=== PATIENT | female | born 1945 | race Caucasian/White ===

== ENCOUNTER 2016-07-31 07:48 | Day surgery (SDC) | payer MEDICARE, MEDICAID ==
[~2016-07-31 07:48] MED LIST: EPINEPHrine 1:10,000 1 MG/10 ML Syringe ONE; Midazolam 1 MG/ML 2 ML SDV ONE; Propofol 200 MG/20 ML SDV ONE
[2016-07-31] MEDS ORDERED: Sodium Chloride 0.9% 10 ML Syringe FLUSH PRN (08:00)
[2016-07-31] MEDS ORDERED: Sodium Chloride 0.9% 1,000 ML IV SCH (08:00)
[2016-07-31] MEDS ORDERED: Propofol 200 MG/20 ML SDV ONE (08:54)
[2016-07-31] MEDS ORDERED: Midazolam 1 MG/ML 2 ML SDV ONE (08:54)
--- NOTE | 2016-07-31 09:25 | PCM.OPNOTE ---
- General Post-Op/Procedure Note Date of Surgery/Procedure: 07/31/16 Operative Procedure(s): Upper GI endoscopy Pre Op Diagnosis: And deficiency anemia and upper abdominal pain. Rule out gastric ulcer, gastritis, gastric malignancy, etc. Post-Op Diagnosis: Same Anesthesia Technique: MAC Primary Surgeon: Rafael Molina Complications: None Condition: Good Free Text/Narrative:: INFORMED CONSENT: Patient is here today for elective upper GI endoscopy. All aspects of this procedure have been discussed with the patient. All possible complications also, including possibility of perforation, infection, pain, bleeding, numbness of the throat, swallowing difficulty and unknown complications. In the event of perforation the patient may need surgical exploration to repair the defect. The patient understands fully well. Patient did not have any further questions for me at the end of my interview. The patient wishes for me to proceed. INSTRUMENT USED: Video gastroscope ANESTHESIA: [MAC] ASA CLASSIFICATION: [2] PROCEDURE PERFORMED: [upper GI endoscopy] PHARYNX: Normal. ESOPHAGUS: Normal. Proximal: Normal. Middle: Normal. Lower: Normal. GE Junction: Normal. STOMACH: Normal. Cardia: Normal. Fundus: Normal. Lesser Curvature: Normal. Greater Curvature: Normal. Antrum: Normal. Pylorus: Normal. DUODENUM: Normal. First Part: Normal. Second Part: Normal. Third Part: Normal. RETROFLEXION: Normal. BIOPSY: None. TOLERANCE: Excellent. COMPLICATIONS: None.
[2016-07-31 10:26] VITALS: BP 93/57
== END 2016-07-31 10:50 | disposition home or self-care (01) ==
LOC: KA.SDS 07:48
PROVIDERS: ATTEND Family Medicine
DX: D50.9 Iron deficiency anemia, unspecified (principal); R10.10 Upper abdominal pain, unspecified; E11.22 Type 2 diabetes mellitus with diabetic chronic kidney disease; N18.3 Chronic kidney disease, stage 3 (moderate); Z88.0 Allergy status to penicillin; Z88.1 Allergy status to other antibiotic agents; Z88.8 Allergy status to other drugs, medicaments and biological substances; Z91.018 Allergy to other foods; K21.9 Gastro-esophageal reflux disease without esophagitis; Z79.84 Long term (current) use of oral hypoglycemic drugs; Z79.899 Other long term (current) drug therapy
CPT/HCPCS: 00740; 43235; 82962; 85018; J2250; J2704; J7030; 93005

== ENCOUNTER 2016-08-02 09:38 | Day surgery (SDC) | payer MEDICARE, MEDICAID ==
[2016-08-02] MEDS ORDERED: Sodium Chloride 0.9% 5 ML Syringe FLUSH PRN (10:00)
[2016-08-02] MEDS ORDERED: Sodium Chloride 0.9% 1,000 ML IV SCH (10:00)
[2016-08-02] MEDS ORDERED: Propofol 200 MG/20 ML SDV ONE ×2 (10:24→10:49)
[2016-08-02] MEDS ORDERED: Midazolam 1 MG/ML 2 ML SDV ONE (10:24)
[2016-08-02] MEDS ORDERED: Sodium Chloride 0.9% 100 ML ONE (10:42)
[2016-08-02] MEDS ORDERED: Propofol 200 MG/20 ML SDV IV ONE ×2 (11:22→11:23)
[2016-08-02] MEDS ORDERED: Midazolam 1 MG/ML 2 ML SDV IV ONE (11:22)
--- NOTE | 2016-08-02 12:04 | PCM.OPNOTE ---
- General Post-Op/Procedure Note Date of Surgery/Procedure: 08/02/16 Operative Procedure(s): Colonoscopy Findings: normal colonoscopy Anesthesia Technique: MAC Primary Surgeon: Rafael Molina Complications: None Condition: Good Free Text/Narrative:: INFORMED CONSENT: Patient is here today for elective colonoscopy. All aspects of this procedure have been discussed with the patient. All possible complications also, including possibility of perforation, infection, pain, bleeding and unknown complications. In the event of perforation patient may need to have abdominal exploration, colon resection, colostomy and even was discussed. Anesthetic complications were handled by anesthesia department. The patient understands fully well. Patient did not have any further questions for me at the end of my interview. The patient wishes for me to proceed. PREOPERATIVE DIAGNOSIS/INDICATIONS: [anemia, rule out colonic bleeding] POSTOPERATIVE DIAGNOSIS: [multiple diverticulosis of the sigmoid colon] INSTRUMENT USED: Bee There videocolonoscope. ASA CLASSIFICATION: [2] ANESTHESIA: Continuous EKG, oximetry and intermittent blood pressure and respiratory monitoring were performed throughout the procedure. IV Versed and Fentanyl were administered. PROCEDURE PERFORMED: Colonoscopy POSITIONS OF PATIENT: Left lateral. RECTUM: Normal. SIGMOID COLON: Multiple diverticulosis without actual bleeding. DESCENDING COLON: Normal. SPLENIC FLEXURE: Normal. TRANSVERSE COLON: Normal. HEPATIC FLEXURE: Normal. ASCENDING COLON: Normal. CECUM: Normal. ILEOCECAL VALVE: Normal. BIOPSY: None. TOLERANCE: Excellent. COMPLICATIONS: None. Final diagnosis: Multiple diverticulosis of the sigmoid colon
[2016-08-02 13:12] VITALS: BP 127/66
== END 2016-08-02 14:20 | disposition home or self-care (01) ==
LOC: KA.SDS 09:38
PROVIDERS: ATTEND Family Medicine
DX: K57.30 Diverticulosis of large intestine without perforation or abscess without bleeding (principal); E11.22 Type 2 diabetes mellitus with diabetic chronic kidney disease; N18.3 Chronic kidney disease, stage 3 (moderate); E03.9 Hypothyroidism, unspecified; E79.0 Hyperuricemia without signs of inflammatory arthritis and tophaceous disease; Z88.0 Allergy status to penicillin; Z88.1 Allergy status to other antibiotic agents; Z88.8 Allergy status to other drugs, medicaments and biological substances; Z91.018 Allergy to other foods
CPT/HCPCS: 45378; 82962; J2250; J2370; J2704; J7050; 00810

== ENCOUNTER 2016-12-06 07:04 | Day surgery (SDC) | payer MEDICARE, MEDICAID ==
[~2016-12-06 07:04] MED LIST changes: -EPINEPHrine 1:10,000 1 MG/10 ML Syringe ONE; +Sodium Chloride 0.9% 1,000 ML IV SCH; +Sodium Chloride 0.9% 5 ML Syringe FLUSH PRN; +fentaNYL 100 MCG/2 ML SDV ONE
[2016-12-06] MEDS ORDERED: Sodium Chloride 0.9% 100 ML ONE (07:51)
[2016-12-06] MEDS ORDERED: Gentamicin 40 MG/ML 2 ML Vial ONE (07:52)
[2016-12-06] MEDS ORDERED: Propofol 200 MG/20 ML SDV ONE (07:56)
[2016-12-06] MEDS ORDERED: Midazolam 1 MG/ML 2 ML SDV IV ONE (08:34)
[2016-12-06] MEDS ORDERED: Propofol 200 MG/20 ML SDV IV ONE (08:34)
[2016-12-06] MEDS ORDERED: fentaNYL 100 MCG/2 ML SDV IV ONE (08:34)
--- NOTE | 2016-12-06 09:25 | PCM.OPNOTE ---
- General Post-Op/Procedure Note Date of Surgery/Procedure: 12/06/16 Operative Procedure(s): Hysteroscopy and D and C. Findings: Atrophic Uterus. No adnexal masses. Anesthesia Technique: MAC Primary Surgeon: Rafael Molina Complications: None Condition: Good Free Text/Narrative:: Preoperative diagnosis: Abnormal thickening of the endometrium, postmenopausal spotting. Postoperative diagnosis: As above. Procedure proposed: Hysteroscopy and D&C. Informed consent was obtained from the patient regarding this procedure. All possible complications were thoroughly discussed with the patient. These include infection pain bleeding perforation of uterus etc. She decided to proceed. The patient was taken to the operating room and kept in the supine position. Satisfactory anesthesia was administered by the toddler guide. Following this, she was placed in the lithotomy position. Her genitals were thoroughly prepped and draped in the usual fashion. A bimanual examination was performed. This revealed an atrophic uterus in the anteverted position. No adnexal masses were palpated. There was evidence of atrophic vaginitis. A weighted speculum was placed in the posterior vaginal wall. An anterior vaginal retractor was used and the anterior lip of the cervix was held with a tenaculum. The endocervical canal was dilated gently. Hysteroscopy was accomplished using glycine. No distinct abnormalities of the endometrial cavity were seen. We used a Kevorkian curette and curetted scant curettings. These were sent for pathology in a liquid container.. Mostly mucus-like tissue was retrieved. The instruments were removed. The patient tolerated the procedure well without any complications. Blood loss was 0. She was transferred to the recovery room in an excellent condition.
[2016-12-06 11:35] VITALS: BP 143/79
== END 2016-12-06 11:05 ==
LOC: KA.SDS 07:04
PROVIDERS: ATTEND Family Medicine
DX: C54.1 Malignant neoplasm of endometrium (principal); E11.22 Type 2 diabetes mellitus with diabetic chronic kidney disease; I12.9 Hypertensive chronic kidney disease with stage 1 through stage 4 chronic kidney disease, or unspecified chronic kidney disease; N18.3 Chronic kidney disease, stage 3 (moderate); E79.0 Hyperuricemia without signs of inflammatory arthritis and tophaceous disease; E03.9 Hypothyroidism, unspecified; E78.5 Hyperlipidemia, unspecified; J44.9 Chronic obstructive pulmonary disease, unspecified; F41.9 Anxiety disorder, unspecified; F31.9 Bipolar disorder, unspecified; Z88.0 Allergy status to penicillin; Z79.4 Long term (current) use of insulin; Z88.1 Allergy status to other antibiotic agents; Z88.8 Allergy status to other drugs, medicaments and biological substances; Z91.018 Allergy to other foods; Z79.899 Other long term (current) drug therapy; Z79.82 Long term (current) use of aspirin
CPT/HCPCS: 00940; 58558; 82962; J1580; J2250; J2704; J3010; J7030; J7050; 88112; 88305

== ENCOUNTER 2017-01-23 11:11 | Inpatient (IN) | payer MEDICARE, MEDICAID ==
[2017-01-23] MEDS ORDERED: Sodium Chloride 0.9% 5 ML Syringe FLUSH PRN (12:12)
[2017-01-23] MEDS: Pantoprazole 40 MG Vial IVPUSH SCH (12:44)
[2017-01-23] MEDS ORDERED: guaiFENesin/Dextromethorphan 100-10 MG/5 ML Soln 5 ML Cup PO PRN (17:49)
[2017-01-23] MEDS ORDERED: Loperamide 2 MG Cap PO PRN ×2 (17:49→18:20)
[2017-01-23] MEDS ORDERED: Meclizine 25 MG Tab PO PRN (17:49)
[2017-01-23] MEDS ORDERED: Magnesium Hydroxide 400 MG/5 ML Susp 30 ML Cup PO PRN (17:49)
[2017-01-23] MEDS ORDERED: Saliva Substitute Oral Spray 120 ML Bottle MUCMEM PRN (17:49)
[2017-01-23] MEDS ORDERED: PHENYLEPHRINE HCL 10 MG PO PRN (17:49)
[2017-01-23] MEDS ORDERED: Trolamine Salicylate/Aloe Vera 10% Crm 85 GM Tube TOP PRN (17:49)
[2017-01-23] MEDS ORDERED: Acetaminophen 325 MG Tab PO PRN (17:49)
[2017-01-23] MEDS ORDERED: SENNOSIDES 17.2 MG PO SCH (18:00)
[2017-01-23] MEDS: Docusate Sodium 100 MG Cap PO SCH (18:43)
[2017-01-23] MEDS: Acetaminophen 500 MG Tab PO SCH (20:06)
[2017-01-23] MEDS: Fluticasone/Salmeterol 100-50 MCG Inhalation Powder 14/Diskus INH SCH (20:07)
[2017-01-23] MEDS: traZODone 50 MG Tab PO SCH (20:07)
[2017-01-23] MEDS: traMADol 50 MG Tab PO SCH (20:07)
[2017-01-23] MEDS: Allopurinol 100 MG Tab PO SCH (20:07)
[2017-01-23] MEDS ORDERED: LURASIDONE HCL 120 MG PO SCH (21:00)
[2017-01-23] MEDS ORDERED: Non-Formulary Medication 1 Each (Propylene Glycol/Peg 400 [Systane 0.3-0.4% Eye Drops] 1 D EYEBOTH SCH (22:00)
[2017-01-24] MEDS: Pantoprazole 40 MG Vial IVPUSH SCH (08:22)
[2017-01-24] MEDS: Allopurinol 100 MG Tab PO SCH ×2 (08:22→20:33)
[2017-01-24] MEDS: Docusate Sodium 100 MG Cap PO SCH (08:23)
[2017-01-24] MEDS: Furosemide 20 MG Tab PO SCH (08:23)
[2017-01-24] MEDS: Levothyroxine 88 MCG Tab PO SCH (08:23)
[2017-01-24] MEDS: traMADol 50 MG Tab PO SCH ×3 (08:24→20:35)
[2017-01-24] MEDS: Acetaminophen 500 MG Tab PO SCH ×2 (08:45→20:33)
[2017-01-24] MEDS ORDERED: Furosemide 20 MG Tab PO SCH (09:00)
[2017-01-24] MEDS: Fluticasone/Salmeterol 100-50 MCG Inhalation Powder 14/Diskus INH SCH ×2 (09:53→20:31)
[2017-01-24] MEDS: Carboxymethylcellulose Sodium 0.5% Ophth Soln 15 ML Bottle EYEBOTH SCH ×3 (10:50→21:07)
--- NOTE | 2017-01-24 13:37 | PN ---
01/24/2017 PATIENT NAME: GONZÁLEZ SALAZAR HISTORY: This patient is a resident of [facility]. She was admitted last night by a local [facility] with some concerns of some bloody bright red stool she had the previous night. The patient did state that she did have a significant amount of bright red blood through her rectum x1. She did complain of some abdominal pain prior to that. The patient is on aspirin. However, that was held on admission. 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 She is also a diabetic. The patient stated that she got somewhat lightheaded and dizzy. The provider noted significant pallor. Hemoglobin at [facility] prior to admission was 10.8. The patient was admitted in inpatient status, monitoring for hemoglobin instability, and possible need for blood transfusion. Hospital course to date uneventful. The patient has not had any further rectal bleeding. However, she has not had a bowel movement in a few days. Vital signs this morning, heart rate 100, blood pressure is improved to 123/62. Adequate mean arterial pressures 70s to 90, temperature 98.3, and O2 saturation 95%. Respiratory rate 16. She is on room air. LABORATORY DATA: This morning, hemoglobin 9.2. Other diagnostics, labs [facility], dated 01/23/2017, white count 13.0, hemoglobin 10.8, hematocrit 31.9, MCH, MCV normal; however, RDW slightly elevated 16.0, platelets 454,000. No neutrophilia. Electrolytes un-concerning, BUN and creatinine 13 and 0.97. Fecal occult blood positive. TIBC 272, iron saturation is 8, ferritin 48, serum folate 20, albumin 3.2, vitamin B12 normal at 883. PHYSICAL EXAM: See vital signs above. GENERAL: Patient alert and oriented x3. CV: Regular rate and rhythm. LUNGS: Clear to auscultation. No shortness of breath. ABDOMEN: Soft. Bowel tones are hypotonic. No ascites noted. No CVA tenderness. SKIN: Slightly pallor. IMPRESSION AND PLAN: 1. Lower GI bleeding seems to have resolved and hemoglobin currently 9.2, placed on Protonix. Continue holding aspirin. No hemodynamic instability right now, however, heart rate around 100, however, no syncope. Nontender abdomen. 2. Atrophic gastritis, now on PPI. Hold aspirin. 3. History of diverticular, could be contributory. 4. Endometrial adenocarcinoma with nonsquamous cell carcinoma neoplasm left lung. Other chronic medical conditions include history of hypertension. 5. Asthma seems stable. Chronic kidney disease. BUN 13, creatinine 0.97, GFR 55. OVERALL PLAN AND DISPOSITION: Patient likely could benefit from one more day to observe for any ongoing lower GI bleeding. We will monitor hemoglobin in the a.m. Place her back on her normal diet. Monitor for any lightheadedness, orthostatics. Monitor for any hemodynamic instability and blood pressure today. PPI therapy. Continue holding aspirin. /[id number]/MODL
[2017-01-24] MEDS: traZODone 50 MG Tab PO SCH (20:32)
[2017-01-24] MEDS ORDERED: LURASIDONE HCL 120 MG PO SCH (21:00)
[2017-01-25 06:43] VITALS: BP 124/78
[2017-01-25] MEDS ORDERED: Docusate Sodium 100 MG Cap PO SCH (08:00)
[2017-01-25] MEDS: Levothyroxine 88 MCG Tab PO SCH (08:14)
[2017-01-25] MEDS: Pantoprazole 40 MG Vial IVPUSH SCH (08:14)
[2017-01-25] MEDS: Allopurinol 100 MG Tab PO SCH (08:15)
[2017-01-25] MEDS: Acetaminophen 500 MG Tab PO SCH (08:15)
[2017-01-25] MEDS: Furosemide 20 MG Tab PO SCH (08:15)
[2017-01-25] MEDS: traMADol 50 MG Tab PO SCH (08:18)
--- NOTE | 2017-01-26 08:23 | DISCH ---
ADMITTING DIAGNOSIS: Gastrointestinal bleed. DISCHARGE DIAGNOSIS: Rectal bleeding, has resolved. BRIEF HISTORY AND ESSENTIAL PHYSICAL FINDINGS: The patient lives at [facility]. At about 11:40 p.m. at night, the patient was up to the bathroom. She had an explosive bright red stool. Nursing staff was concerned. She was brought to the clinic the next morning. The patient's blood pressure was slightly low at 100/60. She was pale in color. She was concerned because she says it was a lot of blood that came out. She was admitted to the hospital at that time. Her aspirin was held. She was started on Protonix 40 mg IV daily. She had continuing troponins which were stable. No further episodes of rectal bleeding. SIGNIFICANT LABS XRAYS AND CONSULTATION FINDINGS: The patient's hemoglobin on 01/23/2017 was 10.1; recheck every 6 hours showed 9.7, 9.2, and then today on date of discharge, which was 01/25/2017, was 9.36. COURSE IN HOSPITAL WITH COMPLICATIONS IF ANY: The patient was admitted. She had no bloody stools throughout the hospital stay. Blood pressure was stable. She was able to tolerate a regular diet. No further blood stools. CONDITION TREATMENT AND FINAL DISPOSITION ON DISCHARGE AND PROGNOSIS: Condition is stable. Final disposition will be back to [facility]. IMPRESSION AND PLAN: 1. Gastrointestinal bleed with history of atrophic gastritis. Plan: We are going to send the patient back to [facility] today. We are going to continue to hold her aspirin at this time. We are going to send her back on Protonix 40 mg daily in the morning. She can continue with a regular diet. We will have her follow up in the clinic in one week. We will continue with Colace. The patient's hemoglobin was stable today at 9.3 on day of discharge. No abdominal pain. If the patient has any further rectal bleeding, the patient will need to be set up for colonoscopy. 2. History of gout. Plan: Continue with allopurinol 100 mg daily. 3. History of chronic obstructive pulmonary disease. Plan: Continue with Advair Diskus 100/50 one inhalation twice daily. 4. History of hypertension. Plan: Continue with Lasix 20 mg daily. 5. History of hypothyroidism. Plan: Continue with levothyroxine 88 mcg daily. 6. Chronic pain. Plan: Continue with tramadol 50 mg three times a day. 7. Insomnia. Plan: Continue with trazodone 75 mg at bedtime schedule. OVERALL PLAN: The patient will be discharged home. We are going to continue to hold aspirin and continue the patient on Protonix 40 mg daily. The patient will need to follow up next week to see how she is doing. Any further bleeding, the patient will need colonoscopy. /[id number]/MODL
== END 2017-01-25 10:00 | DRG 379 ==
LOC: KA.MS 12:08
PROVIDERS: ADMIT Physician Assistant; ATTEND Family Medicine
DX: K29.41 Chronic atrophic gastritis with bleeding (principal); J44.9 Chronic obstructive pulmonary disease, unspecified; I10 Essential (primary) hypertension; M10.9 Gout, unspecified; E03.9 Hypothyroidism, unspecified; G89.29 Other chronic pain; G47.00 Insomnia, unspecified; J45.909 Unspecified asthma, uncomplicated; Z79.899 Other long term (current) drug therapy; Z88.0 Allergy status to penicillin; Z88.8 Allergy status to other drugs, medicaments and biological substances; Z85.118 Personal history of other malignant neoplasm of bronchus and lung; Z85.89 Personal history of malignant neoplasm of other organs and systems
CPT/HCPCS: 36415; 85018; 86850; 86900; 86901; A9270-GY; C9113

== ENCOUNTER 2018-03-05 12:05 | Inpatient (IN) | payer MEDICARE, MEDICAID ==
[2018-03-05] MEDS ORDERED: Ondansetron 4 MG/2 ML SDV IVPUSH ONE (12:24)
[2018-03-05] MEDS ORDERED: fentaNYL 100 MCG/2 ML SDV IVPUSH ONE ×2 (12:24→13:04)
[2018-03-05 13:07] LABS: CHLORIDE,CL 96 mmol/L (98-115); SODIUM,NA 137 mmol/L (136-145)
--- NOTE | 2018-03-05 13:10 | EDM.PDOC ---
ED HPI GENERAL MEDICAL PROBLEM - General Chief Complaint: General Stated Complaint: chest pain, decreased oxygen saturation Time Seen by Provider: 03/05/18 12:22 Source of Information: Reports: Patient, EMS, EMS Notes Reviewed History Limitations: Reports: No Limitations - History of Present Illness INITIAL COMMENTS - FREE TEXT/NARRATIVE: Patient is a 73-year-old female who presents to the emergency department this afternoon via EMS secondary to chest pain and decreased oxygen saturation. Discomfort started earlier today and was noted by the nurses at [address] [place] [address]. Patient underwent lung lobectomy resection secondary to cancer on March 01. At that time, a chest tube was placed and chest tube was discontinued yesterday March 04. Patient was discharged from the medical facility to the nursing facility. Patient now complains of right sided chest pain and shortness of breath. Patient denies fever, nausea, vomiting, diarrhea, abdominal pain, or headache. Location: Reports: Chest Quality: Reports: Ache, Stabbing Severity: Moderate Improves with: Reports: None Worsens with: Reports: None Context: Reports: Other (Status post lung lobectomy) Associated Symptoms: Reports: Chest Pain, Shortness of Breath. 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 Medication(s) Right Lower Chest Pain Score (Numeric/FACES): 8 - Related Data Allergies Allergy/AdvReac Type Severity Reaction Status Date / Time buspirone HCl [From BuSpar] Allergy Rash Verified 12/13/17 14:56 erythromycin base Allergy UNKNOWN Verified 12/13/17 14:56 lisinopril Allergy Cannot Verified 03/05/18 13:12 Remember Penicillins Allergy Throat Verified 12/13/17 14:56 swelling strawberry Allergy Hives Verified 12/13/17 14:56 Home Meds: Home Meds Acetaminophen [Tylenol] 650 mg PO Q4HR PRN 01/12/14 [History] Docusate Sodium [Colace] 100 mg PO BID@0800,1800 01/12/14 [History] Acetaminophen 1,000 mg PO BID 07/26/16 [History] Allopurinol [Zyloprim] 100 mg PO BID 07/26/16 [History] Iron Aspgly&PS/B12/C/Ca/FA/Suc [Niferex-150 Forte] 150 mg PO TID 07/26/16 [ History] Lurasidone HCl [Latuda] 120 mg PO BEDTIME 07/26/16 [History] Multivit-Min/FA/Lycopene/Lut [Senior Tabs] 1 tab PO DAILY@1800 07/26/16 [History ] Sennosides 17.2 mg PO BID 07/26/16 [History] Propylene Glycol/Peg 400 [Systane 0.3-0.4% Eye Drops] 1 drop EYEBOTH TID@1000, 1600,2200 11/09/16 [History] atorvaSTATin [Lipitor] 5 mg PO BEDTIME 11/09/16 [History] Bisacodyl 10 mg RC DAILY PRN 12/05/16 [History] Magnesium Hydroxide [Milk of Magnesia] 30 ml PO BEDTIME PRN 12/05/16 [History] guaiFENesin/Dextromethorphan [Safetussin DM] 10 ml PO Q4H PRN 12/05/16 [History] Aspirin [Halfprin] 81 mg PO WITHBREAKFAST 01/23/17 [History] Cholecalciferol (Vitamin D3) [Vitamin D3] 2,000 units PO DAILY 01/23/17 [History ] Levothyroxine [Synthroid] 88 mcg PO Q2D 01/23/17 [History] Pantoprazole Sodium [Protonix] 40 mg PO DAILY #30 suspdr.pkt 01/25/17 [Rx] Budesonide [Pulmicort] 0.5 mg IH BID 05/09/17 [History] Letrozole 2.5 mg PO DAILY 05/09/17 [History] Lurasidone [Latuda] 40 mg PO BEDTIME 05/09/17 [History] Albuterol/Ipratropium [DuoNeb 3.0-0.5 MG/3 ML] 1 ampule INH BID 12/13/17 [ History] Fexofenadine HCl [Esther Allergy] 180 mg PO DAILY 12/13/17 [History] Levothyroxine [Synthroid] 44 mcg PO Q2D 12/13/17 [History] Umeclidinium Thorp [Incruse Ellipta*] 1 inh INH DAILY 12/13/17 [History] buPROPion HCl [Wellbutrin Xl] 300 mg PO DAILY 12/13/17 [History] Hydrocodone/Acetaminophen [Hydrocodon-Acetaminophen 5-325] 1 tab PO Q4H PRN [History] Polyethylene Glycol 3350 [MiraLAX] 17 gm PO DAILY 03/05/18 [History] guaiFENesin/Dextromethorphan [Safetussin DM] 10 ml PO Q4H PRN 03/05/18 [History] Past Medical History HEENT History: Reports: Allergic Rhinitis, Cataract, Impaired Vision Cardiovascular History: Reports: High Cholesterol, Hypertension Respiratory History: Reports: Asthma, COPD Other Respiratory History: chronic cough Gastrointestinal History: Reports: Chronic Constipation, Diverticulosis, GERD Genitourinary History: Reports: Renal Disease, Urinary Incontinence Other Genitourinary History: CKD III SNUFF BOX FINISHER History: Reports: Endometriosis, Other SNUFF BOX FINISHER History: D&C, Endometriosis biopsy 11/28. Musculoskeletal History: Reports: Arthritis, Back Pain, Chronic, Fracture Other Musculoskeletal History: chronic arm, low back and foot pain. SPONDYLOSIS. HYPERURICEMIA Neurological History: Reports: Vertigo Psychiatric History: Reports: Anxiety, Bipolar, Depression Other Psychiatric History: personality disorder. generalized anxiety disorder. 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 breast cancer - Infectious Disease History Infectious Disease History: Reports: None - Past Surgical History Head Surgeries/Procedures: Reports: None HEENT Surgical History: Reports: Cataract Surgery, Oral Surgery, Tonsillectomy Cardiovascular Surgical History: Reports: None Respiratory Surgical History: Reports: Other (See Below) Other Respiratory Surgeries/Procedures: right lobectomy GI Surgical History: Reports: Cholecystectomy, Colonoscopy, EGD Female Surgical History: Reports: Breast Biopsy, Section Endocrine Surgical History: Reports: None Other Neurological Surgeries/Procedures: Hx of neck surgery Musculoskeletal Surgical History: Reports: None Oncologic Surgical History: Reports: Biopsy of Breast, Lobectomy, Lumpectomy Social & Family History - Family History Family Medical History: Noncontributory Cardiac: Reports: Heart Failure - Tobacco Use Smoking Status *Q: Former Smoker Used Tobacco, but Quit: Yes Month/Year Tobacco Last Used: 50 years ago Second Hand Smoke Exposure: No - Caffeine Use Caffeine Use: Reports: Coffee, Soda Other Caffeine Use: coke - Recreational Drug Use Recreational Drug Use: No ED ROS GENERAL - Review of Systems Review Of Systems: ROS reveals no pertinent complaints other than HPI. Constitutional: Reports: No Symptoms HEENT: Reports: No Symptoms Respiratory: Reports: Shortness of Breath, Pleuritic Chest Pain Cardiovascular: Reports: Chest Pain Endocrine: Reports: No Symptoms GI/Abdominal: Reports: No Symptoms : Reports: No Symptoms Musculoskeletal: Reports: No Symptoms Skin: Reports: No Symptoms Neurological: Reports: No Symptoms Psychiatric: Reports: No Symptoms Hematologic/Lymphatic: Reports: No Symptoms Immunologic: Reports: No Symptoms ED EXAM, GENERAL - Physical Exam Exam: See Below Exam Limited By: No Limitations General Appearance: Alert, WD/WN, Mild Distress Eye Exam: Bilateral Eye: Normal Inspection Nose: Normal Inspection, Normal Mucosa, No Blood Throat/Mouth: Normal Inspection, Normal Oropharynx, No Airway Compromise Head: Atraumatic, Normocephalic Neck: Normal Inspection, Supple Respiratory/Chest: Decreased Breath Sounds (Right upper and lower). No: Accessory Muscle Use Cardiovascular: No Murmur, Tachycardia GI/Abdominal: Normal Bowel Sounds, Soft, Non-Tender Back Exam: Normal Inspection. No: CVA Tenderness (L), CVA Tenderness (R) Extremities: Pedal Edema (Bilateral of chronic nature) Neurological: Alert, Oriented, Normal Cognition Psychiatric: Normal Affect, Normal Mood Skin Exam: Warm, Dry, Intact, Normal Color, No Rash EKG INTERPRETATION EKG Date: 03/05/18 Time: 12:50 Rhythm: Other (Sinus tachycardia with PACs) Rate (Beats/Min): 104 [place]: Normal P-Wave: Present QRS: Normal ST-T: Normal QT: Normal Course - Vital Signs Last Recorded V/S: Last Vital Signs Temp 97.4 F 03/05/18 12:21 Pulse 117 H 03/05/18 14:32 Resp 19 03/05/18 14:32 BP 121/48 L 03/05/18 14:32 Pulse Ox 93 L 03/05/18 14:32 - Orders/Labs/Meds Orders: Active Orders 24 hr Category Date Time Status Patient Status [ADT] Routine ADT 03/05/18 14:54 Ordered EKG Documentation Completion [RC] ASDIRECTED Care 03/05/18 12:23 Ordered Oxygen Therapy [RC] PRN Care 03/05/18 14:54 Ordered Peripheral IV Care [RC] . DIRECTED Care 03/05/18 13:54 Ordered VTE/DVT Education [RC] PER UNIT ROUTINE Care 03/05/18 14:54 Ordered Vital Signs [RC] Q4H Care 03/05/18 14:54 Ordered Sodium Chloride 0.9% [Saline Flush] Med 03/05/18 13:54 Ordered 10 ml FLUSH Q8HR PRN Peripheral IV Insertion Adult [OM.PC] Routine Oth 03/05/18 13:54 Ordered Resuscitation Status Routine Resus Stat 03/05/18 14:54 Ordered Medication Orders Sodium Chloride (Saline Flush) 10 ml FLUSH Q8HR PRN PRN Reason: keep vein open Labs: Laboratory Tests 03/05/18 03/05/18 03/05/18 Range/Units 12:23 12:23 12:23 WBC 13.85 H (5.00-10.00) 10^3/uL RBC 4.26 (3.80-5.50) 10^6/uL Hgb 13.5 (12.0-16.0) g/dL Hct 40.4 (37.0-47.0) % MCV 94.8 H D (82.0-92.0) fL MCH 31.7 H (27.0-31.0) pg MCHC 33.4 (32.0-36.0) g/dL RDW 13.2 (11.5-14.5) % Plt Count 361 (150-400) 10^3/uL MPV 10.0 (7.4-10.4) fL Immature Gran % (Auto) 0.2 (0.0-5.0) % Neut % (Auto) 77.6 H (50.0-70.0) % Lymph % (Auto) 11.0 L (20.0-40.0) % [place] % (Auto) 9.3 H (2.0-8.0) % Eos % (Auto) 1.6 (1.0-3.0) % Baso % (Auto) 0.3 (0.0-1.0) % Immature Gran # (Auto) 0.03 (0.00-0.50) 10^3/uL Neut # (Auto) 10.75 H (2.50-7.00) 10^3/uL Lymph # (Auto) 1.52 (1.00-4.00) 10^3/uL [place] # (Auto) 1.29 H (0.10-0.80) 10^3/uL Eos # (Auto) 0.22 (0.10-0.30) 10^3/uL Baso # (Auto) 0.04 (0.00-0.10) 10^3/uL PT 11.2 (8.9-11.4) SEC INR 1.1 (0.9-1.1) APTT 26.8 (20.8-31.2) SEC Sodium 137 (136-145) mmol/L Potassium 3.9 (3.3-5.3) mmol/L Chloride 96 L (98-115) mmol/L Carbon Dioxide 25.9 (21.0-32.0) mmol/L Anion Gap 19.0 H (5-15) mmol/L BUN 20 (6-25) mg/dL Creatinine 0.86 (0.51-1.17) mg/dL Est Cr Clr Drug Dosing 44.70 mL/min Estimated GFR (MDRD) > 60 mL/min Glucose 113 H (75 - 99) mg/dL Calcium 9.8 (8.7-10.3) mg/dL Total Bilirubin 0.4 (0.2-1.0) mg/dL AST 39 H (15-37) U/L ALT 35 (12-78) U/L Alkaline Phosphatase 136 H (46-116) IU/L Troponin I < 0.04 (0.00-0.070) ng/mL Total Protein 7.7 (6.4-8.2) g/dL Albumin 3.12 (3.00-4.80) g/dL Meds: Medications Generic Name Dose Route Start Last Admin Trade Name Freq PRN Reason Stop Dose Admin Sodium Chloride 10 ml 03/05/18 13:54 Saline Flush FLUSH Q8HR PRN keep vein open Discontinued Medications Generic Name Dose Route Start Last Admin Trade Name Freq PRN Reason Stop Dose Admin Fentanyl 50 mcg 03/05/18 12:24 03/05/18 12:30 Sublimaze IVPUSH 03/05/18 12:25 50 mcg ONETIME ONE Administration Fentanyl 50 mcg 03/05/18 13:04 03/05/18 13:09 Sublimaze IVPUSH 03/05/18 13:05 50 mcg ONETIME ONE Administration Ondansetron HCl 4 mg 03/05/18 12:24 03/05/18 12:30 Zofran IVPUSH 03/05/18 12:25 4 mg ONETIME ONE Administration - Radiology Interpretation Free Text/Narrative:: CT chest without contrast shows postsurgical changes without pneumothorax CT Results Date: 03/05/18 CT Results Time: 14:15 - Re-Assessments/Exams Free Text/Narrative Re-Assessment/Exam: 03/05/18 14:[address] Zepeda, cardiothoracic surgery at [facility]. She stated that the patient did require oxygen, as well as fentanyl drip during her hospital stay. She would anticipate continued requirement of oxygen and pain control. Would be okay to admit to [facility] Discussed case with Dr. Aurora Isidro and patient will be admitted and followed. 03/05/18 14:56 Departure - Departure Time of Disposition: 14:52 Disposition: Admitted As Inpatient 64 Condition: Fair Clinical Impression: Hypoxia, Postoperative pain Chest pain Qualifiers: Chest pain type: unspecified Qualified Code(s): R07.9 - Chest pain, unspecified - Discharge Information Referrals: Inga Molina MD [Primary Care Provider] - Forms: ED Department Discharge - My Orders Last 24 Hours: My Active Orders 03/05/18 12:23 EKG Documentation Completion [RC] ASDIRECTED 03/05/18 13:54 Peripheral IV Care [RC] . DIRECTED Sodium Chloride 0.9% [Saline Flush] 10 ml FLUSH Q8HR PRN Peripheral IV Insertion Adult [OM.PC] Routine 03/05/18 14:54 Patient Status [ADT] Routine Oxygen Therapy [RC] PRN VTE/DVT Education [RC] PER UNIT ROUTINE Vital Signs [RC] Q4H Resuscitation Status Routine - Assessment/Plan Last 24 Hours: My Active Orders 03/05/18 12:23 EKG Documentation Completion [RC] ASDIRECTED 03/05/18 13:54 Peripheral IV Care [RC] . DIRECTED Sodium Chloride 0.9% [Saline Flush] 10 ml FLUSH Q8HR PRN Peripheral IV Insertion Adult [OM.PC] Routine 03/05/18 14:54 Patient Status [ADT] Routine Oxygen Therapy [RC] PRN VTE/DVT Education [RC] PER UNIT ROUTINE Vital Signs [RC] Q4H Resuscitation Status Routine Assessment:: Postop chest pain, hypoxia Plan: Admit inpatient to Dr. Aurora isidro
[2018-03-05] MEDS ORDERED: Sodium Chloride 0.9% 10 ML Syringe FLUSH PRN (13:54)
--- NOTE | 2018-03-05 14:11 | CT ---
[id number] CT/CT Chest WO IV EXAM: CT Chest WO IV CLINICAL DATA: SHORTNESS OF BREATH, LOW O2 SATS, PULLED CHEST TUBE COMPARISON: July 2017. FINDINGS: LUNGS: Post surgical change in the right lung apex from prior partial lobectomy. Adjacent to the suture line is parenchymal opacification measuring 6 cm AP by 2.7 cm transverse by 27 mm craniocaudal. Additionally, in the pleural space overlying the surgical site, small amount of air consistent with a small amount of pneumothorax in the setting of recent postoperative change. In the remainder of the right upper lobe there are geographic areas of groundglass parenchymal opacification, some of which also contain centrilobular nodularity. Etiology is nonspecific. In the acute setting, infectious/inflammatory or sequela of fluid retention is most likely etiology. Numerous opacified segmental and subsegmental airways distal to the bronchus intermedius supplying the right lower lobe. Similar findings are seen in July 2017, however to a lesser extent. Small right pleural effusion. Left lung demonstrates changes of pleural/parenchymal scarring as well without focal abnormality. HEART AND GREAT VESSELS: Coronary artery atherosclerosis. Mitral valve annulus calcification. Thoracic aorta atherosclerosis. MEDIASTINUM AND LYMPHATICS: No mediastinal or hilar lymphadenopathy. UPPER ABDOMINAL ORGANS: Small sliding-type hiatus hernia. IMPRESSION: Numerous opacified segmental and subsegmental airway supplying the right lower lobe. Findings are most consistent with either aspiration or mucous plugging. Of note, similar findings were seen in July 2017 however to a lesser extent. Post surgical change from recent right upper lobe lung nodule resection with associated findings, described above. Parenchymal opacification in the right upper lobe is most consistent with either fluid retention versus infectious/inflammatory change in the recent postoperative setting. Consider follow-up examination in 3-6 months for further evaluation. Sushant Marcos MD 03/05/18 [id number] Thank you for allowing us to participate in the care of your patient.
[2018-03-05] MEDS: oxyCODONE 5 MG Tab PO PRN ×2 (16:45→20:45)
[2018-03-05] MEDS ORDERED: Carboxymethylcellulose Sodium 0.5% Ophth Soln 15 ML Bottle EYEBOTH PRN (17:11)
[2018-03-05] MEDS: Acetaminophen 325 MG Tab PO SCH ×2 (18:16→21:30)
[2018-03-05] MEDS: Sodium Chloride 0.9% 1,000 ML IV SCH (18:28)
[2018-03-05] MEDS: Docusate Sodium 100 MG Cap PO SCH (18:28)
[2018-03-05] MEDS: atorvaSTATin 10 MG Tab PO SCH (20:45)
[2018-03-05] MEDS: Albuterol/Ipratropium 3.0-0.5 MG/3 ML Neb Soln INH SCH (20:46)
[2018-03-05] MEDS: Allopurinol 100 MG Tab PO SCH (20:46)
[2018-03-05] MEDS: LURASIDONE HCL 120 MG PO SCH (21:26)
[2018-03-05] MEDS: LURASIDONE 40 MG PO SCH (21:26)
[2018-03-05] MEDS: Budesonide 0.5 MG/2 ML Neb Susp NEB SCH (21:35)
[2018-03-05] MEDS ORDERED: oxyCODONE 5 MG Tab PO ONE (23:04)
[2018-03-06] MEDS: oxyCODONE 5 MG Tab PO PRN ×5 (02:41→20:00)
[2018-03-06] MEDS ORDERED: oxyCODONE 5 MG Tab PO ONE (04:30)
[2018-03-06] MEDS ORDERED: fentaNYL 100 MCG/2 ML SDV IVPUSH ONE (04:48)
[2018-03-06] MEDS: Acetaminophen 325 MG Tab PO SCH ×4 (05:13→22:12)
[2018-03-06] MEDS: Levothyroxine 88 MCG Tab PO SCH (06:23)
[2018-03-06 07:58] LABS: ANION GAP 9.4 mmol/L (5-15); CHLORIDE,CL 101 mmol/L (98-115); SODIUM,NA 137 mmol/L (136-145)
[2018-03-06] MEDS: Cholecalciferol (Vitamin D3) 1,000 Unit Tab PO SCH (08:10)
[2018-03-06] MEDS: Docusate Sodium 100 MG Cap PO SCH ×2 (08:10→19:44)
[2018-03-06] MEDS: Multivitamins with Minerals/Iron/Folic Acid/Lycopene Tab PO SCH (08:10)
[2018-03-06] MEDS: Omeprazole 20 MG Cap.CR PO SCH (08:10)
[2018-03-06] MEDS: Allopurinol 100 MG Tab PO SCH ×2 (08:10→20:05)
[2018-03-06] MEDS: Aspirin 81 MG Tab.EC PO SCH (08:10)
[2018-03-06] MEDS: LETROZOLE 2.5 MG PO SCH (08:27)
[2018-03-06] MEDS: Albuterol/Ipratropium 3.0-0.5 MG/3 ML Neb Soln INH SCH ×2 (08:33→20:02)
[2018-03-06] MEDS: Budesonide 0.5 MG/2 ML Neb Susp NEB SCH ×2 (11:30→20:51)
[2018-03-06] MEDS: buPROPion 300 MG Tab.ER PO SCH (11:49)
[2018-03-06] MEDS: Sodium Chloride 0.9% 1,000 ML IV SCH (11:54)
--- NOTE | 2018-03-06 11:59 | PCM.HP ---
H&P History of Present Illness - General Date of Service: 03/06/18 Admit Problem/Dx: Admission Diagnosis/Problem Admission Diagnosis/Problem Hypoxia Source of Information: Patient, Old Records, Provider History Limitations: Reports: No Limitations. Denies: Respiratory Distress - History of Present Illness Initial Comments - Free Text/Narative: 73-year-old patient who is a resident of a [facility] and is status post right upper lobe lobectomy [facility], presented to the ED via EMS secondary to chest pain and decreased oxygen saturation. Patient underwent right upper lobectomy resection secondary to cancer on Sunday, March 01. At that time, a chest tube was placed and chest tube was discontinued March 04. Patient was discharged from [facility] back to [facility] [place] [employer] [place]. Patient had negative fever, nausea, vomiting, diarrhea, abdominal pain, or headache. She was admitted mainly for oxygen support and pain control measures. Right Lower Chest Pain Score (Numeric/FACES): 8 - Related Data Allergies/Adverse Reactions: Allergies Allergy/AdvReac Type Severity Reaction Status Date / Time buspirone HCl [From BuSpar] Allergy Rash Verified 03/06/18 04:38 erythromycin base Allergy UNKNOWN Verified 03/06/18 04:38 lisinopril Allergy Cannot Verified 03/06/18 04:38 Remember Penicillins Allergy Throat Verified 03/06/18 04:38 swelling strawberry Allergy Hives Verified 03/06/18 04:38 Home Medications: Home Meds Acetaminophen [Tylenol] 650 mg PO Q4HR PRN 01/12/14 [History] Docusate Sodium [Colace] 100 mg PO BID@0800,1800 01/12/14 [History] Acetaminophen 1,000 mg PO BID 07/26/16 [History] Allopurinol [Zyloprim] 100 mg PO BID 07/26/16 [History] Iron Aspgly&PS/B12/C/Ca/FA/Suc [Niferex-150 Forte] 150 mg PO TID@08,12,17 [History] Lurasidone HCl [Latuda] 120 mg PO BEDTIME 07/26/16 [History] Multivit-Min/FA/Lycopene/Lut [Senior Tabs] 1 tab PO DAILY@1800 07/26/16 [History ] Sennosides 17.2 mg PO BID 07/26/16 [History] Propylene Glycol/Peg 400 [Systane 0.3-0.4% Eye Drops] 1 drop EYEBOTH TID PRN [History] atorvaSTATin [Lipitor] 5 mg PO BEDTIME 11/09/16 [History] Bisacodyl 10 mg RC DAILY PRN 12/05/16 [History] Magnesium Hydroxide [Milk of Magnesia] 30 ml PO BEDTIME PRN 12/05/16 [History] Aspirin [Halfprin] 81 mg PO WITHBREAKFAST 01/23/17 [History] Cholecalciferol (Vitamin D3) [Vitamin D3] 2,000 units PO DAILY 01/23/17 [History ] Levothyroxine [Synthroid] 88 mcg PO Q2D 01/23/17 [History] Pantoprazole Sodium [Protonix] 40 mg PO DAILY #30 suspdr.pkt 01/25/17 [Rx] Budesonide [Pulmicort] 0.5 mg IH BID 05/09/17 [History] Letrozole 2.5 mg PO DAILY 05/09/17 [History] Lurasidone [Latuda] 40 mg PO BEDTIME 05/09/17 [History] Albuterol/Ipratropium [DuoNeb 3.0-0.5 MG/3 ML] 1 ampule INH BID 12/13/17 [ History] Fexofenadine HCl [Esther Allergy] 180 mg PO DAILY 12/13/17 [History] Levothyroxine [Synthroid] 44 mcg PO Q2D 12/13/17 [History] Umeclidinium Taylors [Incruse Ellipta*] 1 inh INH DAILY@1200 12/13/17 [History] buPROPion HCl [Wellbutrin Xl] 300 mg PO DAILY 12/13/17 [History] Hydrocodone/Acetaminophen [Hydrocodon-Acetaminophen 5-325] 1 tab PO Q4H PRN [History] Polyethylene Glycol 3350 [MiraLAX] 17 gm PO DAILY 03/05/18 [History] guaiFENesin/Dextromethorphan [Safetussin DM] 10 ml PO Q4H PRN 03/05/18 [History] Past Medical History HEENT History: Reports: Allergic Rhinitis, Cataract, Impaired Vision Cardiovascular History: Reports: High Cholesterol, Hypertension Respiratory History: Reports: Asthma, COPD Other Respiratory History: chronic cough Gastrointestinal History: Reports: Chronic Constipation, Diverticulosis, GERD Genitourinary History: Reports: Renal Disease, Urinary Incontinence Other Genitourinary History: CKD III [employer] BRICK History: Reports: Endometriosis, Other OB/BYN History: D&C, Endometriosis biopsy 11/28. Musculoskeletal History: Reports: Arthritis, Back Pain, Chronic, Fracture Other Musculoskeletal History: chronic arm, low back and foot pain. SPONDYLOSIS. HYPERURICEMIA Neurological History: Reports: Vertigo Psychiatric History: Reports: Anxiety, Bipolar, Depression Other Psychiatric History: personality disorder. generalized anxiety disorder. 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 breast cancer - Infectious Disease History Infectious Disease History: Reports: Chicken Pox, Measles - Past Surgical History Head Surgeries/Procedures: Reports: None HEENT Surgical History: Reports: Cataract Surgery, Oral Surgery, Tonsillectomy Cardiovascular Surgical History: Reports: None Respiratory Surgical History: Reports: Other (See Below) Other Respiratory Surgeries/Procedures: right lobectomy GI Surgical History: Reports: Cholecystectomy, Colonoscopy, EGD Female Surgical History: Reports: Breast Biopsy, Section Endocrine Surgical History: Reports: None Other Neurological Surgeries/Procedures: Hx of neck surgery Musculoskeletal Surgical History: Reports: None Oncologic Surgical History: Reports: Biopsy of Breast, Lobectomy, Lumpectomy Social & Family History - Family History HEENT: Reports: None Cardiac: Reports: Heart Failure Respiratory: Reports: None GI: Reports: None : Reports: None OBGYN: Reports: None Musculoskeletal: Reports: None Neurological: Reports: None Psychiatric: Reports: None Endocrine/Metabolic: Reports: Diabetes, type II Hematologic: Reports: Anemia Immunologic: Reports: None Dermatologic: Reports: None Oncologic: Reports: Lung - Tobacco Use Smoking Status *Q: Former Smoker Used Tobacco, but Quit: Yes Month/Year Tobacco Last Used: 50 years ago Second Hand Smoke Exposure: No - Caffeine Use Caffeine Use: Reports: Coffee, Soda Other Caffeine Use: coke - Recreational Drug Use Recreational Drug Use: No H&P Review of Systems - Review of Systems: Review Of Systems: See Below General: Reports: Malaise, Weakness, Decreased Appetite, Other (Pain). Denies: Fever HEENT: Reports: No Symptoms Pulmonary: Reports: Shortness of Breath, Cough, Sputum Cardiovascular: Reports: Other (Right-sided chest wall pain). Denies: Orthopnea , Blood Pressure Problem Gastrointestinal: Reports: No Symptoms Genitourinary: Reports: No Symptoms Musculoskeletal: Reports: Other (Right-sided chest wall pain) Skin: Reports: Dryness, Bruising, Wound Psychiatric: Reports: Other (Sedation). Denies: Anxiety Neurological: Denies: Confusion Hematologic/Lymphatic: Reports: Anemia Immunologic: Reports: No Symptoms Exam - Exam Exam: See Below - Vital Signs Vital Signs: Last Vital Signs Temp 99.3 F 03/06/18 06:58 Pulse 108 H 03/06/18 08:33 Resp 20 03/06/18 06:58 BP 117/68 03/06/18 06:58 Pulse Ox 93 L 03/06/18 09:45 Weight: 163 lb 1.6 oz - Exam Quality Assessment: Supplemental Oxygen, DVT Prophylaxis. No: Urinary Catheter General: Sedated HEENT: PERRLA, Hearing Intact, Mucosa Moist & Carlos, Nares Patent, Normal Nasal Septum, Posterior Pharynx Clear, Conjunctiva Clear, EOMI, EACs Clear, TMs Clear Neck: Supple Lungs: Rhonchi. No: Wheezing Cardiovascular: Regular Rate, Regular Rhythm. No: Tachycardia GI/Abdominal Exam: Normal Bowel Sounds, Soft. No: Distended (Female) Exam: Deferred Back Exam: No: CVA Tenderness (L), CVA Tenderness (R) Extremities: No Pedal Edema Peripheral Pulses: 2+: Radial (L), Radial (R) Skin: Wound, Incision (Wound incision right posterior thoracic, no signs of redness or infection) Neurological: Normal Tone, Sensation Intact. No: Focal Deficit Neuro Extensive - Mental Status: Alert (Sedated, however easily arousable) Neuro Extensive - Motor, Sensory, Reflexes: No: Dysarthria, Total Aphasia, Motor /Sensory Deficits Psychiatric: Other (Sedated on exam however easily arousable alert and oriented once arousable) - Patient Data Lab Results Last 24 hrs: Laboratory Results - last 24 hr 03/05/18 03/05/18 03/05/18 Range/Units 12:23 12:23 12:23 WBC 13.85 H (5.00-10.00) 10^3/uL RBC 4.26 (3.80-5.50) 10^6/uL Hgb 13.5 (12.0-16.0) g/dL Hct 40.4 (37.0-47.0) % MCV 94.8 H D (82.0-92.0) fL MCH 31.7 H (27.0-31.0) pg MCHC 33.4 (32.0-36.0) g/dL RDW 13.2 (11.5-14.5) % Plt Count 361 (150-400) 10^3/uL MPV 10.0 (7.4-10.4) fL Immature Gran % (Auto) 0.2 (0.0-5.0) % Neut % (Auto) 77.6 H (50.0-70.0) % Lymph % (Auto) 11.0 L (20.0-40.0) % [place] % (Auto) 9.3 H (2.0-8.0) % Eos % (Auto) 1.6 (1.0-3.0) % Baso % (Auto) 0.3 (0.0-1.0) % Immature Gran # (Auto) 0.03 (0.00-0.50) 10^3/uL Neut # (Auto) 10.75 H (2.50-7.00) 10^3/uL Lymph # (Auto) 1.52 (1.00-4.00) 10^3/uL [place] # (Auto) 1.29 H (0.10-0.80) 10^3/uL Eos # (Auto) 0.22 (0.10-0.30) 10^3/uL Baso # (Auto) 0.04 (0.00-0.10) 10^3/uL Clumped Platelets PT 11.2 (8.9-11.4) SEC INR 1.1 (0.9-1.1) APTT 26.8 (20.8-31.2) SEC Sodium 137 (136-145) mmol/L Potassium 3.9 (3.3-5.3) mmol/L Chloride 96 L (98-115) mmol/L Carbon Dioxide 25.9 (21.0-32.0) mmol/L Anion Gap 19.0 H (5-15) mmol/L BUN 20 (6-25) mg/dL Creatinine 0.86 (0.51-1.17) mg/dL Est Cr Clr Drug Dosing 44.70 mL/min Estimated GFR (MDRD) > 60 mL/min Glucose 113 H (75 - 99) mg/dL Calcium 9.8 (8.7-10.3) mg/dL Total Bilirubin 0.4 (0.2-1.0) mg/dL AST 39 H (15-37) U/L ALT 35 (12-78) U/L Alkaline Phosphatase 136 H (46-116) IU/L Troponin I < 0.04 (0.00-0.070) ng/mL Total Protein 7.7 (6.4-8.2) g/dL Albumin 3.12 (3.00-4.80) g/dL 03/06/18 03/06/18 Range/Units 07:20 07:20 WBC 11.54 H (5.00-10.00) 10^3/uL RBC 3.98 (3.80-5.50) 10^6/uL Hgb 12.6 (12.0-16.0) g/dL Hct 38.3 (37.0-47.0) % MCV 96.2 H (82.0-92.0) fL MCH 31.7 H (27.0-31.0) pg MCHC 32.9 (32.0-36.0) g/dL RDW 13.2 (11.5-14.5) % Plt Count 274 D (150-400) 10^3/uL MPV 10.7 H (7.4-10.4) fL Immature Gran % (Auto) 0.2 (0.0-5.0) % Neut % (Auto) 70.9 H (50.0-70.0) % Lymph % (Auto) 10.7 L (20.0-40.0) % [place] % (Auto) 14.0 H (2.0-8.0) % Eos % (Auto) 3.9 H (1.0-3.0) % Baso % (Auto) 0.3 (0.0-1.0) % Immature Gran # (Auto) 0.02 (0.00-0.50) 10^3/uL Neut # (Auto) 8.19 H (2.50-7.00) 10^3/uL Lymph # (Auto) 1.23 (1.00-4.00) 10^3/uL [place] # (Auto) 1.61 H (0.10-0.80) 10^3/uL Eos # (Auto) 0.45 H (0.10-0.30) 10^3/uL Baso # (Auto) 0.04 (0.00-0.10) 10^3/uL Clumped Platelets Not seen PT (8.9-11.4) SEC INR (0.9-1.1) APTT (20.8-31.2) SEC Sodium 137 (136-145) mmol/L Potassium 3.9 (3.3-5.3) mmol/L Chloride 101 (98-115) mmol/L Carbon Dioxide 30.5 (21.0-32.0) mmol/L Anion Gap 9.4 (5-15) mmol/L BUN 15 (6-25) mg/dL Creatinine 0.91 (0.51-1.17) mg/dL Est Cr Clr Drug Dosing 42.25 mL/min Estimated GFR (MDRD) > 60 mL/min Glucose 102 H (75 - 99) mg/dL Calcium 9.1 (8.7-10.3) mg/dL Total Bilirubin (0.2-1.0) mg/dL AST (15-37) U/L ALT (12-78) U/L Alkaline Phosphatase (46-116) IU/L Troponin I (0.00-0.070) ng/mL Total Protein (6.4-8.2) g/dL Albumin (3.00-4.80) g/dL Result Diagrams: 03/07/18 09:37 03/07/18 10:10 Problem List Initiated/Reviewed/Updated: Yes Orders Last 24hrs: Active Orders 24 hr Category Date Time Status Patient Status [ADT] Routine ADT 03/05/18 14:54 Ordered Patient Status [ADT] Routine ADT 03/05/18 16:28 Ordered Oxygen Therapy [] DAILY Care 03/05/18 16:28 Active Up ad Kemi [] DAILY Care 03/05/18 16:27 Active VTE/DVT Education [RC] PER UNIT ROUTINE Care 03/05/18 14:54 Inactive VTE/DVT Education [RC] PER UNIT ROUTINE Care 03/05/18 16:28 Active Vital Signs [RC] 0300,0700,1100,1500,1900,2300 Care 03/05/18 16:28 Active Vital Signs [RC] Q4H Care 03/05/18 14:54 Inactive Regular Diet [DIET] Diet 03/05/18 Dinner Active Acetaminophen [Tylenol] Med 03/05/18 16:30 Active 650 mg PO Q6H Albuterol/Ipratropium [DuoNeb 3.0-0.5 MG/3 ML] Med 03/05/18 21:00 Active 3 ml INH BID Allopurinol [Zyloprim] Med 03/05/18 21:00 Active 100 mg PO BID Aspirin [Halfprin] Med 03/06/18 08:00 Active 81 mg PO WITHBREAKFAST Budesonide [Pulmicort] Med 03/05/18 21:00 Active 0.5 mg NEB BID Carboxymethylcellulose Sodium [Refresh Tears 0.5%] Med 03/05/18 17:11 Active 1 ml EYEBOTH TID@1000,1600,2200 PRN Cholecalciferol (Vitamin D3) [Vitamin D3] Med 03/06/18 09:00 Active 2,000 units PO DAILY Docusate Sodium [Colace] Med 03/05/18 18:00 Active 100 mg PO BID@0800,1800 Docusate Sodium/Sennosides [Senna Plus] Med 03/05/18 21:00 Active 2 tab PO BID FA/Lycopene/Lut/MV,Ca,Iron,Min [Centrum] Med 03/06/18 09:00 Active 1 tab PO DAILY Iron Polysaccharides Complex [Ferrex 150] Med 03/05/18 21:00 Active 150 mg PO TID Letrozole [Femara] Med 03/06/18 09:00 Active 2.5 mg PO DAILY Levothyroxine [Synthroid] Med 03/06/18 07:00 Active 44 mcg PO Q2D@0700 Levothyroxine [Synthroid] Med 03/07/18 07:00 Active 88 mcg PO Q2D@0700 Loratadine [Claritin] Med 03/07/18 09:00 Active 10 mg PO DAILY Lurasidone HCl [Latuda] Med 03/05/18 21:00 Active 120 mg PO BEDTIME Lurasidone [Latuda] Med 03/05/18 21:00 Active 40 mg PO BEDTIME Omeprazole Med 03/06/18 09:00 Active 20 mg PO DAILY Polyethylene Glycol 3350 [MiraLAX] Med 03/06/18 09:00 Active 17 gm PO DAILY Sodium Chloride 0.9% [Normal Saline] 1,000 ml Med 03/05/18 16:30 Active IV ASDIRECTED Sodium Chloride 0.9% [Saline Flush] Med 03/05/18 13:54 Active 10 ml FLUSH Q8HR PRN Umeclidinium Taylors [Incruse Ellipta] Med 03/06/18 12:00 Active 0 mcg IH DAILY@1200 atorvaSTATin [Lipitor] Med 03/05/18 21:00 Active 5 mg PO BEDTIME buPROPion [Wellbutrin XL] Med 03/06/18 09:00 Active 300 mg PO DAILY oxyCODONE Med 03/05/18 16:22 Active 5 mg PO Q4H PRN Peripheral IV Insertion Adult [OM.PC] Routine Oth 03/05/18 13:54 Ordered Resuscitation Status Routine Resus Stat 03/05/18 14:54 Ordered Medication Orders Acetaminophen (Tylenol) 650 mg PO Q6H [facility] Last Admin: 03/06/18 05:13 Dose: Not Given Admin: 03/05/18 21:30 Dose: 650 mg Admin: 03/05/18 18:16 Dose: 650 mg Albuterol/Ipratropium (Duoneb 3.0-0.5 Mg/3 Ml) 3 ml INH BID [facility] Last Admin: 03/06/18 08:33 Dose: 3 ml Admin: 03/05/18 20:46 Dose: 3 ml Allopurinol (Zyloprim) 100 mg PO BID [facility] Last Admin: 03/06/18 08:10 Dose: 100 mg Admin: 03/05/18 20:46 Dose: 100 mg Artificial Tears (Refresh Tears 0.5%) 1 ml EYEBOTH TID@1000,1600,2200 PRN PRN Reason: Dry Eyes Aspirin (Halfprin) 81 mg PO WITHBREAKFAST [facility] Last Admin: 03/06/18 08:10 Dose: 81 mg Atorvastatin Calcium (Lipitor) 5 mg PO BEDTIME [facility] Last Admin: 03/05/18 20:45 Dose: 5 mg Budesonide (Pulmicort) 0.5 mg NEB BID [facility] Last Admin: 03/05/18 21:35 Dose: Not Given Bupropion HCl (Wellbutrin Xl) 300 mg PO DAILY [facility] Cholecalciferol (Vitamin D3) 2,000 units PO DAILY [facility] Last Admin: 03/06/18 08:10 Dose: 2,000 units Docusate Sodium (Colace) 100 mg PO BID@0800,1800 [facility] Last Admin: 03/06/18 08:10 Dose: 100 mg Admin: 03/05/18 18:28 Dose: 100 mg Sodium Chloride (Normal Saline) 1,000 mls @ 50 mls/hr IV ASDIRECTED [facility] Last Admin: 03/05/18 18:28 Dose: 50 mls/hr Letrozole (Femara) 2.5 mg PO DAILY [facility] Last Admin: 03/06/18 08:27 Dose: 2.5 mg Levothyroxine Sodium (Synthroid) 44 mcg PO Q2D@0700 [facility] Last Admin: 03/06/18 06:23 Dose: 44 mcg Levothyroxine Sodium (Synthroid) 88 mcg PO Q2D@0700 [facility] Loratadine (Claritin) 10 mg PO DAILY [facility] Multivitamins/Minerals (Centrum) 1 tab PO DAILY [facility] Last Admin: 03/06/18 08:10 Dose: 1 tab Lurasidone Hcl [ Latuda] 120 Mg * Patient Own* 120 mg PO BEDTIME [facility] Last Admin: 03/05/18 21:26 Dose: 120 mg Lurasidone [Latuda] (40 Mg *Patient Own*) 40 mg PO BEDTIME [facility] Last Admin: 03/05/18 21:26 Dose: 40 mg Omeprazole (Omeprazole) 20 mg PO DAILY [facility] Last Admin: 03/06/18 08:10 Dose: 20 mg Oxycodone HCl (Oxycodone) 5 mg PO Q4H PRN PRN Reason: Pain (severe 7-10) Last Admin: 03/06/18 08:08 Dose: 5 mg Admin: 03/06/18 02:41 Dose: 5 mg Admin: 03/05/18 20:45 Dose: 5 mg Admin: 03/05/18 16:45 Dose: 5 mg Polyethylene Glycol (Miralax) 17 gm PO DAILY [facility] Polysaccharide Iron Complex (Ferrex 150) 150 mg PO TID [facility] Senna/Docusate Sodium (Senna Plus) 2 tab PO BID [facility] Sodium Chloride (Saline Flush) 10 ml FLUSH Q8HR PRN PRN Reason: keep vein open Umeclidinium Taylors (Incruse Ellipta) 0 mcg IH DAILY@1200 [facility] Assessment/Plan Comment:: History of present illness 73-year-old patient who is a resident of a long-term care center and is status post right upper lobe lobectomy [facility], presented to the ED via EMS secondary to chest pain and decreased oxygen saturation. Patient underwent right upper lobectomy resection secondary to cancer on Sunday, March 01. At that time, a chest tube was placed and chest tube was discontinued March 04. Patient was discharged from [facility] back to [facility] [place] [employer]. Patient had negative fever, nausea, vomiting, diarrhea, abdominal pain, or headache. She was admitted mainly for oxygen support and pain control measures. Postoperative hospital course Patient did well, met all goals, postoperatively she had a chest tube that was placed to suction, and transitioned to water seal and removed without difficulty on POD#2. Patient was voiding spontaneously however did have a catheter that was removed and she also had normal bowel function. She did require oxygen supplementation of 1-3 LPM NC however she was ambulating without assistance prior to discharge. He was dynamically stable, Last CXR revealed no pneumothorax and right lung well expanded on 03/04/18. She was released with discharge instructions and will start rehabilitation in 1-2 weeks. Primary hospital problems Status post lobectomy, reduced pulmonary excursion with hypoxia, hypoventilatory Pain management, see plan below Opioid therapy Secondary stable problems T2 DM--diet controlled. Accu-Checks COPD, stable on Incruse Ellipta, Duo nebs MARYCRUZ, on iron supplementation Hypothyroidism thyroid replacement Bipolar disorder stable on Wellbutrin as well as Latuda. Hard of hearing Previous smoker Multiple allergies DVT prophylaxis, Lovenox GI stress, PPI Delirium prophylaxis, will consider depending on opioid needs Overall plan, pulmonary toileting, to chair today, reduce narcotics as to prevent hypoventilatory sequela, ICS, Lidoderm patch, continue scheduled Tylenol , Naloxegol Oxalate to prevent OIC constipation, reduce iron, monitor oxygen needs and titrate accordingly. Discussion with patient and staff regarding pain management. Tenuous hydrocodone however titrate pain medication according to level of function. Carefully monitor respiratory rate and vital signs. Delirium prophylaxis
[2018-03-06] MEDS: UMECLIDINIUM BROMIDE 62.5 MCG IH SCH (12:14)
[2018-03-06] MEDS: Naloxegol Oxalate 25 MG Tab PO SCH (16:09)
[2018-03-06] MEDS: Lidocaine 5% 700 MG Patch TOP SCH (16:09)
[2018-03-06] MEDS: Iron Polysaccharides Complex 150 MG Cap PO SCH (16:11)
[2018-03-06] MEDS: Enoxaparin 40 MG/0.4 ML Syringe SUBCUT SCH (16:12)
[2018-03-06] MEDS: Polyethylene Glycol 3350 Powder 238 GM Bot PO SCH (19:43)
[2018-03-06] MEDS: LURASIDONE 40 MG PO SCH (20:05)
[2018-03-06] MEDS: atorvaSTATin 10 MG Tab PO SCH (20:05)
[2018-03-06] MEDS: LURASIDONE HCL 120 MG PO SCH (20:06)
[2018-03-07] MEDS: oxyCODONE 5 MG Tab PO PRN ×3 (01:36→20:23)
[2018-03-07] MEDS: Acetaminophen 325 MG Tab PO SCH ×4 (05:05→22:15)
[2018-03-07] MEDS: Iron Polysaccharides Complex 150 MG Cap PO SCH ×2 (06:06→09:41)
[2018-03-07] MEDS: Levothyroxine 88 MCG Tab PO SCH (06:40)
[2018-03-07] MEDS: Omeprazole 20 MG Cap.CR PO SCH (08:00)
[2018-03-07] MEDS: Allopurinol 100 MG Tab PO SCH ×2 (08:00→21:47)
[2018-03-07] MEDS: Docusate Sodium 100 MG Cap PO SCH ×2 (08:00→17:10)
[2018-03-07] MEDS: Cholecalciferol (Vitamin D3) 1,000 Unit Tab PO SCH (08:00)
[2018-03-07] MEDS: Loratadine 10 MG Tab PO SCH (08:00)
[2018-03-07] MEDS: Multivitamins with Minerals/Iron/Folic Acid/Lycopene Tab PO SCH (08:00)
[2018-03-07] MEDS: buPROPion 300 MG Tab.ER PO SCH (08:00)
[2018-03-07] MEDS: Naloxegol Oxalate 25 MG Tab PO SCH (08:01)
[2018-03-07] MEDS: LETROZOLE 2.5 MG PO SCH (08:01)
[2018-03-07] MEDS: Aspirin 81 MG Tab.EC PO SCH (08:01)
[2018-03-07] MEDS: Polyethylene Glycol 3350 Powder 238 GM Bot PO SCH (08:02)
[2018-03-07] MEDS: Albuterol/Ipratropium 3.0-0.5 MG/3 ML Neb Soln INH SCH ×2 (08:36→21:48)
[2018-03-07] MEDS: Budesonide 0.5 MG/2 ML Neb Susp NEB SCH ×2 (09:41→21:48)
--- NOTE | 2018-03-07 09:49 | PCM.PN ---
- General Info Date of Service: 03/07/18 Functional Status: Reports: Pain Controlled, Tolerating Diet, Incentive Spirometry. Denies: Ambulating - Review of Systems General: Reports: Weakness. Denies: Fever HEENT: Reports: No Symptoms Pulmonary: Reports: Pleuritic Chest Pain (Much improved and pain control), Cough , Sputum (Slightly bloody sputum scant upon deep coughing). Denies: Wheezing Cardiovascular: Reports: No Symptoms Gastrointestinal: Reports: No Symptoms Genitourinary: Reports: No Symptoms Musculoskeletal: Reports: No Symptoms Skin: Reports: Bruising Neurological: Denies: Confusion Psychiatric: Denies: Confusion, Anxiety, Agitation - Patient Data Vitals - Most Recent: Last Vital Signs Temp 97.6 F 03/07/18 06:51 Pulse 92 03/07/18 08:36 Resp 20 03/07/18 06:51 BP 94/57 L 03/07/18 06:51 Pulse Ox 93 L 03/07/18 08:36 Weight - Most Recent: 163 lb 1.6 oz I&O - Last 24 Hours: Intake & Output 03/06/18 03/07/18 03/07/18 22:59 06:59 14:59 Intake Total 1747 609 Output Total 600 1200 Balance 1147 -591 Med Orders - Current: Current Medications Acetaminophen (Tylenol) 650 mg PO Q6H [facility] Last Admin: 03/07/18 05:05 Dose: 650 mg Albuterol/Ipratropium (Duoneb 3.0-0.5 Mg/3 Ml) 3 ml INH BID [facility] Last Admin: 03/07/18 08:36 Dose: 3 ml Allopurinol (Zyloprim) 100 mg PO BID [facility] Last Admin: 03/07/18 08:00 Dose: 100 mg Artificial Tears (Refresh Tears 0.5%) 1 ml EYEBOTH TID@1000,1600,2200 PRN PRN Reason: Dry Eyes Aspirin (Halfprin) 81 mg PO WITHBREAKFAST [facility] Last Admin: 03/07/18 08:01 Dose: 81 mg Atorvastatin Calcium (Lipitor) 5 mg PO BEDTIME [facility] Last Admin: 03/06/18 20:05 Dose: 5 mg Budesonide (Pulmicort) 0.5 mg NEB BID [facility] Last Admin: 03/06/18 20:51 Dose: Not Given Bupropion HCl (Wellbutrin Xl) 300 mg PO DAILY [facility] Last Admin: 03/07/18 08:00 Dose: 300 mg Cholecalciferol (Vitamin D3) 2,000 units PO DAILY [facility] Last Admin: 03/07/18 08:00 Dose: 2,000 units Docusate Sodium (Colace) 100 mg PO BID@0800,1800 [facility] Last Admin: 03/07/18 08:00 Dose: 100 mg Enoxaparin Sodium (Lovenox) 40 mg SUBCUT Q24H [facility] Last Admin: 03/06/18 16:12 Dose: 40 mg Sodium Chloride (Normal Saline) 1,000 mls @ 50 mls/hr IV ASDIRECTED [facility] Last Admin: 03/06/18 11:54 Dose: 50 mls/hr Letrozole (Femara) 2.5 mg PO DAILY [facility] Last Admin: 03/07/18 08:01 Dose: 2.5 mg Levothyroxine Sodium (Synthroid) 44 mcg PO Q2D@0700 [facility] Last Admin: 03/06/18 06:23 Dose: 44 mcg Levothyroxine Sodium (Synthroid) 88 mcg PO Q2D@0700 [facility] Last Admin: 03/07/18 06:40 Dose: 88 mcg Lidocaine (Lidoderm 5%) 700 mg TOP Q24H [facility] Last Admin: 03/06/18 16:09 Dose: 700 mg Loratadine (Claritin) 10 mg PO DAILY [facility] Last Admin: 03/07/18 08:00 Dose: 10 mg Multivitamins/Minerals (Centrum) 1 tab PO DAILY [facility] Last Admin: 03/07/18 08:00 Dose: 1 tab Naloxegol (Movantik) 25 mg PO DAILY [facility] Last Admin: 03/07/18 08:01 Dose: 25 mg Lurasidone Hcl [ Latuda] 120 Mg * Patient Own* 120 mg PO BEDTIME [facility] Last Admin: 03/06/18 20:06 Dose: 120 mg Lurasidone [Latuda] (40 Mg *Patient Own*) 40 mg PO BEDTIME [facility] Last Admin: 03/06/18 20:05 Dose: 40 mg Omeprazole (Omeprazole) 20 mg PO DAILY [facility] Last Admin: 03/07/18 08:00 Dose: 20 mg Oxycodone HCl (Oxycodone) 5 mg PO Q4H PRN PRN Reason: Pain (severe 7-10) Last Admin: 03/07/18 01:36 Dose: 5 mg Polyethylene Glycol (Miralax) 17 gm PO DAILY [facility] Last Admin: 03/07/18 08:02 Dose: Not Given Polysaccharide Iron Complex (Ferrex 150) 150 mg PO Q48H [facility] Last Admin: 03/06/18 16:11 Dose: 150 mg Senna/Docusate Sodium (Senna Plus) 2 tab PO BID [facility] Last Admin: 03/07/18 08:01 Dose: 2 tab Sodium Chloride (Saline Flush) 10 ml FLUSH Q8HR PRN PRN Reason: keep vein open Umeclidinium [place] (Incruse Ellipta) 0 mcg IH DAILY@1200 [facility] Last Admin: 03/06/18 12:14 Dose: 1 puff Discontinued Medications Fentanyl (Sublimaze) 50 mcg IVPUSH ONETIME ONE Stop: 03/05/18 12:25 Last Admin: 03/05/18 12:30 Dose: 50 mcg Fentanyl (Sublimaze) 50 mcg IVPUSH ONETIME ONE Stop: 03/05/18 13:05 Last Admin: 03/05/18 13:09 Dose: 50 mcg Fentanyl (Sublimaze) 25 mcg IVPUSH STAT ONE Stop: 03/06/18 04:49 Last Admin: 03/06/18 05:07 Dose: 25 mcg Fexofenadine HCl (Esther) 180 mg PO DAILY [facility] Last Admin: 03/07/18 06:06 Dose: Not Given Ondansetron HCl (Zofran) 4 mg IVPUSH ONETIME ONE Stop: 03/05/18 12:25 Last Admin: 03/05/18 12:30 Dose: 4 mg Oxycodone HCl (Oxycodone) 5 mg PO ONETIME ONE Stop: 03/05/18 23:05 Last Admin: 03/06/18 00:41 Dose: 5 mg Oxycodone HCl (Oxycodone) 5 mg PO STAT ONE Stop: 03/06/18 04:31 Last Admin: 03/06/18 04:51 Dose: Not Given Polysaccharide Iron Complex (Ferrex 150) 150 mg PO TID [facility] Last Admin: 03/07/18 06:06 Dose: Not Given - Exam Quality Assessment: Supplemental Oxygen General: Alert, Oriented, Cooperative, No Acute Distress Neck: No JVD Lungs: Normal Respiratory Effort, Rhonchi. No: Crackles, Rales, Wheezing Cardiovascular: Tachycardia GI/Abdominal Exam: Soft, No Distention, No Mass. No: Distended (Female) Exam: Deferred Back Exam: No: CVA Tenderness (L), CVA Tenderness (R) Extremities: No Pedal Edema Peripheral Pulses: 2+: Radial (L), Radial (R) Wound/Incisions: Healing Well, Other (Healing scars surgical scars right thoracic posterior) Neurological: Normal Tone Psy/Mental Status: Alert, Normal Affect, Normal Mood - Problem List Review Problem List Initiated/Reviewed/Updated: Yes - My Orders Last 24 Hours: My Active Orders 03/06/18 11:45 Lidocaine 5% [Lidoderm 5%] 700 mg TOP Q24H Naloxegol Oxalate [Movantik] 25 mg PO DAILY 03/06/18 11:58 RT Incentive Spirometry [RC] Q1HWA 03/06/18 12:00 Enoxaparin [Lovenox] 40 mg SUBCUT Q24H Iron Polysaccharides Complex [Ferrex 150] 150 mg PO Q48H - Plan Plan:: History of present illness 73-year-old patient who is a resident of a long-term care center and is status post right upper lobe lobectomy [facility], presented to the ED via EMS secondary to chest pain and decreased oxygen saturation. Patient underwent right upper lobectomy resection secondary to cancer on Sunday, March 01. At that time, a chest tube was placed and chest tube was discontinued March 04. Patient was discharged from [facility] back to long-term care [place]. Patient had negative fever, nausea, vomiting, diarrhea, abdominal pain, or headache. She was admitted mainly for oxygen support and pain control measures. Postoperative hospital course Patient did well, met all goals, postoperatively she had a chest tube that was placed to suction, and transitioned to water seal and removed without difficulty on POD#2. Patient was voiding spontaneously however did have a catheter that was removed and she also had normal bowel function. She did require oxygen supplementation of 1-3 LPM NC however she was ambulating without assistance prior to discharge. He was dynamically stable, Last CXR revealed no pneumothorax and right lung well expanded on 03/04/18. She was released with discharge instructions and will start rehabilitation in 1-2 weeks. Update today, oxygen has titrated down to 1 L, much better pain control (~21 MME past 24 hours) patient much more alert, non-sedated, nurses report is slept all night, requiring much less narcotics, sitting up in bed answering all questions, feels better less pain, less cough, gentle fluids yesterday patient now euvolemic but no tachycardia BP improved, output improved, taking adequate orals now, Primary hospital problems --Dehydration, resolved, yesterday she had insensible loss with tachycardic, Intake>output, low BP, it appeared dry however today blood pressure improved, euvolemic, normal heart rhythm, adequate output, taking adequate orals. Saline lock IV. --Status post lobectomy, improved pulmonary excursion, --Pain management, using minimal narcotics, Lidoderm patch helpful, scheduled Tylenol, Secondary stable problems T2 DM--diet controlled. Accu-Cheks COPD, stable on Incruse Ellipta, Duo nebs, O2 support to keep sats 92% MARYCRUZ, on iron supplementation, reduced and changed to every 48 Hypothyroidism, thyroid replacement Bipolar disorder stable on Wellbutrin as well as Latuda. Hard of hearing Previous smoker Multiple allergies DVT prophylaxis, Lovenox GI stress, PPI Delirium prophylaxis, will consider rozerem however not to combine with narcotics. Overall plan, saline lock IV, ongoing pulmonary toileting, down to 1 L per nasal cannula oxygen now, good oxygenation, up to chair, ICS, Lidoderm patch, continue scheduled Tylenol, Naloxegol Oxalate to prevent OIC constipation, requiring much less narcotics, (~21 MME past 24 hours)--titrated down to level of function. Carefully monitor respiratory rate and vital signs. Patient is progressing well anticipate discharge back to long-term care March 09. Long-term care facility has been made aware.
[2018-03-07] MEDS ORDERED: Sodium Chloride 0.9% 200 ML IV ONE (09:50)
[2018-03-07 10:37] LABS: ANION GAP 11.9 mmol/L (5-15)
[2018-03-07] MEDS ORDERED: Bisacodyl 10 MG Supp RECTAL PRN (11:14)
[2018-03-07] MEDS: Lidocaine 5% 700 MG Patch TOP SCH (11:26)
[2018-03-07] MEDS: Sodium Chloride 0.9% 1,000 ML IV SCH (11:26)
[2018-03-07] MEDS: Enoxaparin 40 MG/0.4 ML Syringe SUBCUT SCH (11:26)
[2018-03-07] MEDS: UMECLIDINIUM BROMIDE 62.5 MCG IH SCH (11:45)
[2018-03-07] MEDS: atorvaSTATin 10 MG Tab PO SCH (21:47)
[2018-03-07] MEDS: LURASIDONE HCL 120 MG PO SCH (21:49)
[2018-03-07] MEDS: LURASIDONE 40 MG PO SCH (21:50)
[2018-03-08] MEDS: Sodium Chloride 0.9% 1,000 ML IV SCH (01:44)
[2018-03-08] MEDS: Acetaminophen 325 MG Tab PO SCH ×3 (05:16→16:58)
[2018-03-08] MEDS: Levothyroxine 88 MCG Tab PO SCH (06:29)
[2018-03-08] MEDS: Omeprazole 20 MG Cap.CR PO SCH (08:06)
[2018-03-08] MEDS: Polyethylene Glycol 3350 Powder 17 GM Packet PO SCH (08:06)
[2018-03-08] MEDS: Multivitamins with Minerals/Iron/Folic Acid/Lycopene Tab PO SCH (08:07)
[2018-03-08] MEDS: Docusate Sodium 100 MG Cap PO SCH ×2 (08:07→16:59)
[2018-03-08] MEDS: Aspirin 81 MG Tab.EC PO SCH (08:07)
[2018-03-08] MEDS: Naloxegol Oxalate 25 MG Tab PO SCH (08:07)
[2018-03-08] MEDS: Allopurinol 100 MG Tab PO SCH ×2 (08:07→21:05)
[2018-03-08] MEDS: Cholecalciferol (Vitamin D3) 1,000 Unit Tab PO SCH (08:07)
[2018-03-08] MEDS: buPROPion 300 MG Tab.ER PO SCH (08:07)
[2018-03-08] MEDS: Loratadine 10 MG Tab PO SCH (08:07)
[2018-03-08] MEDS: LETROZOLE 2.5 MG PO SCH (08:07)
[2018-03-08] MEDS: Albuterol/Ipratropium 3.0-0.5 MG/3 ML Neb Soln INH SCH ×2 (08:54→21:10)
[2018-03-08] MEDS: oxyCODONE 5 MG Tab PO PRN ×3 (09:17→19:37)
[2018-03-08] MEDS: Budesonide 0.5 MG/2 ML Neb Susp NEB SCH ×2 (09:51→20:59)
[2018-03-08] MEDS ORDERED: Sodium Chloride 0.9% 10 ML Syringe FLUSH PRN (10:07)
[2018-03-08] MEDS: Lidocaine 5% 700 MG Patch TOP SCH (11:00)
[2018-03-08] MEDS: Enoxaparin 40 MG/0.4 ML Syringe SUBCUT SCH (11:00)
[2018-03-08] MEDS: Iron Polysaccharides Complex 150 MG Cap PO SCH (11:00)
[2018-03-08] MEDS: UMECLIDINIUM BROMIDE 62.5 MCG IH SCH (11:03)
[2018-03-08] MEDS: atorvaSTATin 10 MG Tab PO SCH (21:04)
[2018-03-08] MEDS: LURASIDONE HCL 120 MG PO SCH (21:06)
[2018-03-08] MEDS: LURASIDONE 40 MG PO SCH (21:06)
[2018-03-09] MEDS: Acetaminophen 325 MG Tab PO SCH ×2 (00:09→05:13)
[2018-03-09] MEDS: oxyCODONE 5 MG Tab PO PRN ×2 (00:10→11:23)
[2018-03-09] MEDS: Levothyroxine 88 MCG Tab PO SCH (06:33)
[2018-03-09] MEDS: Omeprazole 20 MG Cap.CR PO SCH (08:15)
[2018-03-09] MEDS: LETROZOLE 2.5 MG PO SCH (08:15)
[2018-03-09] MEDS: Cholecalciferol (Vitamin D3) 1,000 Unit Tab PO SCH (08:16)
[2018-03-09] MEDS: Allopurinol 100 MG Tab PO SCH (08:16)
[2018-03-09] MEDS: Multivitamins with Minerals/Iron/Folic Acid/Lycopene Tab PO SCH (08:16)
[2018-03-09] MEDS: Naloxegol Oxalate 25 MG Tab PO SCH (08:16)
[2018-03-09] MEDS: Loratadine 10 MG Tab PO SCH (08:16)
[2018-03-09] MEDS: Aspirin 81 MG Tab.EC PO SCH (08:17)
[2018-03-09] MEDS: Docusate Sodium 100 MG Cap PO SCH (08:17)
[2018-03-09] MEDS: Albuterol/Ipratropium 3.0-0.5 MG/3 ML Neb Soln INH SCH (08:18)
[2018-03-09] MEDS: Polyethylene Glycol 3350 Powder 17 GM Packet PO SCH (08:18)
[2018-03-09] MEDS: Budesonide 0.5 MG/2 ML Neb Susp NEB SCH (08:38)
[2018-03-09] MEDS ORDERED: buPROPion 150 MG Tab.ER PO SCH (09:00)
[2018-03-09] MEDS ORDERED: Acetaminophen/HYDROcodone 325-5 MG Tab PO PRN (10:06)
[2018-03-09] MEDS ORDERED: Acetaminophen 325 MG Tab PO PRN (10:06)
[2018-03-09] MEDS ORDERED: Bisacodyl 10 MG Supp RECTAL PRN (10:06)
[2018-03-09] MEDS ORDERED: guaiFENesin/Dextromethorphan 100-10 MG/5 ML Soln 5 ML Cup PO PRN (10:06)
[2018-03-09] MEDS ORDERED: Magnesium Hydroxide 400 MG/5 ML Susp 30 ML Cup PO PRN (10:06)
[2018-03-09] MEDS: Lidocaine 5% 700 MG Patch TOP SCH (11:23)
[2018-03-09] MEDS: Enoxaparin 40 MG/0.4 ML Syringe SUBCUT SCH (11:24)
[2018-03-09 11:26] VITALS: BP 131/81
--- NOTE | 2018-03-09 12:48 | DISCH ---
DISCHARGE DIAGNOSIS: Hypoxia related to status post lobectomy. SECONDARY DIAGNOSES: 1. Type 2 diabetes. 2. Chronic obstructive pulmonary disease. 3. MARYCRUZ. 4. Hypothyroidism. 5. Bipolar disorder. 6. Hard of hearing. 7. History of smoking. 8. Multiple allergies. BRIEF HISTORY AND HOSPITAL COURSE: This is a 73-year-old patient, who was a resident of a long-term care facility. She was discharged to the facility status post right upper lobe lobectomy. This was completed in [place]. Post discharge, she developed hypoxia and chest discomfort. She was seen in the ED and admitted for inpatient services. During her hospital course in [place], she did have a chest tube placed. This was discontinued on 03/04/2018, prior to her admission to the long-term care facility. During her hospital course, her chest discomfort resolved. She had been placed on oxygen. This improved and her oxygen were discontinued. She has been O2 free since yesterday with stable O2 saturations. Her pain has been managed with scheduled Tylenol, p.r.n. Tylenol, and Lidoderm patch. She is requiring very few narcotics for pain control. She developed no further complications during her hospital course and with improvement in her status, deemed ready for discharge to long-term care. CURRENT MEDICATIONS: 1. Latuda 40 mg at bedtime. 2. Omeprazole 20 mg daily. 3. Oxycodone 5 mg q.4 hours p.r.n. 4. MiraLAX 17 g daily. 5. Ferrous sulfate 150 daily. 6. Senna Plus 2 tablets b.i.d. 7. Incruse Ellipta 1 puff daily. 8. DuoNeb b.i.d. 9. Zyloprim 100 b.i.d. 10.Artificial Tears p.r.n. 11.Lipitor 5 mg daily. 12.Pulmicort b.i.d. 13.Wellbutrin XL 300 daily. 14.Vitamin D 2000 daily. 15.Colace 100 mg daily. 16.Synthroid 44 mcg daily. 17.Claritin 10 mg daily. 18.Lidoderm patch 5% q.24 hours. 19.Centrum daily. PHYSICAL EXAMINATION: VITAL SIGNS: Today are 108/68, 97.3, 86, and 20. Her O2 saturation is 94%. GENERAL: She is alert. She responds to questions appropriately. She appears to be in no acute distress. HEENT: Head is normocephalic. Conjunctivae are clear. There is no nasal drainage. RESPIRATORY: Lung sounds are clear to auscultation without wheezes, rhonchi, or rales. CARDIOVASCULAR: Heart rate and rhythm are regular. S1, S2 at 86 beats per minute. GI/ABDOMEN: Soft, nontender. Bowel sounds are present. EXTREMITIES: Noted no lower extremity edema. SKIN: Warm and dry. Postsurgical site on the right thoracic area is healing well without signs or symptoms of infection. DISPOSITION: The patient will be discharged back to the long-term care facility. Discharge instructions were provided per discharge packet. She has been instructed to follow up with her primary care provider in 1 week. Long- term care facility will notify if any questions or concerns. /[id number]/MODL MTDD
[2018-03-09] MEDS ORDERED: Acetaminophen 500 MG Tab PO SCH (21:00)
== END 2018-03-09 11:45 | DRG 948 ==
LOC: KA.ED 12:05 → KA.MS 14:54
PROVIDERS: ADMIT Physician Assistant Surgical; ATTEND Family Medicine
DX: R07.9 Chest pain, unspecified (principal); G89.18 Other acute postprocedural pain; R09.02 Hypoxemia; D50.9 Iron deficiency anemia, unspecified; R06.02 Shortness of breath; E86.0 Dehydration; E78.00 Pure hypercholesterolemia, unspecified; J44.9 Chronic obstructive pulmonary disease, unspecified; K59.09 Other constipation; K57.90 Diverticulosis of intestine, part unspecified, without perforation or abscess without bleeding; K21.9 Gastro-esophageal reflux disease without esophagitis; R32 Unspecified urinary incontinence; M19.90 Unspecified osteoarthritis, unspecified site; G89.29 Other chronic pain; M54.5 Low back pain; M47.9 Spondylosis, unspecified; E79.0 Hyperuricemia without signs of inflammatory arthritis and tophaceous disease; R42 Dizziness and giddiness; F31.9 Bipolar disorder, unspecified; F41.1 Generalized anxiety disorder; I12.9 Hypertensive chronic kidney disease with stage 1 through stage 4 chronic kidney disease, or unspecified chronic kidney disease; N18.3 Chronic kidney disease, stage 3 (moderate); F60.9 Personality disorder, unspecified; E11.22 Type 2 diabetes mellitus with diabetic chronic kidney disease; D64.9 Anemia, unspecified; E61.1 Iron deficiency; H54.7 Unspecified visual loss; E03.9 Hypothyroidism, unspecified; Z85.3 Personal history of malignant neoplasm of breast; Z90.2 Acquired absence of lung [part of]; Z88.1 Allergy status to other antibiotic agents; Z88.0 Allergy status to penicillin; Z85.118 Personal history of other malignant neoplasm of bronchus and lung; Z88.8 Allergy status to other drugs, medicaments and biological substances; Z91.018 Allergy to other foods; Z79.899 Other long term (current) drug therapy; Z79.82 Long term (current) use of aspirin; Z85.42 Personal history of malignant neoplasm of other parts of uterus; Z87.891 Personal history of nicotine dependence; Z98.891 History of uterine scar from previous surgery
CPT/HCPCS: 36415; 71250; 80048; 80053; 84484; 85025; 85610; 85730; 93005; 94640; 96374; 96375; 99284; 99285; A9270-GY; J1650; J2405; J3010; J7030; J7620-GY

== ENCOUNTER 2018-11-09 16:31 | Observation (INO) | payer MEDICARE, MEDICAID ==
[2018-11-09] MEDS ORDERED: Sodium Chloride 0.9% 10 ML Syringe FLUSH PRN (16:48)
[2018-11-09] MEDS ORDERED: Nitroglycerin 2% Oint 1 GM UD Packet TOP ONE (16:54)
[2018-11-09] MEDS ORDERED: Aspirin 81 MG Tab.Chew PO ONE (16:54)
--- NOTE | 2018-11-09 17:05 | EDM.PDOC ---
ED HPI GENERAL MEDICAL PROBLEM - General Chief Complaint: General Stated Complaint: CHEST PAIN Time Seen by Provider: 11/09/18 16:35 Source of Information: Reports: Patient History Limitations: Reports: No Limitations - History of Present Illness INITIAL COMMENTS - FREE TEXT/NARRATIVE: 73 YO WF presents to ER complaining of left sided chest pain with radiation to left shoulder and arm. Pt reports pain is intermittent and recurring since yesterday. Pt reports mild SOB and associated nausea. Pt reports pain became more frequent today prompting ER evaluation. Pt denies any recent illness, no fever/chills, no diaphoresis. Onset Date: 11/08/18 Location: Reports: Chest Quality: Reports: Ache Severity: Mild Improves with: Reports: None Worsens with: Reports: None Associated Symptoms: Reports: Chest Pain, Malaise, Nausea/Vomiting, Shortness of Breath. Denies: Cough, cough w sputum, Diaphoresis, Fever/Chills, Syncope, Weakness Left Upper Epigastric Pain Score (Numeric/FACES): 6 - Related Data Allergies Allergy/AdvReac Type Severity Reaction Status Date / Time buspirone HCl [From BuSpar] Allergy Rash Verified 11/09/18 16:55 erythromycin base Allergy UNKNOWN Verified 11/09/18 16:55 lisinopril Allergy Cannot Verified 11/09/18 16:55 Remember Penicillins Allergy Throat Verified 11/09/18 16:55 swelling strawberry Allergy Hives Verified 11/09/18 16:55 Home Meds: Home Meds Acetaminophen [Tylenol] 650 mg PO Q4HR PRN 01/12/14 [History] Docusate Sodium [Colace] 100 mg PO BID@0800,1800 01/12/14 [History] Acetaminophen 1,000 mg PO BID 07/26/16 [History] Allopurinol [Zyloprim] 100 mg PO BID 07/26/16 [History] Iron Aspgly&PS/B12/C/Ca/FA/Suc [Niferex-150 Forte] 150 mg PO TID@08,, [History] Lurasidone HCl [Latuda] 120 mg PO BEDTIME 07/26/16 [History] Multivit-Min/FA/Lycopene/Lut [Senior Tabs] 1 tab PO DAILY@1800 07/26/16 [History ] Sennosides 17.2 mg PO BID 07/26/16 [History] Propylene Glycol/Peg 400 [Systane 0.3-0.4% Eye Drops] 1 drop EYEBOTH TID PRN [History] atorvaSTATin [Lipitor] 5 mg PO BEDTIME 11/09/16 [History] Bisacodyl 10 mg RC DAILY PRN 12/05/16 [History] Magnesium Hydroxide [Milk of Magnesia] 30 ml PO BEDTIME PRN 12/05/16 [History] Aspirin [Halfprin] 81 mg PO WITHBREAKFAST 01/23/17 [History] Cholecalciferol (Vitamin D3) [Vitamin D3] 2,000 units PO DAILY 01/23/17 [History ] Levothyroxine [Synthroid] 88 mcg PO Q2D 01/23/17 [History] Pantoprazole Sodium [Protonix] 40 mg PO DAILY #30 suspdr.pkt 01/25/17 [Rx] Budesonide [Pulmicort] 0.5 mg IH BID 05/09/17 [History] Letrozole 2.5 mg PO DAILY 05/09/17 [History] Lurasidone [Latuda] 40 mg PO BEDTIME 05/09/17 [History] Albuterol/Ipratropium [DuoNeb 3.0-0.5 MG/3 ML] 1 ampule INH BID 12/13/17 [ History] Fexofenadine HCl [Esther Allergy] 180 mg PO DAILY 12/13/17 [History] Levothyroxine [Synthroid] 44 mcg PO Q2D 12/13/17 [History] Umeclidinium [place] [Incruse Ellipta*] 1 inh INH DAILY@1200 12/13/17 [History] buPROPion HCl [Wellbutrin Xl] 300 mg PO DAILY 12/13/17 [History] Hydrocodone/Acetaminophen [Hydrocodon-Acetaminophen 5-325] 1 tab PO Q4H PRN [History] Polyethylene Glycol 3350 [MiraLAX] 17 gm PO DAILY 03/05/18 [History] guaiFENesin/Dextromethorphan [Safetussin DM] 10 ml PO Q4H PRN 03/05/18 [History] Past Medical History HEENT History: Reports: Allergic Rhinitis, Cataract, Impaired Vision Cardiovascular History: Reports: High Cholesterol, Hypertension Respiratory History: Reports: Asthma, COPD Other Respiratory History: chronic cough Gastrointestinal History: Reports: Chronic Constipation, Diverticulosis, GERD Genitourinary History: Reports: Renal Disease, Urinary Incontinence Other Genitourinary History: CKD III LAV CREWMAN History: Reports: Endometriosis, Other LAV CREWMAN History: D&C, Endometriosis biopsy 11/28. Musculoskeletal History: Reports: Arthritis, Back Pain, Chronic, Fracture Other Musculoskeletal History: chronic arm, low back and foot pain. SPONDYLOSIS. HYPERURICEMIA Neurological History: Reports: Vertigo Psychiatric History: Reports: Anxiety, Bipolar, Depression Other Psychiatric History: personality disorder. generalized anxiety disorder. 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 breast cancer - Infectious Disease History Infectious Disease History: Reports: Chicken Pox, Measles - Past Surgical History Head Surgeries/Procedures: Reports: None HEENT Surgical History: Reports: Cataract Surgery, Oral Surgery, Tonsillectomy Cardiovascular Surgical History: Reports: None Respiratory Surgical History: Reports: Other (See Below) Other Respiratory Surgeries/Procedures: right lobectomy GI Surgical History: Reports: Cholecystectomy, Colonoscopy, EGD Female Surgical History: Reports: Breast Biopsy, Section Endocrine Surgical History: Reports: None Other Neurological Surgeries/Procedures: Hx of neck surgery Musculoskeletal Surgical History: Reports: None Oncologic Surgical History: Reports: Biopsy of Breast, Lobectomy, Lumpectomy Social & Family History - Family History Family Medical History: Noncontributory HEENT: Reports: None Cardiac: Reports: Heart Failure Respiratory: Reports: None GI: Reports: None : Reports: None OBGYN: Reports: None Musculoskeletal: Reports: None Neurological: Reports: None Psychiatric: Reports: None Endocrine/Metabolic: Reports: Diabetes, type II Hematologic: Reports: Anemia Immunologic: Reports: None Dermatologic: Reports: None Oncologic: Reports: Lung - Caffeine Use Caffeine Use: Reports: Coffee, Soda Other Caffeine Use: coke ED ROS GENERAL - Review of Systems Review Of Systems: See Below Constitutional: Reports: No Symptoms HEENT: Reports: No Symptoms Respiratory: Reports: Shortness of Breath Cardiovascular: Reports: Chest Pain Endocrine: Reports: No Symptoms GI/Abdominal: Reports: No Symptoms : Reports: No Symptoms Musculoskeletal: Reports: No Symptoms Skin: Reports: No Symptoms Neurological: Reports: No Symptoms Psychiatric: Reports: No Symptoms Hematologic/Lymphatic: Reports: No Symptoms Immunologic: Reports: No Symptoms ED EXAM, GENERAL - Physical Exam Exam: See Below Exam Limited By: No Limitations General Appearance: Alert, WD/WN, No Apparent Distress Head: Atraumatic, Normocephalic Neck: Normal Inspection, Supple, Non-Tender, Full Range of Motion Respiratory/Chest: No Respiratory Distress, Lungs Clear, Normal Breath Sounds, No Accessory Muscle Use, Chest Non-Tender GI/Abdominal: Normal Bowel Sounds, Soft, Non-Tender, No Organomegaly, No Distention, No Abnormal Bruit, No Mass Back Exam: Normal Inspection, Full Range of Motion, NT Extremities: Normal Inspection, Normal Range of Motion, Non-Tender, Normal Capillary Refill, No Pedal Edema Neurological: Alert, Oriented, CN II-XII Intact, Normal Cognition, Normal Gait, Normal Reflexes, No Motor/Sensory Deficits Psychiatric: Normal Affect, Normal Mood Skin Exam: Warm, Dry, Intact, Normal Color, No Rash Lymphatic: No Adenopathy Course - Vital Signs Last Recorded V/S: Last Vital Signs Temp 36.3 C 11/09/18 16:45 Pulse 100 11/09/18 16:45 Resp 18 11/09/18 16:45 BP 139/85 11/09/18 16:45 Pulse Ox 96 11/09/18 16:45 - Orders/Labs/Meds Orders: Active Orders 24 hr Category Date Time Status EKG Documentation Completion [RC] ASDIRECTED Care 11/09/18 16:49 Active Peripheral IV Care [RC] . DIRECTED Care 11/09/18 16:49 Active Sodium Chloride 0.9% [Normal Saline] 1,000 ml Med 11/09/18 17:00 Active IV ASDIRECTED Sodium Chloride 0.9% [Saline Flush] Med 11/09/18 16:48 Active 10 ml FLUSH Q8HR PRN Peripheral IV Insertion Adult [OM.PC] Routine Oth 11/09/18 16:48 Ordered EKG 12 Lead [EK] Routine Ther 11/09/18 16:48 Ordered Medication Orders Sodium Chloride (Normal Saline) 1,000 mls @ 150 mls/hr IV ASDIRECTED TOMMY Last Admin: 11/09/18 17:40 Dose: 150 mls/hr Sodium Chloride (Saline Flush) 10 ml FLUSH Q8HR PRN PRN Reason: keep vein open Labs: Laboratory Tests 11/09/18 11/09/18 Range/Units 17:00 17:00 WBC 12.50 H (5.00-10.00) 10^3/uL RBC 4.08 (3.80-5.50) 10^6/uL Hgb 13.3 (12.0-16.0) g/dL Hct 38.8 (37.0-47.0) % MCV 95.1 H (82.0-92.0) fL MCH 32.6 H (27.0-31.0) pg MCHC 34.3 (32.0-36.0) g/dL RDW 14.3 (11.5-14.5) % Plt Count 334 (150-400) 10^3/uL MPV 9.9 (7.4-10.4) fL Immature Gran % (Auto) 0.2 (0.0-5.0) % Neut % (Auto) 66.6 (50.0-70.0) % Lymph % (Auto) 21.0 (20.0-40.0) % [place] % (Auto) 9.2 H (2.0-8.0) % Eos % (Auto) 2.4 (1.0-3.0) % Baso % (Auto) 0.6 (0.0-1.0) % Immature Gran # (Auto) 0.02 (0.00-0.50) 10^3/uL Neut # (Auto) 8.34 H (2.50-7.00) 10^3/uL Lymph # (Auto) 2.62 (1.00-4.00) 10^3/uL [place] # (Auto) 1.15 H (0.10-0.80) 10^3/uL Eos # (Auto) 0.30 (0.10-0.30) 10^3/uL Baso # (Auto) 0.07 (0.00-0.10) 10^3/uL Sodium 135 L (136-145) mmol/L Potassium 5.0 D (3.3-5.3) mmol/L Chloride 98 (98-115) mmol/L Carbon Dioxide 22.3 (21.0-32.0) mmol/L Anion Gap 19.7 H (5-15) mmol/L BUN 19 (6-25) mg/dL Creatinine 1.08 (0.51-1.17) mg/dL Est Cr Clr Drug Dosing 35.60 mL/min Estimated GFR (MDRD) 49 mL/min Glucose 104 H (75 - 99) mg/dL Calcium 9.2 (8.7-10.3) mg/dL Total Bilirubin 0.3 (0.2-1.0) mg/dL AST 22 (15-37) U/L ALT 27 (12-78) U/L Alkaline Phosphatase 94 (46-116) IU/L Creatine Kinase 69 (26-276) U/L CK-MB (CK-2) 1.30 (0.00-4.30) ng/mL Troponin I 0.10 H* (0.00-0.070) ng/mL Total Protein 7.2 (6.4-8.2) g/dL Albumin 3.53 (3.00-4.80) g/dL Meds: Medications Generic Name Dose Route Start Last Admin Trade Name Freq PRN Reason Stop Dose Admin Sodium Chloride 1,000 mls @ 150 mls/hr 11/09/18 17:00 11/09/18 17:40 Normal Saline IV 150 mls/hr ASDIRECTED TOMMY Administration Sodium Chloride 10 ml 11/09/18 16:48 Saline Flush FLUSH Q8HR PRN keep vein open Discontinued Medications Generic Name Dose Route Start Last Admin Trade Name Freq PRN Reason Stop Dose Admin Aspirin 243 mg 11/09/18 16:54 11/09/18 17:00 Aspirin PO 11/09/18 16:55 243 mg ONETIME ONE Administration Nitroglycerin 1 gm 11/09/18 16:54 11/09/18 17:01 Nitro-Bid 2% TOP 11/09/18 16:55 1 gm ONETIME ONE Administration - Radiology Interpretation Free Text/Narrative:: CXR- NAD Departure - Departure Time of Disposition: 17:48 Disposition: Refer to Observation Condition: Fair Clinical Impression: Elevated troponin I level Chest pain Qualifiers: Chest pain type: unspecified Qualified Code(s): R07.9 - Chest pain, unspecified - Discharge Information Referrals: Inga Molina MD [Primary Care Provider] - Forms: ED Department Discharge - My Orders Last 24 Hours: My Active Orders 11/09/18 16:48 Sodium Chloride 0.9% [Saline Flush] 10 ml FLUSH Q8HR PRN Peripheral IV Insertion Adult [OM.PC] Routine EKG 12 Lead [EK] Routine 11/09/18 16:49 EKG Documentation Completion [RC] ASDIRECTED Peripheral IV Care [RC] . DIRECTED 11/09/18 17:00 Sodium Chloride 0.9% [Normal Saline] 1,000 ml IV ASDIRECTED - Assessment/Plan Last 24 Hours: My Active Orders 11/09/18 16:48 Sodium Chloride 0.9% [Saline Flush] 10 ml FLUSH Q8HR PRN Peripheral IV Insertion Adult [OM.PC] Routine EKG 12 Lead [EK] Routine 11/09/18 16:49 EKG Documentation Completion [RC] ASDIRECTED Peripheral IV Care [RC] . DIRECTED 11/09/18 17:00 Sodium Chloride 0.9% [Normal Saline] 1,000 ml IV ASDIRECTED Assessment:: 1. chest pain Plan: 1. admit to medicine 23 hour obs- [place] 2. ASA/Nitro 3. repeat trop I Q6 x 3 4. supportive care
--- NOTE | 2018-11-09 17:38 | CR ---
[id number] RAD/RAD Chest PA And Lateral EXAM: RAD Chest PA And Lateral INDICATION: CHEST PAIN COMPARISON: CT from March 05, 2018. DISCUSSION: Cardiomediastinal silhouette is normal in size and contour. No infiltrate, effusion, pneumothorax, or edema. IMPRESSION: No acute findings in the chest. Sushant Marcos MD 11/09/18 [id number] Thank you for allowing us to participate in the care of your patient.
[2018-11-09] MEDS: Sodium Chloride 0.9% 1,000 ML IV SCH (17:40)
[2018-11-09 17:41] LABS: ANION GAP 19.7 mmol/L (5-15)
[2018-11-09] MEDS: Nitroglycerin 2% Oint 1 GM UD Packet TOP SCH ×2 (18:44→23:52)
[2018-11-09] MEDS ORDERED: guaiFENesin/Dextromethorphan 100-10 MG/5 ML Soln 5 ML Cup PO PRN (19:17)
[2018-11-09] MEDS ORDERED: Bisacodyl 10 MG Supp RECTAL PRN (19:17)
[2018-11-09] MEDS ORDERED: Albuterol/Ipratropium 3.0-0.5 MG/3 ML Neb Soln INH PRN (19:17)
[2018-11-09] MEDS ORDERED: Polyvinyl Alcohol 1.4% Ophth Soln 15 ML Bottle EYEBOTH PRN (19:17)
[2018-11-09] MEDS ORDERED: Polyethylene Glycol 3350 Powder 17 GM Packet PO PRN (19:17)
[2018-11-09] MEDS ORDERED: Nystatin Topical Powder 15 GM Bottle TOP PRN (19:25)
[2018-11-09] MEDS ORDERED: Levothyroxine 88 MCG Tab PO SCH (19:30)
[2018-11-09] MEDS: traMADol 50 MG Tab PO SCH (20:33)
[2018-11-09] MEDS: Clopidogrel 75 MG Tab PO SCH (20:34)
[2018-11-09] MEDS: ALPRAZolam 0.25 MG Tab PO SCH (20:35)
[2018-11-09] MEDS: Acetaminophen 500 MG Tab PO SCH (20:36)
[2018-11-09] MEDS: Allopurinol 100 MG Tab PO SCH (20:36)
[2018-11-09] MEDS ORDERED: atorvaSTATin 10 MG Tab PO SCH (21:00)
[2018-11-09] MEDS ORDERED: Non-Formulary Medication 1 Each (Lurasidone Hcl [Latuda] 120 MG) PO SCH (21:00)
[2018-11-09] MEDS ORDERED: Lidocaine 2% 100 MG/5 ML Syringe IVPUSH PRN (22:13)
[2018-11-09] MEDS ORDERED: EPINEPHrine 1:10,000 1 MG/10 ML Syringe IVPUSH PRN (22:13)
[2018-11-09] MEDS ORDERED: Nitroglycerin 0.4 MG Tab.SL SL PRN (22:13)
[2018-11-09] MEDS ORDERED: Atropine 0.1 MG/ML 10 ML Syringe IVPUSH PRN (22:13)
[2018-11-10] MEDS: Sodium Chloride 0.9% 1,000 ML IV SCH ×2 (00:25→07:26)
[2018-11-10] MEDS: Nitroglycerin 2% Oint 1 GM UD Packet TOP SCH ×2 (05:26→12:08)
[2018-11-10] MEDS: traMADol 50 MG Tab PO SCH (06:16)
[2018-11-10 06:53] VITALS: BP 126/71; PULSE 94
[2018-11-10] MEDS ORDERED: Levothyroxine 88 MCG Tab PO SCH (07:00)
[2018-11-10] MEDS ORDERED: [UNRECOGNIZED DRUG - MIXTURE] PO SCH (08:00)
[2018-11-10] MEDS ORDERED: Docusate Sodium 100 MG Cap PO SCH (08:00)
[2018-11-10 08:23] LABS: ANION GAP 15.4 mmol/L (5-15)
[2018-11-10] MEDS ORDERED: UMECLIDIN INH SCH (09:00)
[2018-11-10] MEDS ORDERED: Pantoprazole 40 MG Tab.CR PO SCH (09:00)
[2018-11-10] MEDS ORDERED: Aspirin 325 MG Tab.EC PO SCH (09:00)
[2018-11-10] MEDS ORDERED: Cholecalciferol (Vitamin D3) 25 MCG Tab PO SCH (09:00)
[2018-11-10] MEDS ORDERED: FLUTICASONE INH SCH (09:00)
[2018-11-10] MEDS ORDERED: buPROPion 150 MG Tab.ER PO SCH (09:00)
[2018-11-10] MEDS ORDERED: buPROPion 300 MG Tab.ER PO SCH (09:00)
[2018-11-10] MEDS ORDERED: [UNRECOGNIZED DRUG - REMARK] PO SCH (09:00)
[2018-11-10] MEDS ORDERED: VILANTER INH SCH (09:00)
[2018-11-10] MEDS: ALPRAZolam 0.25 MG Tab PO SCH (09:12)
[2018-11-10] MEDS: Acetaminophen 500 MG Tab PO SCH (09:12)
[2018-11-10] MEDS: Allopurinol 100 MG Tab PO SCH (09:13)
[2018-11-10] MEDS: Clopidogrel 75 MG Tab PO SCH (09:13)
[2018-11-10] MEDS ORDERED: buPROPion 150 MG Tab.ER PO ONE (10:00)
--- NOTE | 2018-11-10 12:08 | HP ---
HISTORY OF PRESENT ILLNESS: This is a 73-year-old female who lives at the [facility] in [place]. She was having some chest pressure underneath her left breast and she felt a little dizzy and just did not feel right. She notified the nursing staff. At that time, the nursing staff had called me and I advised them to take her to the emergency room for further evaluation and treatment at that time. Once the patient was in the ER, she was given some nitroglycerin paste and some oxygen. Her chest pain did go away. She no longer had any chest pain after that. The patient's troponin was slightly elevated at 0.10. She was admitted at that time. PAST MEDICAL HISTORY: The patient does have a past medical history of coronary artery disease, lung cancer, breast cancer, gout, hyperlipidemia, depression, mood disorder, allergies, hypothyroidism, GERD, chronic pain, and chronic constipation. 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 She also had a laparoscopic hysterectomy and bilateral salpingo-oophorectomy in June of 2017. She also had left breast lumpectomy in June of 2017. At that time, she also had a right upper lobe wedge resection of the right upper lobe of her lung in February of 2018. MEDICATIONS: That she takes at the custodial: She takes Tylenol as needed; DuoNebs every 6 hours as needed. She takes allopurinol 100 mg twice daily. She takes Xanax 0.25 as needed. She has Artificial Tears as needed for dry eyes. She takes enteric-coated aspirin 81 mg daily. Atorvastatin 5 mg daily. Dulcolax as needed for constipation. Wellbutrin 450 mg daily. She takes a vitamin D3 daily. She takes Colace 100 mg twice a day. She takes Trelegy Ellipta inhaler once daily. She takes some Robitussin-DM as needed for cough. She takes Femara 2.5 mg daily. Synthroid 44 mcg every other day. She also takes a Centrum multivitamin daily. She takes Esther daily. She also take an iron supplement called Niferex 150 mg daily. She takes Latuda 120 mg at bedtime. Protonix 40 mg daily in the morning. Some MiraLAX as needed. She takes Senna Plus two tabs twice a day. She also takes tramadol twice a day scheduled 50 mg. ALLERGIES: She is allergic to BuSpar, erythromycin, lisinopril, penicillin, and strawberries. SOCIAL/PERSONAL HISTORY: The patient is retired. Lives at [facility]. No alcohol or tobacco use. REVIEW OF SYSTEMS: CONSTITUTIONAL: No weight loss. No fever. No chills. No night sweats. Appetite is good. No fatigue. The patient says she is doing well. EYES: No recent visual changes. ENT: No sinus congestion or hoarseness. CARDIOVASCULAR: No chest pain or palpitations. RESPIRATORY: No cough. She says that she feels a little short of breath. GI: No vomiting, diarrhea or melena. : No dysuria or hematuria. MUSCULOSKELETAL: No new bone pain or joint swelling. INTEGUMENTARY: No rash or pruritus. NEUROLOGIC/PSYCHIATRIC: No recent headache or focal weakness. No depressive symptoms. ENDOCRINE: No heat or cold intolerances or polydipsia. HEMATOLOGIC/LYMPHATIC: No excessive bruising or lymph node swelling. ALLERGIC/IMMUNOLOGIC: No hives or recurrent infections. PHYSICAL EXAMINATION: GENERAL: This is an elderly white female in no acute distress. VITAL SIGNS: Blood pressure is 133/77, pulse rate is 95, temperature is 97.4, respiratory rate is 20 breaths per minute, and oxygen saturation on room air is 94%. The patient's weight is 177 pounds. HEENT: Head is normocephalic. EOMs are intact. Pupils are equal, round, and reactive to light and accommodation. Bilateral tympanic membranes are intact. Nose is clear. No pharyngeal erythema noted. NECK: Supple. No JVD. Trachea midline. LUNGS: Sounds are diminished throughout lung streeter, but no wheezes or crackles heard on auscultation. CARDIAC: Borderline sinus tachycardia at about 100 beats per minute, but regular rate and rhythm. No murmurs identified. ABDOMEN: Soft, nontender, nondistended. Bowel sounds present x4. EXTREMITIES: No joint effusion noted. Full range of motion. NEUROLOGIC: Grossly intact. DIAGNOSTIC: The patient's chest x-ray that was obtained in the ER shows no acute findings per Radiology. The patient's EKG shows normal sinus rhythm. The patient's lab work that was obtained in the emergency room, CBC showed a white count slightly elevated at 12.5, hemoglobin was 13.3, and platelet count was 334. The patient's chemistry panel shows sodium slightly low at 135, potassium 5.0. The patient's CK-MB within normal range at 1.3. Troponin was slightly elevated at 0.10. Otherwise, all other lab work was unremarkable. IMPRESSION/PLAN: 1. Mild myocardial infarction with slight elevation in troponin up to 0.10. Plan: We are going to admit the patient. We are going to give her aspirin 325 mg daily. She was given additional 243 mg in the emergency room. We are going to start her on Plavix 75 mg b.i.d. twice a day. We will do a troponin series 6 hours following the one done in the ER and then another one tomorrow morning. Place the patient on telemetry. She also will get nitroglycerin paste topically 1 g every 6 hours. 2. History of lung cancer with lung resections. Plan: We will continue with her Trelegy inhaler daily and she can have DuoNebs as needed. I did place her on 2 L nasal cannula. For now, she has felt a little short of breath. 3. History of gout. Plan: We will continue with her allopurinol 100 mg daily. 4. History of hyperlipidemia. Plan: Continue with atorvastatin 5 mg daily. 5. History of depression. Plan: Continue with Wellbutrin 450 mg daily along with her Latuda 120 mg at bedtime. 6. History of allergies. Plan: Continue with Esther 1 tab daily. 7. History of breast cancer. Plan: Continue with Femara 2.5 mg daily. 8. History of hypothyroidism. Plan: Continue with levothyroxine 44 mcg every other day. 9. History of gastroesophageal reflux disease. Plan: Continue with Protonix 40 mg daily. 10.History of chronic pain. Continue with tramadol 50 mg twice a day as scheduled. OVERALL PLAN: We will keep the patient here on the nitroglycerin paste with telemetry. Monitor for any chest pain. We did start her on Plavix and aspirin. If the troponins do trend down and she seems to be chest pain-free, we will send her back to the [facility] tomorrow. /[id number]/MODL
[2018-11-10] MEDS ORDERED: Multivitamins with Minerals/Iron/Folic Acid/Lycopene Tab PO SCH (18:00)
[2018-11-11] MEDS ORDERED: buPROPion 150 MG Tab.ER PO SCH (09:00)
--- NOTE | 2018-11-11 09:37 | DISCH ---
ADMITTING DIAGNOSIS: Chest pain with slight elevation in troponin. FINAL DIAGNOSIS: Mild myocardial infarction with very slight rise in troponin. Chest pain resolved. BRIEF HISTORY AND ESSENTIAL PHYSICAL FINDINGS: This is a 73-year-old female patient who was living at the [facility] in [place]. She started having some dizziness, chest pain, shortness of breath. She just did not feel well. The pain was like a pressure underneath her left breast. She alerted the nursing staff there. The nursing staff had informed me and I had advised her to go to the emergency room at that time. The patient was brought by a [place] van to the emergency room, once the patient arrived in the ER her chest pain was resolved. They did give her nitroglycerin paste in the emergency room. Her troponin was slightly elevated at 0.10. She was admitted at that time. The patient was placed on oxygen. The patient has been chest pain-free since admission. SIGNIFICANT LABS XRAYS AND CONSULTATION FINDINGS: The patient's chest x-ray that was obtained in the emergency room shows no acute findings per the radiologist. EKG that was obtained just showed normal sinus rhythm. The patient's lab work that was obtained obtained in the emergency room showed a white count elevated at 12.5. Sodium was slightly low at 135, CK-MB within normal range at 1.3. Her troponin was 0.10. Rest of her lab work was unremarkable. Repeat lab work that was obtained this morning prior to discharge; CBC shows white count at 10.7, hemoglobin had just dropped a little bit with IV fluids down to 11.7. Chemistry panel was unremarkable except for magnesium is slightly low at 1.5. The patient's troponins had trended down nicely. Her midnight draw of troponin came down at 0.09 and her troponin this morning had come down to 0.08. COURSE IN HOSPITAL WITH COMPLICATIONS IF ANY: 1. Mild VT: The patient had some chest pain when she came to the ER. She was given oxygen along with nitroglycerin paste and her chest pain had gone away. She no longer had any chest pain throughout the hospital stay. She longer had any shortness of breath. We did place her on 2 L nasal cannula. The patient does have a medical history of lobectomy along with a lobe wedge resection to her lungs. The patient was very anxious. We gave her some Xanax p.o. and she did respond well. She had no chest pain or shortness of breath after that point. 2. History of lung cancer. 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 The patient had a left upper lobectomy in 02/2017. The patient also had a lesion on her right upper lobe and also had a wedge resection of the right upper lobe of the lung in 02/2018. We will continue the patient on DuoNeb every 6 hours as needed. We will continue the patient on Trelegy inhaler. 3. History of gout. Plan; continue with allopurinol 100 mg daily. 4. History of hyperlipidemia. Plan; continue with atorvastatin 5 mg daily. 5. History of depression. Plan; continue with Wellbutrin 450 mg daily and Latuda 120 mg at bedtime. 6. History of allergies. Plan; continue with Esther daily. 7. History of breast cancer. Plan; continue with Femara 2.5 mg daily. 8. History of hypothyroidism. Plan; continue with levothyroxine 44 mcg every other day. 9. History of gastroesophageal reflux disease. Plan; continue with Protonix 40 mg daily in the morning. 10.History of chronic pain. Plan; continue with tramadol as scheduled as previously. OVERALL PLAN: The patient will be discharged home today back to [facility]. She will follow up with myself in the clinic next week or Rula Ramirez. At that time, we will check a troponin along with magnesium level to see how her magnesium level is doing along to see if her CK-MB and troponin returns to normal. /[id number]/MODL MTDD
== END 2018-11-10 14:25 ==
LOC: KA.ED 16:31 → KA.MS 17:58
PROVIDERS: ADMIT Physician Assistant; ATTEND Physician Assistant
DX: I21.9 Acute myocardial infarction, unspecified (principal); I25.10 Atherosclerotic heart disease of native coronary artery without angina pectoris; M10.9 Gout, unspecified; E78.5 Hyperlipidemia, unspecified; E03.9 Hypothyroidism, unspecified; K21.9 Gastro-esophageal reflux disease without esophagitis; F32.9 Major depressive disorder, single episode, unspecified; R74.8 Abnormal levels of other serum enzymes; G89.29 Other chronic pain; Z79.82 Long term (current) use of aspirin; Z88.8 Allergy status to other drugs, medicaments and biological substances; Z88.1 Allergy status to other antibiotic agents; Z88.0 Allergy status to penicillin; Z91.018 Allergy to other foods; Z85.3 Personal history of malignant neoplasm of breast; Z79.899 Other long term (current) drug therapy; Z85.118 Personal history of other malignant neoplasm of bronchus and lung
CPT/HCPCS: 36415; 71046; 80048; 80053; 82550; 82553; 83735; 84484; 85025; 93005; 96360; 96361; 99285; A9270; G0378; J7030; 99284

== ENCOUNTER 2020-07-16 13:18 | Observation (INO) | payer MEDICARE, MEDICAID ==
[2020-07-16] MEDS ORDERED: Sodium Chloride 0.9% 1,000 ML IV ONE (13:50)
--- NOTE | 2020-07-16 13:56 | EDM.PDOC ---
ED HPI GENERAL MEDICAL PROBLEM - General Chief Complaint: Abdominal Pain Stated Complaint: ABDOMINAL PAIN Time Seen by Provider: 07/16/20 13:42 Source of Information: Reports: Patient History Limitations: Reports: No Limitations - History of Present Illness INITIAL COMMENTS - FREE TEXT/NARRATIVE: Patient presents for evaluation after fall two days ago. She is also having pain in low abdomen. She lives in assisted living. Abdominal Pain Score (Numeric/FACES): 8 - Related Data Allergies Allergy/AdvReac Type Severity Reaction Status Date / Time buspirone HCl [From BuSpar] Allergy Rash Verified 07/16/20 13:41 erythromycin base Allergy UNKNOWN Verified 07/16/20 13:41 lisinopril Allergy Cannot Verified 07/16/20 13:41 Remember Penicillins Allergy Throat Verified 07/16/20 13:41 swelling strawberry Allergy Hives Verified 07/16/20 13:41 Home Meds: Home Meds Docusate Sodium [Colace] 100 mg PO BID@0800,1800 01/12/14 [History] Acetaminophen 1,000 mg PO BID 07/26/16 [History] Allopurinol [Zyloprim] 100 mg PO BID 07/26/16 [History] Iron Aspgly&PS/B12/C/Ca/FA/Suc [Niferex-150 Forte] 150 mg PO DAILY 07/26/16 [History] Lurasidone HCl [Latuda] 120 mg PO BEDTIME 07/26/16 [History] Multivit-Min/FA/Lycopene/Lut [Senior Tabs] 1 tab PO DAILY@1800 07/26/16 [History] Sennosides 17.2 mg PO BID 07/26/16 [History] atorvaSTATin [Lipitor] 10 mg PO BEDTIME 11/09/16 [History] Aspirin [Halfprin] 81 mg PO WITHBREAKFAST 01/23/17 [History] Levothyroxine [Synthroid] 88 mcg PO Q2D 01/23/17 [History] Letrozole 2.5 mg PO DAILY 05/09/17 [History] Fexofenadine HCl [Esther Allergy] 180 mg PO DAILY 12/13/17 [History] Levothyroxine [Synthroid] 44 mcg PO Q2D 12/13/17 [History] guaiFENesin/Dextromethorphan [Safetussin DM] 10 ml PO Q4H PRN 03/05/18 [History] Acetaminophen [Tylenol] 650 mg PO Q4H PRN 11/09/18 [History] Nystatin 15 gm TOP TID PRN 11/09/18 [History] buPROPion HCL [Wellbutrin Xl] 300 mg PO DAILY 11/09/18 [History] traMADol HCl [Tramadol HCl] 50 mg PO 0700,199911/09/18 [History] Cholecalciferol (Vitamin D3) [D3-2000] 50 mcg PO DAILY 07/16/20 [History] Divalproex Sodium [Depakote ER] 500 mg PO BEDTIME 07/16/20 [History] Fluticasone/Umeclidin/Vilanter [Trelegy Ellipta 100-62.5-25] 1 each INH DAILY 07/16/20 [History] Ipratropium/Albuterol Sulfate [Iprat-Albut 0.5-3(2.5) MG/3 ML] 3 ml IH ASDIRECTED PRN 07/16/20 [History] Ipratropium/Albuterol Sulfate [Iprat-Albut 0.5-3(2.5) MG/3 ML] 3 ml IH BID 07/16/20 [History] Loperamide HCl [Loperamide] 2 mg PO ASDIRECTED PRN 07/16/20 [History] Menthol [Cough Drops] 5 mg MM ASDIRECTED PRN 07/16/20 [History] Metoprolol Tartrate 12.5 mg PO BID 07/16/20 [History] Pantoprazole Sodium [Protonix] 40 mg PO BEDTIME 07/16/20 [History] levoFLOXacin [Levofloxacin] 250 mg PO DAILY 07/16/20 [History] predniSONE [Prednisone] 20 mg PO DAILY 07/16/20 [History] Past Medical History HEENT History: Reports: Allergic Rhinitis, Cataract, Impaired Vision Cardiovascular History: Reports: High Cholesterol, Hypertension Respiratory History: Reports: Asthma, COPD Other Respiratory History: chronic cough Gastrointestinal History: Reports: Chronic Constipation, Diverticulosis, GERD Genitourinary History: Reports: Renal Disease, Urinary Incontinence Other Genitourinary History: CKD III SECTION LABORER History: Reports: Endometriosis, Other SECTION LABORER History: D&C, Endometriosis biopsy 11/28. Musculoskeletal History: Reports: Arthritis, Back Pain, Chronic, Fracture Other Musculoskeletal History: chronic arm, low back and foot pain. SPONDYLOSIS. HYPERURICEMIA Neurological History: Reports: Vertigo Psychiatric History: Reports: Anxiety, Bipolar, Depression Other Psychiatric History: personality disorder. generalized anxiety disorder. 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 breast cancer Dermatologic History: Reports: Other (See Below) Other Dermatologic History: Rashes on left groin - Infectious Disease History Infectious Disease History: Reports: Chicken Pox, Measles - Past Surgical History Head Surgeries/Procedures: Reports: None HEENT Surgical History: Reports: Cataract Surgery, Oral Surgery, Tonsillectomy Cardiovascular Surgical History: Reports: None Respiratory Surgical History: Reports: Other (See Below) Other Respiratory Surgeries/Procedures: right lobectomy GI Surgical History: Reports: Cholecystectomy, Colonoscopy, EGD Female Surgical History: Reports: Breast Biopsy, Section Endocrine Surgical History: Reports: None Other Neurological Surgeries/Procedures: Hx of neck surgery Musculoskeletal Surgical History: Reports: None Other Musculoskeletal Surgeries/Procedures:: Bilateral Leg surgery done Oncologic Surgical History: Reports: Biopsy of Breast, Lobectomy, Lumpectomy Social & Family History - Family History Family Medical History: No Pertinent Family History HEENT: Reports: None Cardiac: Reports: Heart Failure Respiratory: Reports: None GI: Reports: None : Reports: None OBGYN: Reports: None Musculoskeletal: Reports: None Neurological: Reports: None Psychiatric: Reports: None Endocrine/Metabolic: Reports: Diabetes, type II Hematologic: Reports: Anemia Immunologic: Reports: None Dermatologic: Reports: None Oncologic: Reports: Lung - Tobacco Use Tobacco Use Status *Q: Never Tobacco User - Caffeine Use Caffeine Use: Reports: Coffee Other Caffeine Use: coke - Recreational Drug Use Recreational Drug Use: No ED ROS GENERAL - Review of Systems Review Of Systems: See Below Constitutional: Denies: Fever, Chills, Malaise, Weakness HEENT: Denies: Ear Pain, Vision Change Respiratory: Denies: Shortness of Breath, Cough Cardiovascular: Denies: Chest Pain GI/Abdominal: Reports: Abdominal Pain, Nausea. Denies: Diarrhea, Vomiting : Denies: Dysuria Musculoskeletal: Reports: Shoulder Pain. Denies: Neck Pain, Arm Pain, Back Pain, Hand Pain Skin: Denies: Cyanosis, Jaundice, Mottled, Pallor, Diaphoresis Neurological: Denies: Confusion, Dizziness, Seizure, Trouble Speaking Psychiatric: Reports: Anxiety. Denies: Agitation, Confusion - Physical Exam Exam: See Below Exam Limited By: No Limitations General Appearance: Alert, WD/WN, No Apparent Distress Eye Exam: Bilateral Eye: EOMI, Normal Inspection, PERRL Ears: Normal External Exam, Hearing Loss (chronic) Nose: Normal Inspection, No Blood Throat/Mouth: Normal Inspection, Normal Lips, Normal Voice, No Airway Compromise Head Exam: Atraumatic, Normocephalic Neck: Normal Inspection, Full Range of Motion Respiratory/Chest: No Respiratory Distress, Lungs Clear, Normal Breath Sounds, No Accessory Muscle Use Cardiovascular: Regular Rate, Rhythm, No Murmur GI/Abdominal: Soft, No Organomegaly, No Distention, Tender (across lower abdomen and suprapubic) Neuro Exam (Abbreviated): Alert, Oriented, No Motor/Sensory Deficits Back Exam: Normal Inspection, Full Range of Motion. No: CVA Tenderness (L), CVA Tenderness (R) Extremities: Normal Inspection, Normal Range of Motion Psychiatric: Normal Affect, Normal Mood Skin Exam: Warm, Dry, Intact, Normal Color, No Rash Course - Vital Signs Last Recorded V/S: Last Vital Signs Temp 95.9 F L 07/16/20 13:28 Pulse 89 07/16/20 13:28 Resp 24 H 07/16/20 13:28 BP 124/79 07/16/20 13:28 Pulse Ox 94 L 07/16/20 13:28 - Orders/Labs/Meds Orders: Active Orders 24 hr Category Date Time Status Patient Status [ADT] Routine ADT 07/16/20 18:02 Ordered NPO Now [Nothing per Oral Now Diet] [DIET] Diet 07/17/20 Breakfast Ordered CORONAVIRUS COVID-19 RAPID [MOLEC] Urgent Lab 07/16/20 18:03 Ordered CULTURE URINE [RM] Stat Lab 07/16/20 15:01 Ordered Sodium Chloride 0.9% @ 100 MLS/HR(500ml) Med 07/16/20 18:15 Ordered Sodium Chloride 0.9% [Normal Saline] 500 ml IV ASDIRECTED Sodium Chloride 0.9% [Normal Saline] 50 ml Med 07/16/20 17:00 Active IV ASDIRECTED Medication Orders Sodium Chloride (Normal Saline) 50 mls @ 200 mls/min IV ASDIRECTED TOMMY Last Admin: 07/16/20 16:58 Dose: 200 mls/min Documented by: ELIO Sodium Chloride (Normal Saline) 500 mls @ 100 mls/hr IV ASDIRECTED TOMMY Labs: Laboratory Tests 07/16/20 07/16/20 07/16/20 Range/Units 14:10 14:22 14:22 WBC 18.30 H (5.00-10.00) 10^3/uL RBC 4.05 (3.80-5.50) 10^6/uL Hgb 12.1 (12.0-16.0) g/dL Hct 37.7 (37.0-47.0) % MCV 93.1 H (82.0-92.0) fL MCH 29.9 (27.0-31.0) pg MCHC 32.1 (32.0-36.0) g/dL RDW 15.7 H (11.5-14.5) % Plt Count 349 (150-400) 10^3/uL MPV 10.8 H (7.4-10.4) fL Immature Gran % (Auto) 0.3 (0.0-5.0) % Neut % (Auto) 87.6 H (50.0-70.0) % Lymph % (Auto) 9.1 L (20.0-40.0) % Dickens % (Auto) 2.6 (2.0-8.0) % Eos % (Auto) 0.2 L (1.0-3.0) % Baso % (Auto) 0.2 (0.0-1.0) % Neut # (Auto) 16.04 H (2.50-7.00) 10^3/uL Lymph # (Auto) 1.66 (1.00-4.00) 10^3/uL Dickens # (Auto) 0.48 (0.10-0.80) 10^3/uL Eos # (Auto) 0.04 L (0.10-0.30) 10^3/uL Baso # (Auto) 0.03 (0.00-0.10) 10^3/uL Immature Gran # (Auto) 0.05 (0.00-0.50) 10^3/uL Sodium 133 L (136-145) mmol/L Potassium 4.9 (3.5-5.1) mmol/L Chloride 96 L (98-107) mmol/L Carbon Dioxide 22.4 (21.0-32.0) mmol/L Anion Gap 19.5 H (5-15) mmol/L BUN 23 H (7-18) mg/dL Creatinine 1.45 H (0.51-1.17) mg/dL Est Cr Clr Drug Dosing 25.70 mL/min Estimated GFR (MDRD) 35 mL/min Glucose 165 H (70-140) mg/dL Calcium 9.4 (8.7-10.3) mg/dL Total Bilirubin 0.4 (0.2-1.0) mg/dL AST 17 (15-37) U/L ALT 19 (14-63) U/L Alkaline Phosphatase 98 (46-116) U/L Total Protein 7.4 (6.4-8.2) g/dL Albumin 2.92 L (3.40-5.00) g/dL Specimen Type Urinblad Urine Color Yellow (YELLOW) Urine Appearance Cloudy H (CLEAR) Urine pH 6.0 (5.0-9.0) Ur Specific Toyah >= 1.030 (1.005-1.030) Urine Protein Negative (NEGATIVE) mg/dL Urine Glucose (UA) Negative (NEGATIVE) mg/dL Urine Ketones Negative (NEGATIVE) mg/dL Urine Occult Blood Negative (NEGATIVE) Urine Nitrite Negative (NEGATIVE) Urine Bilirubin Negative (NEGATIVE) Urine Urobilinogen 0.2 (0.2-1.0) E.U./dL Ur Leukocyte Esterase Trace H (NEGATIVE) Urine RBC 0-5 (0-5) /HPF Urine WBC >100 H (0-5) /HPF Ur Epithelial Cells Moderate H /LPF Amorphous Sediment Moderate H (0/HPF) /HPF Urine Bacteria Moderate H (NONE TO FEW) /HPF Meds: Medications Generic Name Dose Route Start Last Admin Trade Name Freq PRN Reason Stop Dose Admin Sodium Chloride 50 mls @ 200 mls/min 07/16/20 17:00 07/16/20 16:58 Normal Saline IV 200 mls/min ASDIRECTED TOMMY Administration Sodium Chloride 500 mls @ 100 mls/hr 07/16/20 18:15 Normal Saline IV ASDIRECTED TOMMY Discontinued Medications Generic Name Dose Route Start Last Admin Trade Name Tad PRN Reason Stop Dose Admin Sodium Chloride 1,000 mls @ 999 mls/hr 07/16/20 13:50 07/16/20 15:00 Normal Saline IV 07/16/20 14:50 999 mls/hr .BOLUS ONE Administration Iopamidol 75 ml 07/16/20 16:56 07/16/20 16:57 Iopamidol 755 Mg/Ml 75 Ml Bottle IVPUSH 07/16/20 16:57 75 ml ONETIME ONE Administration - Re-Assessments/Exams Free Text/Narrative Re-Assessment/Exam: 07/16/20 16:05 WBC is 18.3 and urine shows equivocal evidence of UTI. CXR shows no evidence of pneumonia. Urine culture pending. Will treat empirically. 07/16/20 16:29 Discussed case with Lynne Sanchez NP who informed me that patient has apparently been started on Levaquin recently and was evaluated by a provider earlier today and felt she needed imaging so sent her this way. Patient is a very poor historian and nobody is here with her so information was limited. She has a history of diverticulosis so will scan for possible diverticulitis. Saline 1 liter is in. 07/16/20 18:04 CT shows uncomplicated acute pancreatitis. No evidence of diverticulitis. Discussed with Lynne Sanchez who accepted for admission to observation and start fluids. She will determine antibiotic regimen and order. Discussed plan with patient who agrees. Stable. Departure - Departure Time of Disposition: 18:03 Disposition: Refer to Observation Condition: Good Clinical Impression: Acute pancreatitis Qualifiers: Pancreatitis type: unspecified pancreatitis type Acute pancreatitis complication: unspecified Qualified Code(s): K85.90 - Acute pancreatitis without necrosis or infection, unspecified - Discharge Information Referrals: Inga Molina MD [Primary Care Provider] - Forms: ED Department Discharge Sepsis Event Note (ED) - Evaluation Sepsis Screening Result: No Definite Risk - Focused Exam Vital Signs: Vital Signs Temp Pulse Resp BP Pulse Ox 07/16/20 13:28 95.9 F L 89 24 H 124/79 94 L - My Orders Last 24 Hours: My Active Orders 07/16/20 15:01 CULTURE URINE [RM] Stat 07/16/20 17:00 Sodium Chloride 0.9% [Normal Saline] 50 ml IV ASDIRECTED 07/16/20 18:02 Patient Status [ADT] Routine 07/16/20 18:03 CORONAVIRUS COVID-19 RAPID [MOLEC] Urgent 07/16/20 18:15 Sodium Chloride 0.9% @ 100 MLS/HR(500ml) Sodium Chloride 0.9% [Normal Saline] 500 ml IV ASDIRECTED 07/17/20 Breakfast NPO Now [Nothing per Oral Now Diet] [DIET] - Assessment/Plan Last 24 Hours: My Active Orders 07/16/20 15:01 CULTURE URINE [RM] Stat 07/16/20 17:00 Sodium Chloride 0.9% [Normal Saline] 50 ml IV ASDIRECTED 07/16/20 18:02 Patient Status [ADT] Routine 07/16/20 18:03 CORONAVIRUS COVID-19 RAPID [MOLEC] Urgent 07/16/20 18:15 Sodium Chloride 0.9% @ 100 MLS/HR(500ml) Sodium Chloride 0.9% [Normal Saline] 500 ml IV ASDIRECTED 07/17/20 Breakfast NPO Now [Nothing per Oral Now Diet] [DIET]
[2020-07-16 14:47] LABS: ANION GAP 19.5 mmol/L (5-15)
--- NOTE | 2020-07-16 15:25 | CR ---
[id number] RAD/RAD Chest PA And Lateral EXAM: RAD Chest PA And Lateral CLINICAL DATA: TACHYPNEA ELEVATED WHITE BLOOD CELL COUNT COMPARISON: CORRELATION IS MADE WITH 2018 FINDINGS: There is no definite infiltrate. There is a hyperlucent left lung There is scarring on the right side IMPRESSION: NO ACUTE PROCESS INTERSTITIAL FIBROSIS PRE-EXISTING LEFT SIDE HYPERLUCENT LUNG [facility] DEVELOPMENT[facility] Isaiah Donato MD 07/16/20 [id number] Thank you for allowing us to participate in the care of your patient.
[2020-07-16] MEDS ORDERED: Iopamidol 755 Mg/ML 75 ML Bottle IVPUSH ONE (16:56)
[2020-07-16] MEDS ORDERED: Sodium Chloride 0.9% 50 ML IV SCH (17:00)
--- NOTE | 2020-07-16 17:44 | CT ---
[id number] CT/CT Abdomen Pelvis W IV EXAM: CT Abdomen Pelvis W IV CLINICAL DATA: LEUKOCYTOSIS, LOW ABDOMEN PAIN. COMPARISON STUDY: None. FINDINGS: Liver demonstrates atrophy and nodular contour suggesting underlying cirrhosis. Portal vein is normal in caliber and patent. Cholecystectomy. Common bile duct is normal in caliber. Edema adjacent to the tail the pancreas, consistent with acute pancreatitis. Kidneys demonstrate parenchymal cysts but are otherwise unremarkable. No urinary tract calculi or hydronephrosis. Sigmoid diverticulosis. No evidence of acute diverticulitis. No colitis. No small bowel obstruction or inflammation. Appendix is normal. Spondylosis. No acute fracture or compression deformity. IMPRESSION: Uncomplicated acute pancreatitis involving the tail of the pancreas. Multiple chronic findings are described above. Sushant Marcos MD 07/16/20 [id number] Thank you for allowing us to participate in the care of your patient.
[2020-07-16] MEDS ORDERED: Sodium Chloride 0.9% 500 ML IV SCH (18:15)
[2020-07-16] MEDS ORDERED: Glucagon,Human Recombinant 1 MG Vial IM PRN (21:14)
[2020-07-16] MEDS ORDERED: 50% Dextrose in Water 50 ML Syringe IVPUSH PRN (21:14)
[2020-07-16] MEDS ORDERED: Albuterol/Ipratropium 3.0-0.5 MG/3 ML Neb Soln INH PRN (21:20)
[2020-07-16] MEDS ORDERED: Acetaminophen 325 MG Tab PO PRN (21:20)
[2020-07-16] MEDS: Sodium Chloride 0.9% 1,000 ML IV SCH (21:24)
[2020-07-16] MEDS: Insulin Aspart 100 Units/ML 3 ML Pen SUBCUT SCH (21:25)
[2020-07-16] MEDS ORDERED: HYDROmorphone 1 MG/ML Syringe IVPUSH PRN (21:30)
[2020-07-16] MEDS ORDERED: Ondansetron 4 MG/2 ML SDV IVPUSH PRN (21:31)
[2020-07-16] MEDS: Metoprolol Tartrate 25 MG Tab PO SCH (22:13)
[2020-07-16] MEDS: Albuterol/Ipratropium 3.0-0.5 MG/3 ML Neb Soln INH SCH (22:14)
[2020-07-16] MEDS ORDERED: Magnesium Hydroxide 400 MG/5 ML Susp 30 ML Cup PO PRN (23:32)
[2020-07-17] MEDS: guaiFENesin/Dextromethorphan 100-10 MG/5 ML Soln 5 ML Cup PO PRN ×3 (00:20→13:34)
[2020-07-17] MEDS: traMADol 50 MG Tab PO SCH ×2 (06:16→19:45)
[2020-07-17] MEDS: Sodium Chloride 0.9% 1,000 ML IV SCH (07:27)
[2020-07-17] MEDS: Docusate Sodium 100 MG Cap PO SCH ×2 (08:16→18:19)
[2020-07-17] MEDS: buPROPion 150 MG Tab.ER PO SCH (08:16)
[2020-07-17] MEDS: Aspirin 81 MG Tab.EC PO SCH (08:16)
[2020-07-17] MEDS: Metoprolol Tartrate 25 MG Tab PO SCH ×2 (08:17→20:58)
[2020-07-17 08:23] LABS: ANION GAP 14.6 mmol/L (5-15)
[2020-07-17] MEDS: Insulin Aspart 100 Units/ML 3 ML Pen SUBCUT SCH (08:23)
[2020-07-17] MEDS ORDERED: Non-Formulary Medication 1 Each (Fluticasone/Umeclidin/Vilanter 1 EACH Blst.W.Dev) INH SCH (09:00)
[2020-07-17] MEDS ORDERED: Levothyroxine 88 MCG Tab PO SCH (09:00)
[2020-07-17] MEDS: Albuterol/Ipratropium 3.0-0.5 MG/3 ML Neb Soln INH SCH ×2 (09:10→20:58)
[2020-07-17] MEDS: Tiotropium Bromide 4 GM Inhalation Spray (2.5mcg/1 dose; 10 doses) INH SCH (09:23)
[2020-07-17] MEDS: Formoterol/Mometasone 100-5 MCG 8.8 GM Inhaler IH SCH ×2 (09:25→20:58)
[2020-07-17] MEDS ORDERED: Sodium Chloride 0.9% 500 ML IV SCH (10:45)
--- NOTE | 2020-07-17 11:21 | PCM.HP.2 ---
H&P History of Present Illness - General Date of Service: 07/17/20 Admit Problem/Dx: Admission Diagnosis/Problem Admission Diagnosis/Problem Acute pancreatitis Source of Information: Patient, Jail Records, Old Records, RN Abdominal Pain Score (Numeric/FACES): 8 - Related Data Allergies/Adverse Reactions: Allergies Allergy/AdvReac Type Severity Reaction Status Date / Time buspirone HCl [From BuSpar] Allergy Rash Verified 07/16/20 13:41 erythromycin base Allergy UNKNOWN Verified 07/16/20 13:41 lisinopril Allergy Cannot Verified 07/16/20 13:41 Remember Penicillins Allergy Throat Verified 07/16/20 13:41 swelling strawberry Allergy Hives Verified 07/16/20 13:41 Home Medications: Home Meds Docusate Sodium [Colace] 100 mg PO BID@0800,1800 01/12/14 [History] Acetaminophen 1,000 mg PO BID 07/26/16 [History] Allopurinol [Zyloprim] 100 mg PO BID 07/26/16 [History] Iron Aspgly&PS/B12/C/Ca/FA/Suc [Niferex-150 Forte] 150 mg PO DAILY 07/26/16 [History] Lurasidone HCl [Latuda] 120 mg PO BEDTIME 07/26/16 [History] Multivit-Min/FA/Lycopene/Lut [Senior Tabs] 1 tab PO DAILY@1800 07/26/16 [History] Sennosides 17.2 mg PO BID 07/26/16 [History] atorvaSTATin [Lipitor] 10 mg PO BEDTIME 11/09/16 [History] Aspirin [Halfprin] 81 mg PO WITHBREAKFAST 01/23/17 [History] Levothyroxine [Synthroid] 88 mcg PO Q2D 01/23/17 [History] Letrozole 2.5 mg PO DAILY 05/09/17 [History] Fexofenadine HCl [Esther Allergy] 180 mg PO DAILY 12/13/17 [History] Levothyroxine [Synthroid] 44 mcg PO Q2D 12/13/17 [History] guaiFENesin/Dextromethorphan [Safetussin DM] 10 ml PO Q4H PRN 03/05/18 [History] Acetaminophen [Tylenol] 650 mg PO Q4H PRN 11/09/18 [History] Nystatin 15 gm TOP TID PRN 11/09/18 [History] buPROPion HCL [Wellbutrin Xl] 300 mg PO DAILY 11/09/18 [History] traMADol HCl [Tramadol HCl] 50 mg PO 11/09/18 [History] Cholecalciferol (Vitamin D3) [D3-1999] 50 mcg PO DAILY 07/16/20 [History] Divalproex Sodium [Depakote ER] 500 mg PO BEDTIME 07/16/20 [History] Fluticasone/Umeclidin/Vilanter [Trelegy Ellipta 100-62.5-25] 1 each INH DAILY 07/16/20 [History] Ipratropium/Albuterol Sulfate [Iprat-Albut 0.5-3(2.5) MG/3 ML] 3 ml IH ASDIRECTED PRN 07/16/20 [History] Ipratropium/Albuterol Sulfate [Iprat-Albut 0.5-3(2.5) MG/3 ML] 3 ml IH BID 07/16/20 [History] Loperamide HCl [Loperamide] 2 mg PO ASDIRECTED PRN 07/16/20 [History] Menthol [Cough Drops] 5 mg MM ASDIRECTED PRN 07/16/20 [History] Metoprolol Tartrate 12.5 mg PO BID 07/16/20 [History] Pantoprazole Sodium [Protonix] 40 mg PO BEDTIME 07/16/20 [History] levoFLOXacin [Levofloxacin] 250 mg PO DAILY 07/16/20 [History] predniSONE [Prednisone] 20 mg PO DAILY 07/16/20 [History] Past Medical History HEENT History: Reports: Allergic Rhinitis, Cataract, Impaired Vision Cardiovascular History: Reports: High Cholesterol, Hypertension Respiratory History: Reports: Asthma, COPD Other Respiratory History: chronic cough Gastrointestinal History: Reports: Chronic Constipation, Diverticulosis, GERD Genitourinary History: Reports: Renal Disease, Urinary Incontinence Other Genitourinary History: CKD III PHOTO PRINTER History: Reports: Endometriosis, Other OB/BYN History: D&C, Endometriosis biopsy 11/28. Musculoskeletal History: Reports: Arthritis, Back Pain, Chronic, Fracture Other Musculoskeletal History: chronic arm, low back and foot pain. SPONDYLOSIS. HYPERURICEMIA Neurological History: Reports: Vertigo Psychiatric History: Reports: Anxiety, Bipolar, Depression Other Psychiatric History: personality disorder. generalized anxiety disorder. 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 breast cancer Dermatologic History: Reports: Other (See Below) Other Dermatologic History: Rashes on left groin - Infectious Disease History Infectious Disease History: Reports: Chicken Pox, Measles - Past Surgical History Head Surgeries/Procedures: Reports: None HEENT Surgical History: Reports: Cataract Surgery, Oral Surgery, Tonsillectomy Cardiovascular Surgical History: Reports: None Respiratory Surgical History: Reports: Other (See Below) Other Respiratory Surgeries/Procedures: right lobectomy GI Surgical History: Reports: Cholecystectomy, Colonoscopy, EGD Female Surgical History: Reports: Breast Biopsy, Section Endocrine Surgical History: Reports: None Other Neurological Surgeries/Procedures: Hx of neck surgery Musculoskeletal Surgical History: Reports: None Other Musculoskeletal Surgeries/Procedures:: Bilateral Leg surgery done Oncologic Surgical History: Reports: Biopsy of Breast, Lobectomy, Lumpectomy Social & Family History - Family History HEENT: Reports: None Cardiac: Reports: Heart Failure Respiratory: Reports: None GI: Reports: None : Reports: None OBGYN: Reports: None Musculoskeletal: Reports: None Neurological: Reports: None Psychiatric: Reports: None Endocrine/Metabolic: Reports: Diabetes, type II Hematologic: Reports: Anemia Immunologic: Reports: None Dermatologic: Reports: None Oncologic: Reports: Lung - Tobacco Use Tobacco Use Status *Q: Never Tobacco User - Caffeine Use Caffeine Use: Reports: Coffee Other Caffeine Use: coke - Recreational Drug Use Recreational Drug Use: No H&P Review of Systems - Review of Systems: Review Of Systems: See Below Free Text/Narrative: Patient sitting in chair and had just finished breakfast during rounds. States she feels terrible. General: Reports: Malaise. Denies: Fever, Chills HEENT: Denies: Headaches Pulmonary: Denies: Shortness of Breath Cardiovascular: Reports: Edema. Denies: Chest Pain Gastrointestinal: Reports: Abdominal Pain (suprapubic), Nausea. Denies: Decreased Appetite, Vomiting Genitourinary: Reports: Dysuria, Frequency Neurological: Denies: Dizziness, Headache Exam - Exam Exam: See Below - Vital Signs Vital Signs: Last Vital Signs Temp 98 F 07/17/20 06:59 Pulse 68 07/17/20 08:17 Resp 16 07/17/20 06:59 BP 111/87 07/17/20 08:17 Pulse Ox 90 L 07/17/20 06:59 Weight: 212 lb 4.8 oz - Exam Quality Assessment: DVT Prophylaxis (lovenox). No: Supplemental Oxygen General: Alert, Oriented (x3), Cooperative HEENT: Conjunctiva Clear. No: Hearing Intact ([place]) Lungs: Clear to Auscultation, Normal Respiratory Effort Cardiovascular: Regular Rhythm, Normal S1, Normal S2, Tachycardia GI/Abdominal Exam: Normal Bowel Sounds, Soft, No Distention, Tender (generalized, worse at lower abdomen) Extremities: No Pedal Edema, Other (No edema to BLE) Skin: Warm, Dry Neurological: Normal Speech Neuro Extensive - Mental Status: Alert, Oriented x3 Psychiatric: Alert, Agitated - Patient Data Lab Results Last 24 hrs: Laboratory Results - last 24 hr 07/16/20 07/16/20 07/16/20 Range/Units 14:10 14:22 14:22 WBC 18.30 H (5.00-10.00) 10^3/uL RBC 4.05 (3.80-5.50) 10^6/uL Hgb 12.1 (12.0-16.0) g/dL Hct 37.7 (37.0-47.0) % MCV 93.1 H (82.0-92.0) fL MCH 29.9 (27.0-31.0) pg MCHC 32.1 (32.0-36.0) g/dL RDW 15.7 H (11.5-14.5) % Plt Count 349 (150-400) 10^3/uL MPV 10.8 H (7.4-10.4) fL Immature Gran % (Auto) 0.3 (0.0-5.0) % Neut % (Auto) 87.6 H (50.0-70.0) % Lymph % (Auto) 9.1 L (20.0-40.0) % [place] % (Auto) 2.6 (2.0-8.0) % Eos % (Auto) 0.2 L (1.0-3.0) % Baso % (Auto) 0.2 (0.0-1.0) % Neut # (Auto) 16.04 H (2.50-7.00) 10^3/uL Lymph # (Auto) 1.66 (1.00-4.00) 10^3/uL [place] # (Auto) 0.48 (0.10-0.80) 10^3/uL Eos # (Auto) 0.04 L (0.10-0.30) 10^3/uL Baso # (Auto) 0.03 (0.00-0.10) 10^3/uL Immature Gran # (Auto) 0.05 (0.00-0.50) 10^3/uL Sodium 133 L (136-145) mmol/L Potassium 4.9 (3.5-5.1) mmol/L Chloride 96 L (98-107) mmol/L Carbon Dioxide 22.4 (21.0-32.0) mmol/L Anion Gap 19.5 H (5-15) mmol/L BUN 23 H (7-18) mg/dL Creatinine 1.45 H (0.51-1.17) mg/dL Est Cr Clr Drug Dosing 25.70 mL/min Estimated GFR (MDRD) 35 mL/min Glucose 165 H (70-140) mg/dL POC Glucose (70-140) mg/dL Calcium 9.4 (8.7-10.3) mg/dL Total Bilirubin 0.4 (0.2-1.0) mg/dL AST 17 (15-37) U/L ALT 19 (14-63) U/L Alkaline Phosphatase 98 (46-116) U/L C-Reactive Protein (0.0-0.9) mg/dL Total Protein 7.4 (6.4-8.2) g/dL Albumin 2.92 L (3.40-5.00) g/dL Triglycerides (30-150) mg/dL Cholesterol (100-200) mg/dL LDL Cholesterol, Calc (0-100) mg/dL HDL Cholesterol (40-60) mg/dL Amylase (25-125) U/L Lipase (73-393) U/L Specimen Type Urinblad Urine Color Yellow (YELLOW) Urine Appearance Cloudy H (CLEAR) Urine pH 6.0 (5.0-9.0) Ur Specific [place] >= 1.030 (1.005-1.030) Urine Protein Negative (NEGATIVE) mg/dL Urine Glucose (UA) Negative (NEGATIVE) mg/dL Urine Ketones Negative (NEGATIVE) mg/dL Urine Occult Blood Negative (NEGATIVE) Urine Nitrite Negative (NEGATIVE) Urine Bilirubin Negative (NEGATIVE) Urine Urobilinogen 0.2 (0.2-1.0) E.U./dL Ur Leukocyte Esterase Trace H (NEGATIVE) Urine RBC 0-5 (0-5) /HPF Urine WBC >100 H (0-5) /HPF Ur Epithelial Cells Moderate H /LPF Amorphous Sediment Moderate H (0/HPF) /HPF Urine Bacteria Moderate H (NONE TO FEW) /HPF SARS CoV-2 RNA Rapid VIV (NEGATIVE) 07/16/20 07/16/20 07/16/20 Range/Units 18:13 21:19 21:48 WBC (5.00-10.00) 10^3/uL RBC (3.80-5.50) 10^6/uL Hgb (12.0-16.0) g/dL Hct (37.0-47.0) % MCV (82.0-92.0) fL MCH (27.0-31.0) pg MCHC (32.0-36.0) g/dL RDW (11.5-14.5) % Plt Count (150-400) 10^3/uL MPV (7.4-10.4) fL Immature Gran % (Auto) (0.0-5.0) % Neut % (Auto) (50.0-70.0) % Lymph % (Auto) (20.0-40.0) % [place] % (Auto) (2.0-8.0) % Eos % (Auto) (1.0-3.0) % Baso % (Auto) (0.0-1.0) % Neut # (Auto) (2.50-7.00) 10^3/uL Lymph # (Auto) (1.00-4.00) 10^3/uL [place] # (Auto) (0.10-0.80) 10^3/uL Eos # (Auto) (0.10-0.30) 10^3/uL Baso # (Auto) (0.00-0.10) 10^3/uL Immature Gran # (Auto) (0.00-0.50) 10^3/uL Sodium (136-145) mmol/L Potassium (3.5-5.1) mmol/L Chloride (98-107) mmol/L Carbon Dioxide (21.0-32.0) mmol/L Anion Gap (5-15) mmol/L BUN (7-18) mg/dL Creatinine (0.51-1.17) mg/dL Est Cr Clr Drug Dosing mL/min Estimated GFR (MDRD) mL/min Glucose (70-140) mg/dL POC Glucose 122 (70-140) mg/dL Calcium (8.7-10.3) mg/dL Total Bilirubin (0.2-1.0) mg/dL AST (15-37) U/L ALT (14-63) U/L Alkaline Phosphatase (46-116) U/L C-Reactive Protein (0.0-0.9) mg/dL Total Protein (6.4-8.2) g/dL Albumin (3.40-5.00) g/dL Triglycerides (30-150) mg/dL Cholesterol (100-200) mg/dL LDL Cholesterol, Calc (0-100) mg/dL HDL Cholesterol (40-60) mg/dL Amylase 26 (25-125) U/L Lipase 68 L (73-393) U/L Specimen Type Urine Color (YELLOW) Urine Appearance (CLEAR) Urine pH (5.0-9.0) Ur Specific [place] (1.005-1.030) Urine Protein (NEGATIVE) mg/dL Urine Glucose (UA) (NEGATIVE) mg/dL Urine Ketones (NEGATIVE) mg/dL Urine Occult Blood (NEGATIVE) Urine Nitrite (NEGATIVE) Urine Bilirubin (NEGATIVE) Urine Urobilinogen (0.2-1.0) E.U./dL Ur Leukocyte Esterase (NEGATIVE) Urine RBC (0-5) /HPF Urine WBC (0-5) /HPF Ur Epithelial Cells /LPF Amorphous Sediment (0/HPF) /HPF Urine Bacteria (NONE TO FEW) /HPF SARS CoV-2 RNA Rapid VIV Negative (NEGATIVE) 07/16/20 07/17/20 07/17/20 Range/Units 21:48 07:30 07:50 WBC 14.71 H (5.00-10.00) 10^3/uL RBC 3.58 L (3.80-5.50) 10^6/uL Hgb 10.8 L (12.0-16.0) g/dL Hct 33.2 L (37.0-47.0) % MCV 92.7 H (82.0-92.0) fL MCH 30.2 (27.0-31.0) pg MCHC 32.5 (32.0-36.0) g/dL RDW 15.4 H (11.5-14.5) % Plt Count 298 (150-400) 10^3/uL MPV 10.5 H (7.4-10.4) fL Immature Gran % (Auto) 0.3 (0.0-5.0) % Neut % (Auto) 67.4 (50.0-70.0) % Lymph % (Auto) 17.7 L (20.0-40.0) % [place] % (Auto) 12.9 H (2.0-8.0) % Eos % (Auto) 1.5 (1.0-3.0) % Baso % (Auto) 0.2 (0.0-1.0) % Neut # (Auto) 9.91 H (2.50-7.00) 10^3/uL Lymph # (Auto) 2.61 (1.00-4.00) 10^3/uL [place] # (Auto) 1.90 H (0.10-0.80) 10^3/uL Eos # (Auto) 0.22 (0.10-0.30) 10^3/uL Baso # (Auto) 0.03 (0.00-0.10) 10^3/uL Immature Gran # (Auto) 0.04 (0.00-0.50) 10^3/uL Sodium (136-145) mmol/L Potassium (3.5-5.1) mmol/L Chloride (98-107) mmol/L Carbon Dioxide (21.0-32.0) mmol/L Anion Gap (5-15) mmol/L BUN (7-18) mg/dL Creatinine (0.51-1.17) mg/dL Est Cr Clr Drug Dosing mL/min Estimated GFR (MDRD) mL/min Glucose (70-140) mg/dL POC Glucose 67 L (70-140) mg/dL Calcium (8.7-10.3) mg/dL Total Bilirubin (0.2-1.0) mg/dL AST (15-37) U/L ALT (14-63) U/L Alkaline Phosphatase (46-116) U/L C-Reactive Protein 12.7 H (0.0-0.9) mg/dL Total Protein (6.4-8.2) g/dL Albumin (3.40-5.00) g/dL Triglycerides (30-150) mg/dL Cholesterol (100-200) mg/dL LDL Cholesterol, Calc (0-100) mg/dL HDL Cholesterol (40-60) mg/dL Amylase (25-125) U/L Lipase (73-393) U/L Specimen Type Urine Color (YELLOW) Urine Appearance (CLEAR) Urine pH (5.0-9.0) Ur Specific [place] (1.005-1.030) Urine Protein (NEGATIVE) mg/dL Urine Glucose (UA) (NEGATIVE) mg/dL Urine Ketones (NEGATIVE) mg/dL Urine Occult Blood (NEGATIVE) Urine Nitrite (NEGATIVE) Urine Bilirubin (NEGATIVE) Urine Urobilinogen (0.2-1.0) E.U./dL Ur Leukocyte Esterase (NEGATIVE) Urine RBC (0-5) /HPF Urine WBC (0-5) /HPF Ur Epithelial Cells /LPF Amorphous Sediment (0/HPF) /HPF Urine Bacteria (NONE TO FEW) /HPF SARS CoV-2 RNA Rapid VVI (NEGATIVE) 07/17/20 Range/Units 07:50 WBC (5.00-10.00) 10^3/uL RBC (3.80-5.50) 10^6/uL Hgb (12.0-16.0) g/dL Hct (37.0-47.0) % MCV (82.0-92.0) fL MCH (27.0-31.0) pg MCHC (32.0-36.0) g/dL RDW (11.5-14.5) % Plt Count (150-400) 10^3/uL MPV (7.4-10.4) fL Immature Gran % (Auto) (0.0-5.0) % Neut % (Auto) (50.0-70.0) % Lymph % (Auto) (20.0-40.0) % [place] % (Auto) (2.0-8.0) % Eos % (Auto) (1.0-3.0) % Baso % (Auto) (0.0-1.0) % Neut # (Auto) (2.50-7.00) 10^3/uL Lymph # (Auto) (1.00-4.00) 10^3/uL [place] # (Auto) (0.10-0.80) 10^3/uL Eos # (Auto) (0.10-0.30) 10^3/uL Baso # (Auto) (0.00-0.10) 10^3/uL Immature Gran # (Auto) (0.00-0.50) 10^3/uL Sodium 138 (136-145) mmol/L Potassium 4.0 (3.5-5.1) mmol/L Chloride 102 (98-107) mmol/L Carbon Dioxide 25.4 (21.0-32.0) mmol/L Anion Gap 14.6 (5-15) mmol/L BUN 23 H (7-18) mg/dL Creatinine 1.20 H (0.51-1.17) mg/dL Est Cr Clr Drug Dosing 31.05 mL/min Estimated GFR (MDRD) 44 mL/min Glucose 84 (70-140) mg/dL POC Glucose (70-140) mg/dL Calcium 8.7 (8.7-10.3) mg/dL Total Bilirubin 0.2 (0.2-1.0) mg/dL AST 20 (15-37) U/L ALT 16 (14-63) U/L Alkaline Phosphatase 73 (46-116) U/L C-Reactive Protein (0.0-0.9) mg/dL Total Protein 6.3 L (6.4-8.2) g/dL Albumin 2.57 L (3.40-5.00) g/dL Triglycerides 73 (30-150) mg/dL Cholesterol 113 (100-200) mg/dL LDL Cholesterol, Calc 41 (0-100) mg/dL HDL Cholesterol 57 (40-60) mg/dL Amylase (25-125) U/L Lipase (73-393) U/L Specimen Type Urine Color (YELLOW) Urine Appearance (CLEAR) Urine pH (5.0-9.0) Ur Specific [place] (1.005-1.030) Urine Protein (NEGATIVE) mg/dL Urine Glucose (UA) (NEGATIVE) mg/dL Urine Ketones (NEGATIVE) mg/dL Urine Occult Blood (NEGATIVE) Urine Nitrite (NEGATIVE) Urine Bilirubin (NEGATIVE) Urine Urobilinogen (0.2-1.0) E.U./dL Ur Leukocyte Esterase (NEGATIVE) Urine RBC (0-5) /HPF Urine WBC (0-5) /HPF Ur Epithelial Cells /LPF Amorphous Sediment (0/HPF) /HPF Urine Bacteria (NONE TO FEW) /HPF SARS CoV-2 RNA Rapid VIV (NEGATIVE) Result Diagrams: 07/17/20 07:50 07/17/20 07:50 Sepsis Event Note - Evaluation Sepsis Screening Result: No Definite Risk - Focused Exam Vital Signs: Vital Signs Temp Pulse Pulse Resp BP BP Pulse Ox 07/17/20 08:17 68 111/87 07/17/20 06:59 98 F 105 H 16 127/72 90 L 07/17/20 03:00 97.2 F 104 H 16 118/95 H 96 07/16/20 22:57 98.7 F 104 H 20 122/75 94 L Problem List Initiated/Reviewed/Updated: Yes Orders Last 24hrs: Active Orders 24 hr Category Date Time Status Patient Status [ADT] Routine ADT 07/16/20 18:02 Active Accu Check [Blood Glucose Check, Bedside] [RC] Care 07/16/20 21:14 Active QIDACANDBED Communication Order [RC] 09,21 Care 07/16/20 20:57 Active Height and Weight [RC] 07 Care 07/16/20 21:08 Active Intake and Output [RC] 1400,2200,0600 Care 07/16/20 21:08 Active Oxygen Therapy [RC] PRN Care 07/16/20 21:08 Active RT Aerosol Therapy [RC] ASDIRECTED Care 07/16/20 21:25 Active Up With Assistance [RC] ASDIRECTED Care 07/16/20 21:08 Active VTE/DVT Education [RC] DAILY Care 07/16/20 21:08 Active Vital Signs [RC] 07,15,23 Care 07/17/20 09:53 Active Heart Healthy Diet [DIET] Diet 07/17/20 Lunch Ordered BASIC METABOLIC PANEL,BMP [CHEM] AM Lab 07/18/20 05:11 Ordered CBC WITH AUTO DIFF [HEME] AM Lab 07/18/20 05:11 Ordered Acetaminophen [Tylenol Extra Strength] Med 07/16/20 21:30 Active 1,000 mg PO BID Albuterol/Ipratropium [DuoNeb 3.0-0.5 MG/3 ML] Med 07/16/20 21:20 Active 3 ml INH ASDIRECTED PRN Albuterol/Ipratropium [DuoNeb 3.0-0.5 MG/3 ML] Med 07/16/20 21:30 Active 3 ml INH BID Aspirin [Halfprin] Med 07/17/20 08:00 Active 81 mg PO WITHBREAKFAST Dextromethorphan/guaiFENesin [Robitussin DM] Med 07/17/20 00:09 Active 10 ml PO Q4H PRN Dextrose 50% in Water Med 07/16/20 21:14 Active 50 ml IVPUSH ASDIRECTED PRN Divalproex Sodium Med 07/17/20 21:00 Active 500 mg PO BEDTIME Docusate Sodium [Colace] Med 07/17/20 08:00 Active 100 mg PO BID@0800,1800 Glucagon,Human Recombinant [GlucaGen] Med 07/16/20 21:14 Active 1 mg IM ASDIRECTED PRN HYDROmorphone [Dilaudid] Med 07/16/20 21:30 Active 1 mg IVPUSH Q4H PRN Levothyroxine [Synthroid] Med 07/17/20 09:00 Active 44 mcg PO Q48H Levothyroxine [Synthroid] Med 07/18/20 09:00 Active 88 mcg PO Q48H Magnesium Hydroxide [Milk of Magnesia] Med 07/16/20 23:32 Active 30 ml PO DAILY PRN Metoprolol Tartrate [Lopressor] Med 07/16/20 21:30 Active 12.5 mg PO BID Mometasone/Formoterol [Dulera 100-5 MCG] Med 07/17/20 09:00 Active 2 puff IH BID Omeprazole Med 07/17/20 21:00 Active 20 mg PO BEDTIME Ondansetron [Zofran] Med 07/16/20 21:31 Active 4 mg IVPUSH Q4H PRN Sodium Chloride 0.9% [Normal Saline] 500 ml Med 07/16/20 18:15 Active IV ASDIRECTED Sodium Chloride 0.9% [Normal Saline] 500 ml Med 07/17/20 10:45 Ordered IV ASDIRECTED Tiotropium Mobile [Spiriva Respimat] Med 07/17/20 09:00 Active 0 gm INH DAILY atorvaSTATin [Lipitor] Med 07/17/20 21:00 Active 10 mg PO BEDTIME buPROPion [Wellbutrin XL] Med 07/17/20 09:00 Active 300 mg PO DAILY cefTRIAXone [Rocephin] Med 07/17/20 10:30 Active 1 gm IVPUSH Q24H traMADol [Ultram] Med 07/17/20 07:00 Active 50 mg PO 07,1999 Isolation [COMM] 09, Oth 07/17/20 09:00 Ordered Isolation [COMM] , Oth 07/17/20 21:00 Ordered Isolation [COMM] , Oth 07/18/20 09:00 Ordered Isolation [COMM] , Oth 07/18/20 21:00 Ordered Isolation [COMM] 09, Oth 07/19/20 09:00 Ordered Isolation [COMM] 09,21 Oth 07/19/20 21:00 Ordered Isolation [COMM] 09, Oth 07/20/20 09:00 Ordered Isolation [COMM] , Oth 07/20/20 21:00 Ordered Isolation [COMM] ,21 Oth 07/21/20 09:00 Ordered Isolation [COMM] , Oth 07/21/20 21:00 Ordered Isolation [COMM] , Oth 07/22/20 09:00 Ordered Code Status [Resuscitation Status] Routine Resus Stat 07/16/20 21:11 Ordered Medication Orders Acetaminophen (Acetaminophen 500 Mg Tab) 1,000 mg PO BID TOMMY Albuterol/Ipratropium (Albuterol/Ipratropium 3.0-0.5 Mg/3 Ml Neb Soln) 3 ml INH ASDIRECTED PRN PRN Reason: Shortness of Breath Albuterol/Ipratropium (Albuterol/Ipratropium 3.0-0.5 Mg/3 Ml Neb Soln) 3 ml INH BID TOMMY Last Admin: 07/17/20 09:10 Dose: 3 ml Documented by: Admin: 07/16/20 22:14 Dose: 3 ml Documented by: BARBIE Aspirin (Aspirin 81 Mg Tab.Ec) 81 mg PO WITHBREAKFAST [facility] Last Admin: 07/17/20 08:16 Dose: 81 mg Documented by: MISAEL Atorvastatin Calcium (Atorvastatin 10 Mg Tab) 10 mg PO BEDTIME [facility] Bupropion HCl (Bupropion 150 Mg Tab.Er) 300 mg PO DAILY [facility] Last Admin: 07/17/20 08:16 Dose: 300 mg Documented by: MISAEL Ceftriaxone Sodium (Ceftriaxone 1 Gm Vial) 1 gm IVPUSH Q24H [facility] Dextrose/Water (50% Dextrose In Water 50 Ml Syringe) 50 ml IVPUSH ASDIRECTED PRN PRN Reason: Hypoglycemia Divalproex Sodium (Divalproex Sodium Delayed-Release 250 Mg Tab.Cr) 500 mg PO BEDTIME [facility] Docusate Sodium (Docusate Sodium 100 Mg Cap) 100 mg PO BID@0800,1800 [facility] Last Admin: 07/17/20 08:16 Dose: 100 mg Documented by: MISAEL Glucagon (Glucagon,Human Recombinant 1 Mg Vial) 1 mg IM ASDIRECTED PRN PRN Reason: Hypoglycemia Guaifenesin/Phenylephrine HCl (Guaifenesin/Dextromethorphan 100-10 Mg/5 Ml Soln 5 Ml Cup) 10 ml PO Q4H PRN PRN Reason: Cough Last Admin: 07/17/20 04:29 Dose: 10 ml Documented by: Admin: 07/17/20 00:20 Dose: 10 ml Documented by: BARBIE Hydromorphone HCl (Hydromorphone 1 Mg/Ml Syringe) 1 mg IVPUSH Q4H PRN PRN Reason: Abdominal Pain Sodium Chloride (Normal Saline) 500 mls @ 100 mls/hr IV ASDIRECTED TOMMY Sodium Chloride (Normal Saline) 500 mls @ 50 mls/hr IV ASDIRECTED [facility] Levothyroxine Sodium (Levothyroxine 88 Mcg Tab) 44 mcg PO Q48H [facility] Last Admin: 07/17/20 08:16 Dose: 44 mcg Documented by: MISAEL Levothyroxine Sodium (Levothyroxine 88 Mcg Tab) 88 mcg PO Q48H [facility] Magnesium Hydroxide (Magnesium Hydroxide 400 Mg/5 Ml Susp 30 Ml Cup) 30 ml PO DAILY PRN PRN Reason: Constipation Last Admin: 07/17/20 00:01 Dose: 30 ml Documented by: BARBIE Metoprolol Tartrate (Metoprolol Tartrate 25 Mg Tab) 12.5 mg PO BID [facility] Last Admin: 07/17/20 08:17 Dose: 12.5 mg Documented by: Admin: 07/16/20 22:13 Dose: 12.5 mg Documented by: BARBIE Mometasone Furoate/Formoterol Fumar (Formoterol/Mometasone 100-5 Mcg 8.8 Gm Inhaler) 2 puff IH BID [facility] Last Admin: 07/17/20 09:25 Dose: 2 puff Documented by: MISAEL Omeprazole (Omeprazole 20 Mg Cap.Cr) 20 mg PO BEDTIME [facility] Ondansetron HCl (Ondansetron 4 Mg/2 Ml Sdv) 4 mg IVPUSH Q4H PRN PRN Reason: Nausea/Vomiting Tiotropium Mobile (Tiotropium Mobile 4 Gm Inhalation Gilman (2.5mcg/1 Dose; 10 Doses)) 0 gm INH DAILY [facility] Last Admin: 07/17/20 09:23 Dose: 2 puff Documented by: MISAEL Tramadol HCl (Tramadol 50 Mg Tab) 50 mg PO 699,[id number] [facility] Last Admin: 07/17/20 06:16 Dose: 50 mg Documented by: KASSIE Assessment/Plan Comment:: HPI summary: This is a 75 yo WF who presented to the ED with a history of a fall two days prior and lower abdominal pain. Patient resides at [facility] and was seen by the rounding provider that same day d/t nursing concerns of falls, coughing, and lung crackling. On 07/15/20, she had outpatient labs that were notable for a WBC of 20.1 with neutrophilia, CRP 156.8, and a chest x-ray pending. She was given levaquin 250 mg po and prednisone 20 mg po x 1 while awaiting the CXR results. CXR negative for acute processes. On 07/16/20, rounding provider ordered a UA as well, which was notable for negative nitrites, moderate bacteria; culture pending. Rounding provider was concerned about underlying abdominal pathology and so recommended ED evaluation, which patient eventually agreed to. ED course: Patient had similar work-up completed in the ED as noted above with the f ollowing pertinent findings. -WBC 18.3 w/neutrophilia -Na 133 -Ct 1.45, GFR 35 -LFTs unremarkable -UA positive for moderate bacteria, negative nitrites; culture pending -Glucose 165 -CXR negative for acute processes, interstitial fibrosis -CT abd/pelvis noted uncomplicated acute pancreatitis involving the tail of the pancreas, common bile duct normal in caliber, cholecystectomy, sigmoid diverticulosis (no evidence of diverticulitis) -IV fluid 1 liter bolus given Hospital course: 07/16/20: Upon arrival to the med-surg floor, work-up proceeded with the addition of a lipase (68), amylase (26), and CRP (12.7) level as well as NS at 100 mL/hr, zofran prn for nausea, hydromorphone prn for pain, soft/low fat/low residue diet. No antibiotics were given. Low dose SS insulin. CBC, CMP, lipids ordered for AM. 07/17/20: No calls overnight. Nursing notes no complaints of nausea/vomiting, eating well, intermittent suprapubic pain. No prn medications given. Patient up to chair upon entering room. Seems fidgety and complains of generalized abdominal pain and nausea with breakfast tray almost cleared. VS: T 98, P 105, BP 127/72, RR 16, O2 sat 90% on RA. BS active x 4, no distention, tenderness elicited over suprapubic area and epigastric area. WBC 14.7 w/o neutrophilia, Hgb 10.8, glucose 122/67, Ct 1.20, Trigs 73, LDL 41. Hospitalization problems and plan: # Possible acute pancreatitis based on imaging findings only. # Possible UTI. - Resume heart healthy, LUCIA, cut up meat diet - Monitor for increased epigastric pain and nausea/vomiting - Continue hydromorphone and zofran IV prn - Decrease IVFs to NS at 50 mL/hr - Accurate I & O - DC SS low dose insulin - CBC, BMP in AM - Cancel urine culture collected in ER as outpatient culture will likely give a prelim tomorrow - Rocephin 1 gm IV daily Chronic, stable conditions: # HTN. Continue lopressor 12.5 mg BID. # Simple chronic bronchitis/interstitial fibrosis. Continue DuoNebs BID and prn, Dulera 2 puffs BID, Spiriva 1 puff daily. # Chronic allergic rhinitis. Continue Eshter 60 mg daily. # HFpEF. ECHO (2017) noted EF 75%, hyperdynamic left ventricular systolic function, grade 1 diastolic dysfunction. # Obesity. # Hyperuricemia. Continue allopurinol 100 mg BID. # HLD. Continue lipitor 10 mg at HS. # Hypothyroidism. Continue levothyroxine 44 mcg and 88 mcg every other day. TSH 3.53 (12/2019). # Prediabetes. A1c 5.4 (07/15/20). # VitD deficiency. Continue VitD 50 mcg daily. # Bipolar 2 disorder. Continue buproprion XL 300 mg daily, Divalproex 500 mg at HS. Holding Latuda d/t unavailability. # Anemia d/t CKD stage 3b. Continue iron 150 mg daily. # Atrophic gastritis. Continue omeprazole 20 mg daily. # Diverticular disease of large intestine. # Constipation d/t opioid therapy. Continue colace 100 mg BID, MOM 30 mL daily prn, Senna 1 tab BID. # CKD stage 3b. Followed by nephrology. # Chronic pain syndrome. Continue tylenol 1000 mg BID, Tramadol 50 mg BID. # Endometrial adenocarcinoma. # Non-small cell cancer of left and right lung. # Estrogen receptor positive left breast cancer. Holding letrozole d/t unavailability. Followed by oncology. Hospitalization details: # FEN: NS at 50 mL/hr, electrolytes wnl, heart healthy/LUCIA/cut up meat. # PPX: On lovenox 30 mg SQ daily. # Code status: Full Code. Verified with patient and NH. # Emergency contact: Zeynep Sesay, sister. # Disposition: Patient will remain in observation status for one more day with anticipated discharge back to [facility] tomorrow pending no pain/nausea. - Mortality Measure Prognosis:: Good
[2020-07-17] MEDS ORDERED: Non-Formulary Medication 1 Each (Fexofenadine Hcl 60 MG Tablet) PO SCH (11:30)
[2020-07-17] MEDS: Acetaminophen 500 MG Tab PO SCH ×2 (13:32→20:56)
[2020-07-17] MEDS: Allopurinol 100 MG Tab PO SCH ×2 (13:34→20:57)
[2020-07-17] MEDS: Iron Polysaccharides Complex 150 MG Cap PO SCH (13:34)
[2020-07-17] MEDS: Cholecalciferol (Vitamin D3) 25 MCG Tab PO SCH (13:34)
[2020-07-17] MEDS: Enoxaparin 30 MG/0.3 ML Syringe SUBCUT SCH (13:35)
[2020-07-17] MEDS: cefTRIAXone 1 GM Vial IVPUSH SCH (13:35)
[2020-07-17] MEDS ORDERED: Omeprazole 20 MG Cap.CR PO SCH (21:00)
[2020-07-17] MEDS ORDERED: Lurasidone Hcl [Latuda] 120 MG Tablet PO SCH (21:00)
[2020-07-17] MEDS ORDERED: atorvaSTATin 10 MG Tab PO SCH (21:00)
[2020-07-17] MEDS ORDERED: Divalproex Sodium Delayed-Release 250 MG Tab.CR PO SCH (21:00)
[2020-07-18] MEDS: guaiFENesin/Dextromethorphan 100-10 MG/5 ML Soln 5 ML Cup PO PRN (02:32)
[2020-07-18] MEDS: traMADol 50 MG Tab PO SCH (06:02)
[2020-07-18 08:10] LABS: ANION GAP 13.2 mmol/L (5-15)
[2020-07-18] MEDS: buPROPion 150 MG Tab.ER PO SCH (08:10)
[2020-07-18] MEDS: Acetaminophen 500 MG Tab PO SCH (08:11)
[2020-07-18] MEDS: Aspirin 81 MG Tab.EC PO SCH (08:11)
[2020-07-18] MEDS: Cholecalciferol (Vitamin D3) 25 MCG Tab PO SCH (08:11)
[2020-07-18] MEDS: Iron Polysaccharides Complex 150 MG Cap PO SCH (08:12)
[2020-07-18] MEDS: Allopurinol 100 MG Tab PO SCH (08:12)
[2020-07-18] MEDS: Metoprolol Tartrate 25 MG Tab PO SCH (08:12)
[2020-07-18] MEDS: Docusate Sodium 100 MG Cap PO SCH (08:12)
[2020-07-18 08:13] VITALS: BP 133/69; PULSE 105
[2020-07-18] MEDS: Formoterol/Mometasone 100-5 MCG 8.8 GM Inhaler IH SCH (08:15)
[2020-07-18] MEDS: Tiotropium Bromide 4 GM Inhalation Spray (2.5mcg/1 dose; 10 doses) INH SCH (08:53)
[2020-07-18] MEDS ORDERED: Levothyroxine 88 MCG Tab PO SCH (09:00)
[2020-07-18] MEDS: Albuterol/Ipratropium 3.0-0.5 MG/3 ML Neb Soln INH SCH (09:41)
[2020-07-18] MEDS: cefTRIAXone 1 GM Vial IVPUSH SCH (09:50)
[2020-07-18] MEDS: Enoxaparin 30 MG/0.3 ML Syringe SUBCUT SCH ×2 (09:50→11:15)
--- NOTE | 2020-07-18 09:51 | PCM.DCSUM1 ---
Discharge Summary - Hospital Course Free Text/Narrative:: Date of admission: 07/16/20 Date of discharge: 07/18/20 Admission diagnoses: # Possible acute pancreatitis based on imaging findings only # Possible UTI # Leukocytosis Discharge diagnoses: # Acute pancreatitis based solely on CT imaging study only, no labs or clinical symptoms to support, resolved # UTI, resolving # Leukocytosis, resolving Chronic, stable conditions: # HTN. # Simple chronic bronchitis/interstitial fibrosis. # Chronic allergic rhinitis. # HFpEF. # Obesity. # Hyperuricemia. # HLD. # Hypothyroidism. # Prediabetes. # VitD deficiency. # Bipolar 2 disorder. # Anemia d/t CKD stage 3b. # Atrophic gastritis. # Diverticular disease of large intestine. # Constipation d/t opioid therapy. # CKD stage 3b. # Chronic pain syndrome. # Endometrial adenocarcinoma. # Non-small cell cancer of left and right lung. # Estrogen receptor positive left breast cancer. Consultations: None Procedures: None HPI summary: This is a 75 yo WF who presented to the ED with a history of a fall two days prior and lower abdominal pain. Patient resides at [facility] and was seen by the rounding provider that same day d/t nursing concerns of falls, coughing, and lung crackling. On 07/15/20, she had outpatient labs that were notable for a WBC of 20.1 with neutrophilia, CRP 156.8, and a chest x-ray pending. She was given levaquin 250 mg po and prednisone 20 mg po x 1 while awaiting the CXR results. CXR negative for acute processes. On 07/16/20, rounding provider ordered a UA as well, which was notable for negative nitrites, moderate bacteria; culture pending. Rounding provider was concerned about underlying abdominal pathology and so recommended ED evaluation, which patient eventually agreed to. ED course: Patient had similar work-up completed in the ED as noted above with the following pertinent findings. -WBC 18.3 w/neutrophilia -Na 133 -Ct 1.45, GFR 35 -LFTs unremarkable -UA positive for moderate bacteria, negative nitrites; culture pending -Glucose 165 -CXR negative for acute processes, interstitial fibrosis -CT abd/pelvis noted uncomplicated acute pancreatitis involving the tail of the pancreas, common bile duct normal in caliber, cholecystectomy, sigmoid diverticulosis (no evidence of diverticulitis) -IV fluid 1 liter bolus given Hospital course: 07/16/20: Upon arrival to the med-surg floor, work-up proceeded with the addition of a lipase (68), amylase (26), and CRP (12.7) level as well as NS at 100 mL/hr, zofran prn for nausea, hydromorphone prn for pain, soft/low fat/low residue diet. No antibiotics were given. Low dose SS insulin. CBC, CMP, lipids ordered for AM. 07/17/20: No calls overnight. Nursing notes no complaints of nausea/vomiting, eating well, intermittent suprapubic pain. No prn medications given. Patient up to chair upon entering room. Seems fidgety and complains of generalized abdominal pain and nausea with breakfast tray almost cleared. VS: T 98, P 105, BP 127/72, RR 16, O2 sat 90% on RA. BS active x 4, no distention, tenderness elicited over suprapubic area and epigastric area. WBC 14.7 w/o neutrophilia, Hgb 10.8, glucose 122/67, Ct 1.20, Trigs 73, LDL 41. She was initiated on Rocephin 1 gm IV daily for the possible UTI. She continued with IV fluids of NS at 50 mL/hr. She resumed her home diet. 07/18/20: No calls overnight. Saline locked the evening prior. Patient able to tolerate her normal diet w/o nausea, vomiting, or abdominal pain. Patient continues to note suprapubic pain and dysuria. VS: T 97.6 F, HR 96, BP 114/66, RR 20, O2 sat 93% on RA. WBC 11.5 w/o neutrophilia, Hgb 9.9, Ct 1.09, GFR 49, Na 138, K 4.1, CrCl 34.2. [place] outpatient urine culture still pending at time of discharge. Discharge and follow-up recommendations: - Discharge to [facility]. - Medication changes at discharge: - Discontinue prednisone and levaquin - Keflex 500 mg po BID x 3 days (start on 07/19/20 AM) - Follow-up with Dr. Inga Molina or Devi Ramirez PA-C on next prison rounds - Pending results: - Urine culture in [facility] chart -Considerations at follow-up: - Follow-up scan regarding the acute pancreatitis since she was otherwise clinically asymptomatic there would be concern of possible chronic etiology vs malignancy. - Discharge Data Discharge Date: 07/18/20 Discharge Disposition: DC/Tfer to [facility] Condition: Good - Referral to Home Health Primary Care Physician: Inga Molina MD - Patient Instructions Diet, Other: LUCIA, meat cut up, mechanical soft Activity: As Tolerated (with assistance) Notify Provider of: Fever, Increased Pain, Nausea and/or Vomiting Other/Special Instructions: Please ensure Devi Ramirez PA-C follows up on the urine culture she ordered from 07/16/20. It was not back at the time of discharge. - Discharge Plan *PRESCRIPTION DRUG MONITORING PROGRAM REVIEWED*: Not Applicable *COPY OF PRESCRIPTION DRUG MONITORING REPORT IN PATIENT TARAN: Not Applicable Prescriptions/Med Rec: cephALEXin [Keflex] 500 mg PO Q12H 3 Days #6 cap Home Medications: Home Meds Docusate Sodium [Colace] 100 mg PO BID@0800,1800 01/12/14 [History] Allopurinol [Zyloprim] 100 mg PO BID 07/26/16 [History] Iron Aspgly&PS/B12/C/Ca/FA/Suc [Niferex-150 Forte] 150 mg PO DAILY 07/26/16 [History] Lurasidone HCl [Latuda] 120 mg PO BEDTIME 07/26/16 [History] Multivit-Min/FA/Lycopene/Lut [Senior Tabs] 1 tab PO DAILY@1800 07/26/16 [History] Sennosides 17.2 mg PO BID 07/26/16 [History] atorvaSTATin [Lipitor] 10 mg PO BEDTIME 11/09/16 [History] Aspirin [Halfprin] 81 mg PO WITHBREAKFAST 01/23/17 [History] Levothyroxine [Synthroid] 88 mcg PO Q2D 01/23/17 [History] Letrozole 2.5 mg PO DAILY 05/09/17 [History] Fexofenadine HCl [Esther Allergy] 180 mg PO DAILY 12/13/17 [History] Levothyroxine [Synthroid] 44 mcg PO Q2D 12/13/17 [History] guaiFENesin/Dextromethorphan [Safetussin DM] 10 ml PO Q4H PRN 03/05/18 [History] Nystatin 15 gm TOP TID PRN 11/09/18 [History] buPROPion HCL [Wellbutrin Xl] 300 mg PO DAILY 11/09/18 [History] traMADol HCl [Tramadol HCl] 50 mg PO 699,199911/09/18 [History] Cholecalciferol (Vitamin D3) [D3-1999] 50 mcg PO DAILY 07/16/20 [History] Divalproex Sodium [Depakote ER] 500 mg PO BEDTIME 07/16/20 [History] Fluticasone/Umeclidin/Vilanter [Trelegy Ellipta 100-62.5-25] 1 each INH DAILY 07/16/20 [History] Ipratropium/Albuterol Sulfate [Iprat-Albut 0.5-3(2.5) MG/3 ML] 3 ml IH ASDIRECTED PRN 07/16/20 [History] Ipratropium/Albuterol Sulfate [Iprat-Albut 0.5-3(2.5) MG/3 ML] 3 ml IH BID 07/16/20 [History] Loperamide HCl [Loperamide] 2 mg PO ASDIRECTED PRN 07/16/20 [History] Menthol [Cough Drops] 5 mg MM ASDIRECTED PRN 07/16/20 [History] Metoprolol Tartrate 12.5 mg PO BID 07/16/20 [History] Pantoprazole Sodium [Protonix] 40 mg PO BEDTIME 07/16/20 [History] Acetaminophen 1,000 mg PO BID #0 07/18/20 [Rx] Acetaminophen [Tylenol] 650 mg PO Q4H PRN #0 07/18/20 [Rx] cephALEXin [Keflex] 500 mg PO Q12H 3 Days #6 cap 07/18/20 [Rx] Forms: ED Department Discharge Referrals: Inga Molina MD [Primary Care Provider] - (Follow-up on next prison rounds with Dr. Xiong or Devi Ramirez PA-C) - Discharge Summary/Plan Comment DC Time >30 min.: Yes - General Info Date of Service: 07/18/20 Functional Status: Reports: Pain Controlled, Tolerating Diet, Urinating. Denies: New Symptoms - Review of Systems General: Denies: Fever, Chills HEENT: Denies: Headaches Pulmonary: Denies: Shortness of Breath Cardiovascular: Denies: Chest Pain, Edema Gastrointestinal: Reports: Abdominal Pain (suprapubic). Denies: Constipation, Diarrhea, Nausea, Vomiting Genitourinary: Reports: Dysuria Neurological: Denies: Dizziness, Headache - Patient Data Vitals - Most Recent: Last Vital Signs Temp 97.6 F 07/18/20 06:39 Pulse 105 H 07/18/20 08:12 Resp 20 07/18/20 06:39 BP 133/69 07/18/20 08:12 Pulse Ox 93 L 07/18/20 06:39 Weight - Most Recent: 213 lb 9.6 oz I&O - Last 24 hours: Intake & Output 07/17/20 07/18/20 07/18/20 22:59 06:59 14:59 Intake Total 1429 383 Output Total 1 Balance 1428 383 Lab Results - Last 24 hrs: Laboratory Results - last 24 hr 07/17/20 07/17/20 07/18/20 Range/Units 11:29 17:53 07:43 WBC 11.49 H (5.00-10.00) 10^3/uL RBC 3.27 L (3.80-5.50) 10^6/uL Hgb 9.9 L (12.0-16.0) g/dL Hct 30.1 L (37.0-47.0) % MCV 92.0 (82.0-92.0) fL MCH 30.3 (27.0-31.0) pg MCHC 32.9 (32.0-36.0) g/dL RDW 15.3 H (11.5-14.5) % Plt Count 277 (150-400) 10^3/uL MPV 10.6 H (7.4-10.4) fL Immature Gran % (Auto) 0.3 (0.0-5.0) % Neut % (Auto) 66.6 (50.0-70.0) % Lymph % (Auto) 17.4 L (20.0-40.0) % Nye % (Auto) 11.5 H (2.0-8.0) % Eos % (Auto) 3.9 H (1.0-3.0) % Baso % (Auto) 0.3 (0.0-1.0) % Neut # (Auto) 7.66 H (2.50-7.00) 10^3/uL Lymph # (Auto) 2.00 (1.00-4.00) 10^3/uL Nye # (Auto) 1.32 H (0.10-0.80) 10^3/uL Eos # (Auto) 0.45 H (0.10-0.30) 10^3/uL Baso # (Auto) 0.03 (0.00-0.10) 10^3/uL Immature Gran # (Auto) 0.03 (0.00-0.50) 10^3/uL Sodium (136-145) mmol/L Potassium (3.5-5.1) mmol/L Chloride (98-107) mmol/L Carbon Dioxide (21.0-32.0) mmol/L Anion Gap (5-15) mmol/L BUN (7-18) mg/dL Creatinine (0.51-1.17) mg/dL Est Cr Clr Drug Dosing mL/min Estimated GFR (MDRD) mL/min Glucose (70-140) mg/dL POC Glucose 104 96 (70-140) mg/dL Calcium (8.7-10.3) mg/dL 07/18/20 Range/Units 07:43 WBC (5.00-10.00) 10^3/uL RBC (3.80-5.50) 10^6/uL Hgb (12.0-16.0) g/dL Hct (37.0-47.0) % MCV (82.0-92.0) fL MCH (27.0-31.0) pg MCHC (32.0-36.0) g/dL RDW (11.5-14.5) % Plt Count (150-400) 10^3/uL MPV (7.4-10.4) fL Immature Gran % (Auto) (0.0-5.0) % Neut % (Auto) (50.0-70.0) % Lymph % (Auto) (20.0-40.0) % Nye % (Auto) (2.0-8.0) % Eos % (Auto) (1.0-3.0) % Baso % (Auto) (0.0-1.0) % Neut # (Auto) (2.50-7.00) 10^3/uL Lymph # (Auto) (1.00-4.00) 10^3/uL Nye # (Auto) (0.10-0.80) 10^3/uL Eos # (Auto) (0.10-0.30) 10^3/uL Baso # (Auto) (0.00-0.10) 10^3/uL Immature Gran # (Auto) (0.00-0.50) 10^3/uL Sodium 138 (136-145) mmol/L Potassium 4.1 (3.5-5.1) mmol/L Chloride 102 (98-107) mmol/L Carbon Dioxide 26.9 (21.0-32.0) mmol/L Anion Gap 13.2 (5-15) mmol/L BUN 17 (7-18) mg/dL Creatinine 1.09 (0.51-1.17) mg/dL Est Cr Clr Drug Dosing 34.18 mL/min Estimated GFR (MDRD) 49 mL/min Glucose 89 (70-140) mg/dL POC Glucose (70-140) mg/dL Calcium 8.6 L (8.7-10.3) mg/dL Med Orders - Current: Current Medications Acetaminophen (Acetaminophen 500 Mg Tab) 1,000 mg PO BID [facility] Last Admin: 07/18/20 08:11 Dose: 1,000 mg Documented by: Albuterol/Ipratropium (Albuterol/Ipratropium 3.0-0.5 Mg/3 Ml Neb Soln) 3 ml INH ASDIRECTED PRN PRN Reason: Shortness of Breath Albuterol/Ipratropium (Albuterol/Ipratropium 3.0-0.5 Mg/3 Ml Neb Soln) 3 ml INH BID [facility] Last Admin: 07/18/20 09:41 Dose: 3 ml Documented by: Allopurinol (Allopurinol 100 Mg Tab) 100 mg PO BID [facility] Last Admin: 07/18/20 08:12 Dose: 100 mg Documented by: Aspirin (Aspirin 81 Mg Tab.Ec) 81 mg PO WITHBREAKFAST [facility] Last Admin: 07/18/20 08:11 Dose: 81 mg Documented by: Atorvastatin Calcium (Atorvastatin 10 Mg Tab) 10 mg PO BEDTIME [facility] Last Admin: 07/17/20 20:56 Dose: 10 mg Documented by: Bupropion HCl (Bupropion 150 Mg Tab.Er) 300 mg PO DAILY [facility] Last Admin: 07/18/20 08:10 Dose: 300 mg Documented by: Ceftriaxone Sodium (Ceftriaxone 1 Gm Vial) 1 gm IVPUSH Q24H [facility] Last Admin: 07/17/20 13:35 Dose: 1 gm Documented by: Cholecalciferol (Cholecalciferol (Vitamin D3) 25 Mcg Tab) 50 mcg PO DAILY [facility] Last Admin: 07/18/20 08:11 Dose: 50 mcg Documented by: Dextrose/Water (50% Dextrose In Water 50 Ml Syringe) 50 ml IVPUSH ASDIRECTED PRN PRN Reason: Hypoglycemia Divalproex Sodium (Divalproex Sodium Delayed-Release 250 Mg Tab.Cr) 500 mg PO BEDTIME [facility] Last Admin: 07/17/20 20:56 Dose: 500 mg Documented by: Docusate Sodium (Docusate Sodium 100 Mg Cap) 100 mg PO BID@0800,1800 [facility] Last Admin: 07/18/20 08:12 Dose: 100 mg Documented by: Enoxaparin Sodium (Enoxaparin 30 Mg/0.3 Ml Syringe) 30 mg SUBCUT Q24H [facility] Last Admin: 07/17/20 13:35 Dose: 30 mg Documented by: Glucagon (Glucagon,Human Recombinant 1 Mg Vial) 1 mg IM ASDIRECTED PRN PRN Reason: Hypoglycemia Guaifenesin/Phenylephrine HCl (Guaifenesin/Dextromethorphan 100-10 Mg/5 Ml Soln 5 Ml Cup) 10 ml PO Q4H PRN PRN Reason: Cough Last Admin: 07/18/20 02:32 Dose: 10 ml Documented by: Hydromorphone HCl (Hydromorphone 1 Mg/Ml Syringe) 1 mg IVPUSH Q4H PRN PRN Reason: Abdominal Pain Levothyroxine Sodium (Levothyroxine 88 Mcg Tab) 44 mcg PO Q48H [facility] Last Admin: 07/17/20 08:16 Dose: 44 mcg Documented by: Levothyroxine Sodium (Levothyroxine 88 Mcg Tab) 88 mcg PO Q48H [facility] Last Admin: 07/18/20 08:11 Dose: 88 mcg Documented by: Magnesium Hydroxide (Magnesium Hydroxide 400 Mg/5 Ml Susp 30 Ml Cup) 30 ml PO DAILY PRN PRN Reason: Constipation Last Admin: 07/17/20 00:01 Dose: 30 ml Documented by: Metoprolol Tartrate (Metoprolol Tartrate 25 Mg Tab) 12.5 mg PO BID [facility] Last Admin: 07/18/20 08:12 Dose: 12.5 mg Documented by: Mometasone Furoate/Formoterol Fumar (Formoterol/Mometasone 100-5 Mcg 8.8 Gm Inhaler) 2 puff IH BID [facility] Last Admin: 07/18/20 08:15 Dose: 2 puff Documented by: Non-Formulary Medication (Fexofenadine Hcl) 180 mg PO DAILY [facility] Omeprazole (Omeprazole 20 Mg Cap.Cr) 20 mg PO BEDTIME [facility] Last Admin: 07/17/20 20:57 Dose: 20 mg Documented by: Ondansetron HCl (Ondansetron 4 Mg/2 Ml Sdv) 4 mg IVPUSH Q4H PRN PRN Reason: Nausea/Vomiting Polysaccharide Iron Complex (Iron Polysaccharides Complex 150 Mg Cap) 150 mg PO DAILY [facility] Last Admin: 07/18/20 08:12 Dose: 150 mg Documented by: Senna/Docusate Sodium (Docusate Sodium/Sennosides 50-8.6 Mg Tab) 2 tab PO BID [facility] Last Admin: 07/18/20 08:12 Dose: 2 tab Documented by: Tiotropium Jackson (Tiotropium Jackson 4 Gm Inhalation [place] (2.5mcg/1 Dose; 10 Doses)) 0 gm INH DAILY [facility] Last Admin: 07/18/20 08:53 Dose: 2 puff Documented by: Tramadol HCl (Tramadol 50 Mg Tab) 50 mg PO [facility] Last Admin: 07/18/20 06:02 Dose: 50 mg Documented by: Discontinued Medications Acetaminophen (Acetaminophen 325 Mg Tab) 650 mg PO Q4H PRN PRN Reason: Pain Sodium Chloride (Normal Saline) 1,000 mls @ 999 mls/hr IV .BOLUS ONE Stop: 07/16/20 14:50 Last Admin: 07/16/20 15:00 Dose: 999 mls/hr Documented by: Sodium Chloride (Normal Saline) 50 mls @ 200 mls/min IV ASDIRECTED [facility] Last Admin: 07/16/20 16:58 Dose: 200 mls/min Documented by: Sodium Chloride (Normal Saline) 500 mls @ 100 mls/hr IV ASDIRECTED TOMMY Sodium Chloride (Normal Saline) 1,000 mls @ 100 mls/hr IV ASDIRECTED TOMMY Last Infusion: 07/17/20 10:30 Dose: 50 mls/hr Documented by: Sodium Chloride (Normal Saline) 500 mls @ 50 mls/hr IV ASDIRECTED TOMMY Stop: 07/18/20 00:46 Insulin Aspart (Insulin Aspart 100 Units/Ml 3 Ml Pen) 0 unit SUBCUT WITHMEALSANDBED TOMMY; Protocol Last Admin: 07/17/20 08:23 Dose: Not Given Documented by: Iopamidol (Iopamidol 755 Mg/Ml 75 Ml Bottle) 75 ml IVPUSH ONETIME ONE Stop: 07/16/20 16:57 Last Admin: 07/16/20 16:57 Dose: 75 ml Documented by: Non-Formulary Medication (Fluticasone/Umeclidin/Vilanter) 1 each INH DAILY [facility] Lurasidone Hcl [ Latuda] 120 Mg Tablet 120 mg PO BEDTIME TOMMY - Exam Quality Assessment: Reports: DVT Prophylaxis (Lovenox). Denies: Supplemental Oxygen General: Reports: Alert, Oriented, Cooperative, No Acute Distress Lungs: Reports: Clear to Auscultation (left lobes and RLL clear throughout), Normal Respiratory Effort, Rhonchi (RUL, clears with coughing) Cardiovascular: Reports: Regular Rate, Regular Rhythm, No Murmurs GI/Abdominal Exam: Normal Bowel Sounds, Soft, No Distention, Tender (lower abdomen) Extremities: No Pedal Edema Skin: Reports: Warm, Dry Neurological: Reports: Normal Speech Psy/Mental Status: Reports: Alert, Normal Affect, Normal Mood
== END 2020-07-18 12:00 ==
LOC: KA.ED 13:18 → KA.MS 18:02
PROVIDERS: ADMIT Nurse Practitioner Family; ATTEND Family Medicine
DX: K85.90 Acute pancreatitis without necrosis or infection, unspecified (principal); N39.0 Urinary tract infection, site not specified; D72.829 Elevated white blood cell count, unspecified; J30.9 Allergic rhinitis, unspecified; I13.0 Hypertensive heart and chronic kidney disease with heart failure and stage 1 through stage 4 chronic kidney disease, or unspecified chronic kidney disease; I50.30 Unspecified diastolic (congestive) heart failure; E66.9 Obesity, unspecified; E79.0 Hyperuricemia without signs of inflammatory arthritis and tophaceous disease; E78.5 Hyperlipidemia, unspecified; E03.9 Hypothyroidism, unspecified; E55.9 Vitamin D deficiency, unspecified; N18.32 Chronic kidney disease, stage 3b; D63.1 Anemia in chronic kidney disease; K57.30 Diverticulosis of large intestine without perforation or abscess without bleeding; K59.03 Drug induced constipation; K29.40 Chronic atrophic gastritis without bleeding; G89.4 Chronic pain syndrome; C54.1 Malignant neoplasm of endometrium; Z20.822 Contact with and (suspected) exposure to COVID-19
CPT/HCPCS: 36415; 71046; 74177; 80048; 80053; 80061; 81001; 82150; 82947; 83690; 85025; 86140; 87086; 94640; 96372; 96374; 96376; 99284; 99285-25; A9270-GY; G0378; J0696; J1650; J7030; J7620-GY; Q9967; U0002

== ENCOUNTER 2020-11-04 10:49 | Inpatient (IN) | payer MEDICARE, MEDICAID ==
[2020-11-04] MEDS ORDERED: Sodium Chloride 0.9% 10 ML Syringe FLUSH PRN (15:38)
[2020-11-04] MEDS ORDERED: Acetaminophen 325 MG Tab PO PRN (16:07)
[2020-11-04 16:47] LABS: CHLORIDE,CL 96 mmol/L (98-107); SODIUM,NA 133 mmol/L (136-145)
[2020-11-04] MEDS ORDERED: Levofloxacin/Dextrose 5%-Water 100 ML IV ONE (17:19)
[2020-11-04] MEDS: Levofloxacin/Dextrose 5%-Water 250 MG in Premix Bag 1 BAG IV SCH (17:28)
[2020-11-04] MEDS: Dextrose 5%-0.45% NaCl 1,000 ML IV SCH ×2 (17:28→19:37)
[2020-11-04] MEDS: Levofloxacin/Dextrose 5%-Water 500 MG in Premix Bag 1 BAG IV SCH (18:30)
[2020-11-04] MEDS: Acetaminophen 500 MG Tab PO SCH (20:47)
[2020-11-04] MEDS: traMADol 50 MG Tab PO SCH (20:47)
[2020-11-04] MEDS: DIVALPROEX SODIUM 500 MG PO SCH (20:47)
[2020-11-04] MEDS: Pantoprazole 40 MG Tab.CR PO SCH (20:48)
[2020-11-04] MEDS: LURASIDONE 80 MG PO SCH (20:48)
[2020-11-04] MEDS: Docusate Sodium 100 MG Cap PO SCH (20:48)
[2020-11-04] MEDS ORDERED: cefTRIAXone 1 GM Vial IVPUSH ONE (22:34)
[2020-11-04] MEDS ORDERED: Sodium Chloride 0.9% 500 ML IV SCH (23:00)
[2020-11-05] MEDS: Dextrose 5%-0.45% NaCl 1,000 ML IV SCH (05:15)
[2020-11-05] MEDS: traMADol 50 MG Tab PO SCH ×2 (06:09→20:45)
[2020-11-05] MEDS ORDERED: IPRATROPIUM INH PRN (10:09)
[2020-11-05] MEDS ORDERED: ALBUTEROL INH PRN (10:09)
[2020-11-05] MEDS ORDERED: Albuterol/Ipratropium 3.0-0.5 MG/3 ML Neb Soln INH SCH (10:30)
[2020-11-05] MEDS ORDERED: SERTRALINE 50 MG PO SCH (10:30)
--- NOTE | 2020-11-05 10:31 | PCM.PN ---
- General Info Date of Service: 11/05/20 Functional Status: Reports: Pain Controlled, Tolerating Diet. Denies: Ambulating - Review of Systems General: Reports: Weakness HEENT: Reports: Other (hard of hearing) Pulmonary: Reports: Cough (green mucous). Denies: Shortness of Breath Cardiovascular: Reports: Dyspnea on Exertion. Denies: Chest Pain, Palpitations Skin: Reports: Pallor Neurological: Reports: Difficulty Walking, Weakness, Gait Disturbance. Denies: Confusion - Patient Data Vitals - Most Recent: Last Vital Signs Temp 97.6 F 11/05/20 06:24 Pulse 94 11/05/20 06:24 Resp 20 11/05/20 06:24 BP 101/58 L 11/05/20 06:24 Pulse Ox 96 11/05/20 06:24 Weight - Most Recent: 185 lb 3.013 oz I&O - Last 24 Hours: Intake & Output 11/04/20 11/05/20 11/05/20 22:59 06:59 14:59 Intake Total 747 1539 Balance 747 1539 Lab Results Last 24 Hours: Laboratory Results - last 24 hr 11/04/20 11/04/20 11/04/20 Range/Units 15:25 16:00 16:00 Sodium 133 L (136-145) mmol/L Potassium 3.6 (3.5-5.1) mmol/L Chloride 96 L (98-107) mmol/L Carbon Dioxide 28.6 (21.0-32.0) mmol/L Anion Gap 12.0 (5-15) mmol/L BUN 39 H (7-18) mg/dL Creatinine 1.63 H (0.51-1.17) mg/dL Est Cr Clr Drug Dosing TNP Estimated GFR (MDRD) 31 mL/min Glucose 87 (70-140) mg/dL Lactic Acid (0.4-2.0) mmol/L Calcium 9.4 (8.7-10.3) mg/dL Total Bilirubin 0.5 (0.2-1.0) mg/dL AST 30 (15-37) U/L ALT 33 (14-63) U/L Alkaline Phosphatase 111 (46-116) U/L B-Natriuretic Peptide 37 (0-100) pg/mL Total Protein 7.3 (6.4-8.2) g/dL Albumin 2.86 L (3.40-5.00) g/dL Specimen Type Urinvoid Urine Color Yellow (YELLOW) Urine Appearance Clear (CLEAR) Urine pH 5.0 (5.0-9.0) Ur Specific [place] >= 1.030 (1.005-1.030) Urine Protein Negative (NEGATIVE) mg/dL Urine Glucose (UA) Negative (NEGATIVE) mg/dL Urine Ketones Negative (NEGATIVE) mg/dL Urine Occult Blood Negative (NEGATIVE) Urine Nitrite Negative (NEGATIVE) Urine Bilirubin Negative (NEGATIVE) Urine Urobilinogen 0.2 (0.2-1.0) E.U./dL Ur Leukocyte Esterase Negative (NEGATIVE) Urine RBC 0-5 (0-5) /HPF Urine WBC 0-5 (0-5) /HPF Ur Epithelial Cells Moderate H /LPF Urine Bacteria Few (NONE TO FEW) /HPF Urine Mucus Few H (NEGATIVE) /LPF 11/04/20 11/04/20 Range/Units 16:00 21:45 Sodium (136-145) mmol/L Potassium (3.5-5.1) mmol/L Chloride (98-107) mmol/L Carbon Dioxide (21.0-32.0) mmol/L Anion Gap (5-15) mmol/L BUN (7-18) mg/dL Creatinine (0.51-1.17) mg/dL Est Cr Clr Drug Dosing Estimated GFR (MDRD) mL/min Glucose (70-140) mg/dL Lactic Acid 2.9 H 3.8 H (0.4-2.0) mmol/L Calcium (8.7-10.3) mg/dL Total Bilirubin (0.2-1.0) mg/dL AST (15-37) U/L ALT (14-63) U/L Alkaline Phosphatase (46-116) U/L B-Natriuretic Peptide (0-100) pg/mL Total Protein (6.4-8.2) g/dL Albumin (3.40-5.00) g/dL Specimen Type Urine Color (YELLOW) Urine Appearance (CLEAR) Urine pH (5.0-9.0) Ur Specific [place] (1.005-1.030) Urine Protein (NEGATIVE) mg/dL Urine Glucose (UA) (NEGATIVE) mg/dL Urine Ketones (NEGATIVE) mg/dL Urine Occult Blood (NEGATIVE) Urine Nitrite (NEGATIVE) Urine Bilirubin (NEGATIVE) Urine Urobilinogen (0.2-1.0) E.U./dL Ur Leukocyte Esterase (NEGATIVE) Urine RBC (0-5) /HPF Urine WBC (0-5) /HPF Ur Epithelial Cells /LPF Urine Bacteria (NONE TO FEW) /HPF Urine Mucus (NEGATIVE) /LPF Med Orders - Current: Current Medications Acetaminophen (Acetaminophen 500 Mg Tab) 1,000 mg PO BID [facility] Last Admin: 11/04/20 20:47 Dose: 1,000 mg Documented by: Acetaminophen (Acetaminophen 325 Mg Tab) 650 mg PO Q4H PRN PRN Reason: Pain Albuterol/Ipratropium (Albuterol/Ipratropium 3.0-0.5 Mg/3 Ml Neb Soln) 3 ml INH BIDRT TOMMY Albuterol/Ipratropium (Albuterol/Ipratropium 3.0-0.5 Mg/3 Ml Neb Soln -Ptom) 3 ml INH ONETIME PRN PRN Reason: SHORTNESS OF BREATH Docusate Sodium (Docusate Sodium 100 Mg Cap) 100 mg PO BID@0800,1800 [facility] Last Admin: 11/04/20 20:48 Dose: Not Given Documented by: Dextrose/Sodium Chloride (Dextrose 5%-1/2 Ns) 1,000 mls @ 200 mls/hr IV ASDIRECTED [facility] Last Admin: 11/05/20 05:15 Dose: 200 mls/hr Documented by: Levofloxacin/Dextrose 500 mg/ (Premix) 100 mls @ 100 mls/hr IV Q48H [facility] Last Admin: 11/04/20 18:30 Dose: 100 mls/hr Documented by: Levofloxacin/Dextrose 250 mg/ (Premix) 50 mls @ 50 mls/hr IV Q48H [facility] Last Admin: 11/04/20 17:28 Dose: 50 mls/hr Documented by: Sodium Chloride (Normal Saline) 500 mls @ 500 mls/hr IV .BOLUS [facility] Last Admin: 11/04/20 23:12 Dose: 500 mls/hr Documented by: Vancomycin HCl 1.25 gm/ Sodium (Chloride) 250 mls @ 166.667 mls/hr IV Q24H [facility] Levothyroxine Sodium (Levothyroxine 88 Mcg Tab) 44 mcg PO Q2D [facility] Bupropion Hcl 300mg (Er Tablet - Ptom) 300 each PO DAILY [facility] Divalproex Sodium [ Depakote Er] 500 Mg Tab.Er.24h Own Med 1,000 mg PO BEDTIME [facility] Last Admin: 11/04/20 20:47 Dose: 1,000 mg Documented by: Fexofenadine 180 Mg (Tablet - Ptom) 180 mg PO DAILY [facility] Trelegy Ellipta 100mcg/62.5mcg/25mcg -Ptom 1 each INH DAILY [facility] Letrozole 2.5 Mg (Tablet - Ptom) 2.5 mg PO DAILY [facility] Lurasidone 80 Mg (Tablet Own Med ) 80 mg PO BEDTIME [facility] Last Admin: 11/04/20 20:48 Dose: 80 mg Documented by: Pantoprazole Sodium (Pantoprazole 40 Mg Tab.Cr Own Med ) 40 mg PO BEDTIME [facility] Last Admin: 11/04/20 20:48 Dose: 40 mg Documented by: Sertraline HCl (Sertraline 50 Mg Tab - Ptom) 100 mg PO DAILY [facility] Sodium Chloride (Sodium Chloride 0.9% 10 Ml Syringe) 10 ml FLUSH Q8HR PRN PRN Reason: keep vein open Tramadol HCl (Tramadol 50 Mg Tab) 50 mg PO 699,[id number] [facility] Last Admin: 11/05/20 06:09 Dose: 50 mg Documented by: Vancomycin HCl (Pharmacy To Dose - Vancomycin) 1 dose .XX ASDIRECTED [facility] Discontinued Medications Ceftriaxone Sodium (Ceftriaxone 1 Gm Vial) 1 gm IVPUSH ONETIME ONE Stop: 11/04/20 22:35 Last Admin: 11/04/20 23:03 Dose: Not Given Documented by: Levofloxacin/Dextrose (Levaquin In D5w 500 Mg/100 Ml) Confirm Administered Dose 100 mls @ as directed IV .STK-MED ONE Stop: 11/04/20 17:20 Last Admin: 11/04/20 17:32 Dose: Not Given Documented by: Vancomycin HCl 1.25 gm/ Sodium (Chloride) 250 mls @ 166.667 mls/hr IV Q24H [facility] Last Admin: 11/04/20 23:47 Dose: Not Given Documented by: Vancomycin HCl 1.75 gm/ Sodium (Chloride) 250 mls @ 100 mls/hr IV ONETIME ONE Stop: 11/05/20 01:29 Last Admin: 11/05/20 00:07 Dose: 100 mls/hr Documented by: - Patient Data Lab Results Last 24 hrs: Laboratory Results - last 24 hr 11/04/20 11/04/20 11/04/20 Range/Units 15:25 16:00 16:00 Sodium 133 L (136-145) mmol/L Potassium 3.6 (3.5-5.1) mmol/L Chloride 96 L (98-107) mmol/L Carbon Dioxide 28.6 (21.0-32.0) mmol/L Anion Gap 12.0 (5-15) mmol/L BUN 39 H (7-18) mg/dL Creatinine 1.63 H (0.51-1.17) mg/dL Est Cr Clr Drug Dosing TNP Estimated GFR (MDRD) 31 mL/min Glucose 87 (70-140) mg/dL Lactic Acid (0.4-2.0) mmol/L Calcium 9.4 (8.7-10.3) mg/dL Total Bilirubin 0.5 (0.2-1.0) mg/dL AST 30 (15-37) U/L ALT 33 (14-63) U/L Alkaline Phosphatase 111 (46-116) U/L B-Natriuretic Peptide 37 (0-100) pg/mL Total Protein 7.3 (6.4-8.2) g/dL Albumin 2.86 L (3.40-5.00) g/dL Specimen Type Urinvoid Urine Color Yellow (YELLOW) Urine Appearance Clear (CLEAR) Urine pH 5.0 (5.0-9.0) Ur Specific [place] >= 1.030 (1.005-1.030) Urine Protein Negative (NEGATIVE) mg/dL Urine Glucose (UA) Negative (NEGATIVE) mg/dL Urine Ketones Negative (NEGATIVE) mg/dL Urine Occult Blood Negative (NEGATIVE) Urine Nitrite Negative (NEGATIVE) Urine Bilirubin Negative (NEGATIVE) Urine Urobilinogen 0.2 (0.2-1.0) E.U./dL Ur Leukocyte Esterase Negative (NEGATIVE) Urine RBC 0-5 (0-5) /HPF Urine WBC 0-5 (0-5) /HPF Ur Epithelial Cells Moderate H /LPF Urine Bacteria Few (NONE TO FEW) /HPF Urine Mucus Few H (NEGATIVE) /LPF 11/04/20 11/04/20 Range/Units 16:00 21:45 Sodium (136-145) mmol/L Potassium (3.5-5.1) mmol/L Chloride (98-107) mmol/L Carbon Dioxide (21.0-32.0) mmol/L Anion Gap (5-15) mmol/L BUN (7-18) mg/dL Creatinine (0.51-1.17) mg/dL Est Cr Clr Drug Dosing Estimated GFR (MDRD) mL/min Glucose (70-140) mg/dL Lactic Acid 2.9 H 3.8 H (0.4-2.0) mmol/L Calcium (8.7-10.3) mg/dL Total Bilirubin (0.2-1.0) mg/dL AST (15-37) U/L ALT (14-63) U/L Alkaline Phosphatase (46-116) U/L B-Natriuretic Peptide (0-100) pg/mL Total Protein (6.4-8.2) g/dL Albumin (3.40-5.00) g/dL Specimen Type Urine Color (YELLOW) Urine Appearance (CLEAR) Urine pH (5.0-9.0) Ur Specific [place] (1.005-1.030) Urine Protein (NEGATIVE) mg/dL Urine Glucose (UA) (NEGATIVE) mg/dL Urine Ketones (NEGATIVE) mg/dL Urine Occult Blood (NEGATIVE) Urine Nitrite (NEGATIVE) Urine Bilirubin (NEGATIVE) Urine Urobilinogen (0.2-1.0) E.U./dL Ur Leukocyte Esterase (NEGATIVE) Urine RBC (0-5) /HPF Urine WBC (0-5) /HPF Ur Epithelial Cells /LPF Urine Bacteria (NONE TO FEW) /HPF Urine Mucus (NEGATIVE) /LPF Result Diagrams: 11/04/20 16:00 Sepsis Event Note - Focused Exam Vital Signs: Vital Signs Temp Pulse Resp BP Pulse Ox 11/05/20 06:24 97.6 F 94 20 101/58 L 96 11/05/20 02:53 97.0 F 92 20 126/57 L 94 L 11/04/20 22:58 96.4 F L 87 20 129/53 L 93 L - Problem List Review Problem List Initiated/Reviewed/Updated: Yes - My Orders Last 24 Hours: My Active Orders 11/04/20 16:07 Acetaminophen [TylenoL] 650 mg PO Q4H PRN 11/04/20 16:14 RT Aerosol Therapy [RC] .PRN 11/04/20 16:15 Levothyroxine [Synthroid] 44 mcg PO Q2D 11/04/20 17:03 Chest 2V [CR] Routine 11/04/20 17:04 CULTURE SPUTUM + SMEAR [RM] Urgent 11/04/20 18:00 Docusate Sodium [Colace] 100 mg PO BID@0800,1800 11/04/20 20:00 traMADol [Ultram] 50 mg PO 0700,199911/04/20 21:00 Acetaminophen [Tylenol Extra Strength] 1,000 mg PO BID Divalproex Sodium [Depakote ER] 1,000 mg PO BEDTIME Lurasidone 80 mg PO BEDTIME Pantoprazole [ProTONIX] 40 mg PO BEDTIME 11/05/20 09:00 Cholecalciferol (Vitamin D3) [Vitamin D3] DOSE UNIT RTE FREQ 11/05/20 10:25 CXR [Chest 2V] [CR] Routine 11/05/20 10:30 Albuterol/Ipratropium [DuoNeb 3.0-0.5 MG/3 ML] 3 ml INH BIDRT Fexofenadine 180 mg PO DAILY Fluticasone/Umeclidin/Vilanter 1 each INH DAILY Letrozole 2.5 mg PO DAILY Non-Formulary Medication [NF Drug] 300 each PO DAILY Sertraline [Zoloft] 100 mg PO DAILY - Plan Plan:: History summary Ms Bennett is a 75-year-old female that was admitted by [facility] from a [facility] with symptoms suggestive of pneumonia. Patient who is a resident of a LTC was in the [place] clinic following up of a recent pneumonia she had. She has completed a 5-day coarse of DUAL antibiotics cephalosporin doxycycline and Lasix wherever continued to cough with green mucus. Subjectively she complained of ongoing fatigue/SOB/lower extremity edema/weakness/cough. Covid negative. Hospital course 11/05/2020, this morning on rounds patient looks good, oxygen saturations good, improving blood pressure, no fever, alert, green mucus cough with rhonchi, adequate output Primary hospital problems --Pneumonia, Levaquin, vancomycin --Sepsis. Chronic problems --COPD, LABA/LAMA/ICS --HFpEF; chronic, metoprolol tartrate, --CKD stage IIIb Avoid NSAID and IV contrast, Low Sodium diet. --Hypertension, Stable --Hyperlipidemia, statin therapy, --Prediabetes, --Hypothyroidism, thyroid replacement therapy --Anemia, Renal, Hemoglobin stable, iron --CKD-MBD, cholecalciferol. 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 Follows with oncology, Lotrozole Disposition/overall plan --We will change from OBS status to inpatient status for the need for ongoing antibiotics and close monitoring of respiratory status
[2020-11-05] MEDS: FEXOFENADINE 180 MG PO SCH (10:44)
[2020-11-05] MEDS: Docusate Sodium 100 MG Cap PO SCH ×2 (10:44→18:50)
[2020-11-05] MEDS: Acetaminophen 500 MG Tab PO SCH ×2 (10:44→20:45)
[2020-11-05] MEDS: LETROZOLE 2.5 MG PO SCH (10:45)
[2020-11-05] MEDS: BUPROPION HCL 300 MG PO SCH (10:46)
[2020-11-05] MEDS ORDERED: Nystatin Topical Powder 15 GM Bottle TOP PRN (10:46)
[2020-11-05] MEDS: TRELEGY ELLIPTA INH SCH (10:46)
--- NOTE | 2020-11-05 10:58 | CR ---
[id number] RAD/RAD Chest PA or AP 1V EXAM: RAD Chest PA or AP 1V INDICATION: POSSIBLE PNEUMONIA COMPARISON: Multiple priors compared to 2019. DISCUSSION/IMPRESSION: Cardiomediastinal silhouette is normal in size and contour. 7 x 4 mm nodular opacity in the right upper lung. Findings were seen on examination from 2019 and stable, consistent with benign etiology. Lungs otherwise clear. No acute findings. Sushant Marcos MD 11/05/20 1057 Thank you for allowing us to participate in the care of your patient.
[2020-11-05] MEDS ORDERED: Estradiol 0.01% Vaginal Crm 42.5 GM Tube VAG SCH (11:00)
[2020-11-05] MEDS ORDERED: Levothyroxine 88 MCG Tab PO ONE (12:00)
[2020-11-05] MEDS ORDERED: Albuterol/Ipratropium 3.0-0.5 MG/3 ML Neb Soln INH PRN (12:27)
[2020-11-05 15:42] LABS: ANION GAP 14.8 mmol/L (5-15)
[2020-11-05] MEDS: Sodium Chloride 0.9% 1,000 ML IV SCH (16:02)
[2020-11-05] MEDS ORDERED: Ondansetron 4 MG Tab.DIS PO PRN (20:17)
--- NOTE | 2020-11-05 20:21 | PCM.SN.2 ---
- Free Text/Narrative Note: 1. Repeated lactic acid = 3.0 - IV fluids running. Will recheck lactic acid in am 2. Emesis x 1 this evening, PRN 4mg zofran PO Q6H PRN N/V. 3. BC NGTD x 1 day 4. Continuing with vancomycin and levaquin - will de-escalate when appropriate based on BC results. Low suspicion of pneumonia given clear CXR and lack of pulmonary symptoms. Time Documentation
[2020-11-05] MEDS: atorvaSTATin 10 MG Tab PO SCH (20:45)
[2020-11-05] MEDS: Allopurinol 100 MG Tab PO SCH (20:45)
[2020-11-05] MEDS: Pantoprazole 40 MG Tab.CR PO SCH (20:45)
[2020-11-05] MEDS: LURASIDONE 80 MG PO SCH (20:46)
[2020-11-05] MEDS: DIVALPROEX SODIUM 500 MG PO SCH (20:47)
[2020-11-05] MEDS: Albuterol/Ipratropium 3.0-0.5 MG/3 ML Neb Soln INH SCH (20:49)
[2020-11-06] MEDS: guaiFENesin/Dextromethorphan 100-10 MG/5 ML Soln 5 ML Cup PO PRN ×2 (01:43→23:58)
[2020-11-06] MEDS: Sodium Chloride 0.9% 1,000 ML IV SCH ×2 (03:42→13:45)
[2020-11-06] MEDS: Levothyroxine 88 MCG Tab PO SCH ×2 (06:23→06:35)
[2020-11-06] MEDS: traMADol 50 MG Tab PO SCH ×2 (06:23→19:12)
[2020-11-06] MEDS: Acetaminophen 500 MG Tab PO SCH ×3 (08:01→20:22)
[2020-11-06] MEDS: Allopurinol 100 MG Tab PO SCH ×3 (08:02→20:23)
[2020-11-06] MEDS: Iron Polysaccharides Complex 150 MG Cap PO SCH (08:03)
[2020-11-06] MEDS: Albuterol/Ipratropium 3.0-0.5 MG/3 ML Neb Soln INH SCH ×2 (08:03→19:13)
[2020-11-06] MEDS: Sertraline 50 MG Tab PO SCH (08:03)
[2020-11-06] MEDS: Docusate Sodium 100 MG Cap PO SCH ×2 (08:03→17:32)
[2020-11-06] MEDS: LETROZOLE 2.5 MG PO SCH (08:05)
[2020-11-06] MEDS: BUPROPION HCL 300 MG PO SCH (08:05)
[2020-11-06] MEDS: FEXOFENADINE 180 MG PO SCH (08:05)
[2020-11-06] MEDS: TRELEGY ELLIPTA INH SCH (08:06)
[2020-11-06 08:52] LABS: ANION GAP 18.1 mmol/L (5-15)
--- NOTE | 2020-11-06 10:24 | PCM.PN ---
- General Info Date of Service: 11/06/20 Functional Status: Reports: Pain Controlled, Urinating. Denies: New Symptoms - Review of Systems General: Reports: Weakness HEENT: Denies: No Symptoms Pulmonary: Reports: Shortness of Breath, Cough, Sputum (reports green sputum which is swallowed) Cardiovascular: Reports: Edema Gastrointestinal: Reports: No Symptoms. Denies: Nausea Genitourinary: Reports: No Symptoms Musculoskeletal: Reports: No Symptoms Skin: Reports: No Symptoms Neurological: Reports: No Symptoms Psychiatric: Reports: No Symptoms - Patient Data Vitals - Most Recent: Last Vital Signs Temp 97.4 F 11/06/20 06:29 Pulse 97 11/06/20 06:29 Resp 20 11/06/20 06:29 BP 109/65 11/06/20 06:29 Pulse Ox 97 11/06/20 06:29 Weight - Most Recent: 185 lb 3.013 oz I&O - Last 24 Hours: Intake & Output 11/05/20 11/06/20 11/06/20 22:59 06:59 14:59 Intake Total 793 913 Balance 793 913 Lab Results Last 24 Hours: Laboratory Results - last 24 hr 11/05/20 11/05/20 11/05/20 Range/Units 11:10 11:10 16:05 WBC 14.74 H (5.00-10.00) 10^3/uL RBC 3.71 L (3.80-5.50) 10^6/uL Hgb 10.1 L (12.0-16.0) g/dL Hct 32.0 L (37.0-47.0) % MCV 86.3 D (82.0-92.0) fL MCH 27.2 (27.0-31.0) pg MCHC 31.6 L (32.0-36.0) g/dL RDW 17.0 H (11.5-14.5) % Plt Count 358 D (150-400) 10^3/uL MPV 10.1 (7.4-10.4) fL Immature Gran % (Auto) 0.6 (0.0-5.0) % Neut % (Auto) 65.9 (50.0-70.0) % Lymph % (Auto) 19.3 L (20.0-40.0) % Wise % (Auto) 12.7 H (2.0-8.0) % Eos % (Auto) 1.4 (1.0-3.0) % Baso % (Auto) 0.1 (0.0-1.0) % Neut # (Auto) 9.70 H (2.50-7.00) 10^3/uL Lymph # (Auto) 2.85 (1.00-4.00) 10^3/uL Wise # (Auto) 1.87 H (0.10-0.80) 10^3/uL Eos # (Auto) 0.21 (0.10-0.30) 10^3/uL Baso # (Auto) 0.02 (0.00-0.10) 10^3/uL Immature Gran # (Auto) 0.09 (0.00-0.50) 10^3/uL Sodium 131 L (136-145) mmol/L Potassium 3.5 (3.5-5.1) mmol/L Chloride 95 L (98-107) mmol/L Carbon Dioxide 24.7 (21.0-32.0) mmol/L Anion Gap 14.8 (5-15) mmol/L BUN 27 H (7-18) mg/dL Creatinine 1.25 H (0.51-1.17) mg/dL Est Cr Clr Drug Dosing 31.18 mL/min Estimated GFR (MDRD) 42 mL/min Glucose 80 (70-140) mg/dL Lactic Acid 3.0 H (0.4-2.0) mmol/L Calcium 8.5 L (8.7-10.3) mg/dL Total Bilirubin 0.4 (0.2-1.0) mg/dL AST 38 H (15-37) U/L ALT 29 (14-63) U/L Alkaline Phosphatase 100 (46-116) U/L C-Reactive Protein (0.0-0.9) mg/dL Total Protein 6.3 L (6.4-8.2) g/dL Albumin 2.32 L (3.40-5.00) g/dL 11/05/20 11/06/20 11/06/20 Range/Units 16:05 07:43 07:43 WBC 10.95 H (5.00-10.00) 10^3/uL RBC 3.79 L (3.80-5.50) 10^6/uL Hgb 10.5 L (12.0-16.0) g/dL Hct 32.7 L (37.0-47.0) % MCV 86.3 (82.0-92.0) fL MCH 27.7 (27.0-31.0) pg MCHC 32.1 (32.0-36.0) g/dL RDW 17.2 H (11.5-14.5) % Plt Count 319 (150-400) 10^3/uL MPV 10.2 (7.4-10.4) fL Immature Gran % (Auto) 1.2 (0.0-5.0) % Neut % (Auto) 63.3 (50.0-70.0) % Lymph % (Auto) 20.8 (20.0-40.0) % Wise % (Auto) 11.2 H (2.0-8.0) % Eos % (Auto) 3.2 H (1.0-3.0) % Baso % (Auto) 0.3 (0.0-1.0) % Neut # (Auto) 6.93 (2.50-7.00) 10^3/uL Lymph # (Auto) 2.28 (1.00-4.00) 10^3/uL Wise # (Auto) 1.23 H (0.10-0.80) 10^3/uL Eos # (Auto) 0.35 H (0.10-0.30) 10^3/uL Baso # (Auto) 0.03 (0.00-0.10) 10^3/uL Immature Gran # (Auto) 0.13 (0.00-0.50) 10^3/uL Sodium 136 (136-145) mmol/L Potassium 3.7 (3.5-5.1) mmol/L Chloride 100 (98-107) mmol/L Carbon Dioxide 21.6 (21.0-32.0) mmol/L Anion Gap 18.1 H (5-15) mmol/L BUN 20 H (7-18) mg/dL Creatinine 1.08 (0.51-1.17) mg/dL Est Cr Clr Drug Dosing 36.09 mL/min Estimated GFR (MDRD) 49 mL/min Glucose 69 L (70-140) mg/dL Lactic Acid (0.4-2.0) mmol/L Calcium 8.3 L (8.7-10.3) mg/dL Total Bilirubin 0.4 (0.2-1.0) mg/dL AST 35 (15-37) U/L ALT 29 (14-63) U/L Alkaline Phosphatase 91 (46-116) U/L C-Reactive Protein 4.8 H (0.0-0.9) mg/dL Total Protein 6.0 L (6.4-8.2) g/dL Albumin 2.16 L (3.40-5.00) g/dL 11/06/20 Range/Units 07:43 WBC (5.00-10.00) 10^3/uL RBC (3.80-5.50) 10^6/uL Hgb (12.0-16.0) g/dL Hct (37.0-47.0) % MCV (82.0-92.0) fL MCH (27.0-31.0) pg MCHC (32.0-36.0) g/dL RDW (11.5-14.5) % Plt Count (150-400) 10^3/uL MPV (7.4-10.4) fL Immature Gran % (Auto) (0.0-5.0) % Neut % (Auto) (50.0-70.0) % Lymph % (Auto) (20.0-40.0) % Wise % (Auto) (2.0-8.0) % Eos % (Auto) (1.0-3.0) % Baso % (Auto) (0.0-1.0) % Neut # (Auto) (2.50-7.00) 10^3/uL Lymph # (Auto) (1.00-4.00) 10^3/uL Wise # (Auto) (0.10-0.80) 10^3/uL Eos # (Auto) (0.10-0.30) 10^3/uL Baso # (Auto) (0.00-0.10) 10^3/uL Immature Gran # (Auto) (0.00-0.50) 10^3/uL Sodium (136-145) mmol/L Potassium (3.5-5.1) mmol/L Chloride (98-107) mmol/L Carbon Dioxide (21.0-32.0) mmol/L Anion Gap (5-15) mmol/L BUN (7-18) mg/dL Creatinine (0.51-1.17) mg/dL Est Cr Clr Drug Dosing mL/min Estimated GFR (MDRD) mL/min Glucose (70-140) mg/dL Lactic Acid 1.9 (0.4-2.0) mmol/L Calcium (8.7-10.3) mg/dL Total Bilirubin (0.2-1.0) mg/dL AST (15-37) U/L ALT (14-63) U/L Alkaline Phosphatase (46-116) U/L C-Reactive Protein (0.0-0.9) mg/dL Total Protein (6.4-8.2) g/dL Albumin (3.40-5.00) g/dL Steven Results Last 24 Hours: Microbiology 11/04/20 21:45 Aerobic Blood Culture - Preliminary Blood - Venous NO GROWTH AFTER 1 DAY Anaerobic Blood Culture - Preliminary NO GROWTH AFTER 1 DAY 11/04/20 16:00 Aerobic Blood Culture - Preliminary Blood - Venous - Lab Draw NO GROWTH AFTER 1 DAY Anaerobic Blood Culture - Preliminary NO GROWTH AFTER 1 DAY Med Orders - Current: Current Medications Acetaminophen (Acetaminophen 500 Mg Tab) 1,000 mg PO BID [facility] Last Admin: 11/06/20 08:01 Dose: 1,000 mg Documented by: Acetaminophen (Acetaminophen 325 Mg Tab) 650 mg PO Q4H PRN PRN Reason: Pain Albuterol/Ipratropium (Albuterol/Ipratropium 3.0-0.5 Mg/3 Ml Neb Soln) 3 ml INH BIDRT [facility] Last Admin: 11/06/20 08:03 Dose: 3 ml Documented by: Albuterol/Ipratropium (Albuterol/Ipratropium 3.0-0.5 Mg/3 Ml Neb Soln) 3 ml INH ONETIME PRN PRN Reason: SHORTNESS OF BREATH Allopurinol (Allopurinol 100 Mg Tab) 100 mg PO BID [facility] Last Admin: 11/06/20 08:02 Dose: 100 mg Documented by: Atorvastatin Calcium (Atorvastatin 10 Mg Tab) 10 mg PO BEDTIME [facility] Last Admin: 11/05/20 20:45 Dose: 10 mg Documented by: Docusate Sodium (Docusate Sodium 100 Mg Cap) 100 mg PO BID@0800,1800 [facility] Last Admin: 11/06/20 08:03 Dose: 100 mg Documented by: Guaifenesin/Phenylephrine HCl (Guaifenesin/Dextromethorphan 100-10 Mg/5 Ml Soln 5 Ml Cup) 10 ml PO Q4H PRN PRN Reason: Cough Last Admin: 11/06/20 01:43 Dose: 10 ml Documented by: Levofloxacin/Dextrose 500 mg/ (Premix) 100 mls @ 100 mls/hr IV Q48H [facility] Last Admin: 11/04/20 18:30 Dose: 100 mls/hr Documented by: Levofloxacin/Dextrose 250 mg/ (Premix) 50 mls @ 50 mls/hr IV Q48H [facility] Last Admin: 11/04/20 17:28 Dose: 50 mls/hr Documented by: Vancomycin HCl 1.25 gm/ Sodium (Chloride) 250 mls @ 166.667 mls/hr IV Q24H [facility] Last Admin: 11/05/20 22:45 Dose: 166.667 mls/hr Documented by: Sodium Chloride (Normal Saline) 1,000 mls @ 100 mls/hr IV ASDIRECTED [facility] Last Admin: 11/06/20 03:42 Dose: 100 mls/hr Documented by: Levothyroxine Sodium (Levothyroxine 88 Mcg Tab) 44 mcg PO Q48H [facility] Levothyroxine Sodium (Levothyroxine 88 Mcg Tab) 88 mcg PO Q48H [facility] Last Admin: 11/06/20 06:35 Dose: Not Given Documented by: Bupropion Hcl 300mg (Er Tablet - Ptom) 300 each PO DAILY [facility] Last Admin: 11/06/20 08:05 Dose: 300 each Documented by: Divalproex Sodium [ Depakote Er] 500 Mg Tab.Er.24h Own Med 1,000 mg PO BEDTIME [facility] Last Admin: 11/05/20 20:47 Dose: 1,000 mg Documented by: Fexofenadine 180 Mg (Tablet - Ptom) 180 mg PO DAILY [facility] Last Admin: 11/06/20 08:05 Dose: 180 mg Documented by: Vu Ellipta 100mcg/62.5mcg/25mcg -Ptom 1 each INH DAILY [facility] Last Admin: 11/06/20 08:06 Dose: 1 each Documented by: Letrozole 2.5 Mg (Tablet - Ptom) 2.5 mg PO DAILY [facility] Last Admin: 11/06/20 08:05 Dose: 2.5 mg Documented by: Lurasidone 80 Mg (Tablet Own Med ) 80 mg PO BEDTIME [facility] Last Admin: 11/05/20 20:46 Dose: 80 mg Documented by: Nystatin (Nystatin Topical Powder 15 Gm Bottle) 15 gm TOP TID PRN PRN Reason: Inflammation Ondansetron HCl (Ondansetron 4 Mg Tab.Dis) 4 mg PO Q6H PRN PRN Reason: Nausea/Vomiting Last Admin: 11/05/20 20:45 Dose: 4 mg Documented by: Pantoprazole Sodium (Pantoprazole 40 Mg Tab.Cr) 40 mg PO BEDTIME [facility] Last Admin: 11/05/20 20:45 Dose: 40 mg Documented by: Polysaccharide Iron Complex (Iron Polysaccharides Complex 150 Mg Cap) 150 mg PO DAILY [facility] Last Admin: 11/06/20 08:03 Dose: 150 mg Documented by: Senna/Docusate Sodium (Docusate Sodium/Sennosides 50-8.6 Mg Tab) 2 tab PO BID [facility] Last Admin: 11/06/20 08:02 Dose: 2 tab Documented by: Sertraline HCl (Sertraline 50 Mg Tab) 100 mg PO DAILY [facility] Last Admin: 11/06/20 08:03 Dose: 100 mg Documented by: Sodium Chloride (Sodium Chloride 0.9% 10 Ml Syringe) 10 ml FLUSH Q8HR PRN PRN Reason: keep vein open Tramadol HCl (Tramadol 50 Mg Tab) 50 mg PO 699,1999 [facility] Last Admin: 11/06/20 06:23 Dose: 50 mg Documented by: Vancomycin HCl (Pharmacy To Dose - Vancomycin) 1 dose .XX ASDIRECTED [facility] Discontinued Medications Albuterol/Ipratropium (Albuterol/Ipratropium 3.0-0.5 Mg/3 Ml Neb Soln) 3 ml INH BIDRT [facility] Last Admin: 11/05/20 10:46 Dose: 3 ml Documented by: Albuterol/Ipratropium (Albuterol/Ipratropium 3.0-0.5 Mg/3 Ml Neb Soln -Ptom) 3 ml INH ONETIME PRN PRN Reason: SHORTNESS OF BREATH Ceftriaxone Sodium (Ceftriaxone 1 Gm Vial) 1 gm IVPUSH ONETIME ONE Stop: 11/04/20 22:35 Last Admin: 11/04/20 23:03 Dose: Not Given Documented by: Dextrose/Sodium Chloride (Dextrose 5%-1/2 Ns) 1,000 mls @ 200 mls/hr IV ASDIRECTED [facility] Last Admin: 11/05/20 05:15 Dose: 200 mls/hr Documented by: Levofloxacin/Dextrose (Levaquin In D5w 500 Mg/100 Ml) Confirm Administered Dose 100 mls @ as directed IV .STK-MED ONE Stop: 11/04/20 17:20 Last Admin: 11/04/20 17:32 Dose: Not Given Documented by: Sodium Chloride (Normal Saline) 500 mls @ 500 mls/hr IV .BOLUS [facility] Last Admin: 11/04/20 23:12 Dose: 500 mls/hr Documented by: Vancomycin HCl 1.25 gm/ Sodium (Chloride) 250 mls @ 166.667 mls/hr IV Q24H [facility] Last Admin: 11/04/20 23:47 Dose: Not Given Documented by: Vancomycin HCl 1.75 gm/ Sodium (Chloride) 250 mls @ 100 mls/hr IV ONETIME ONE Stop: 11/05/20 01:29 Last Admin: 11/05/20 00:07 Dose: 100 mls/hr Documented by: Levothyroxine Sodium (Levothyroxine 88 Mcg Tab) 44 mcg PO ONETIME ONE Stop: 11/05/20 12:01 Last Admin: 11/05/20 12:13 Dose: 44 mcg Documented by: Sertraline HCl (Sertraline 50 Mg Tab - Ptom) 100 mg PO DAILY [facility] Last Admin: 11/05/20 10:45 Dose: 100 mg Documented by: - Exam Quality Assessment: No: Supplemental Oxygen General: Alert, Oriented, Cooperative, No Acute Distress HEENT: Pupils Equal, Mucous Membr. Moist/[place] Neck: Supple Lungs: Decreased Breath Sounds. No: Crackles, Rhonchi, Wheezing Cardiovascular: Regular Rate, Regular Rhythm, No Murmurs GI/Abdominal Exam: Normal Bowel Sounds, Soft, Non-Tender, No Distention (Female) Exam: Deferred Back Exam: Normal Inspection, Full Range of Motion Extremities: Non-Tender, Pedal Edema Peripheral Pulses: 1+: Dorsalis Pedis (L), Dorsalis Pedis (R) Skin: Warm, Dry, Intact Neurological: No New Focal Deficit Psy/Mental Status: Alert - Patient Data Lab Results Last 24 hrs: Laboratory Results - last 24 hr 11/05/20 11/05/20 11/05/20 Range/Units 11:10 11:10 16:05 WBC 14.74 H (5.00-10.00) 10^3/uL RBC 3.71 L (3.80-5.50) 10^6/uL Hgb 10.1 L (12.0-16.0) g/dL Hct 32.0 L (37.0-47.0) % MCV 86.3 D (82.0-92.0) fL MCH 27.2 (27.0-31.0) pg MCHC 31.6 L (32.0-36.0) g/dL RDW 17.0 H (11.5-14.5) % Plt Count 358 D (150-400) 10^3/uL MPV 10.1 (7.4-10.4) fL Immature Gran % (Auto) 0.6 (0.0-5.0) % Neut % (Auto) 65.9 (50.0-70.0) % Lymph % (Auto) 19.3 L (20.0-40.0) % Wise % (Auto) 12.7 H (2.0-8.0) % Eos % (Auto) 1.4 (1.0-3.0) % Baso % (Auto) 0.1 (0.0-1.0) % Neut # (Auto) 9.70 H (2.50-7.00) 10^3/uL Lymph # (Auto) 2.85 (1.00-4.00) 10^3/uL Wise # (Auto) 1.87 H (0.10-0.80) 10^3/uL Eos # (Auto) 0.21 (0.10-0.30) 10^3/uL Baso # (Auto) 0.02 (0.00-0.10) 10^3/uL Immature Gran # (Auto) 0.09 (0.00-0.50) 10^3/uL Sodium 131 L (136-145) mmol/L Potassium 3.5 (3.5-5.1) mmol/L Chloride 95 L (98-107) mmol/L Carbon Dioxide 24.7 (21.0-32.0) mmol/L Anion Gap 14.8 (5-15) mmol/L BUN 27 H (7-18) mg/dL Creatinine 1.25 H (0.51-1.17) mg/dL Est Cr Clr Drug Dosing 31.18 mL/min Estimated GFR (MDRD) 42 mL/min Glucose 80 (70-140) mg/dL Lactic Acid 3.0 H (0.4-2.0) mmol/L Calcium 8.5 L (8.7-10.3) mg/dL Total Bilirubin 0.4 (0.2-1.0) mg/dL AST 38 H (15-37) U/L ALT 29 (14-63) U/L Alkaline Phosphatase 100 (46-116) U/L C-Reactive Protein (0.0-0.9) mg/dL Total Protein 6.3 L (6.4-8.2) g/dL Albumin 2.32 L (3.40-5.00) g/dL 11/05/20 11/06/20 11/06/20 Range/Units 16:05 07:43 07:43 WBC 10.95 H (5.00-10.00) 10^3/uL RBC 3.79 L (3.80-5.50) 10^6/uL Hgb 10.5 L (12.0-16.0) g/dL Hct 32.7 L (37.0-47.0) % MCV 86.3 (82.0-92.0) fL MCH 27.7 (27.0-31.0) pg MCHC 32.1 (32.0-36.0) g/dL RDW 17.2 H (11.5-14.5) % Plt Count 319 (150-400) 10^3/uL MPV 10.2 (7.4-10.4) fL Immature Gran % (Auto) 1.2 (0.0-5.0) % Neut % (Auto) 63.3 (50.0-70.0) % Lymph % (Auto) 20.8 (20.0-40.0) % Wise % (Auto) 11.2 H (2.0-8.0) % Eos % (Auto) 3.2 H (1.0-3.0) % Baso % (Auto) 0.3 (0.0-1.0) % Neut # (Auto) 6.93 (2.50-7.00) 10^3/uL Lymph # (Auto) 2.28 (1.00-4.00) 10^3/uL Wise # (Auto) 1.23 H (0.10-0.80) 10^3/uL Eos # (Auto) 0.35 H (0.10-0.30) 10^3/uL Baso # (Auto) 0.03 (0.00-0.10) 10^3/uL Immature Gran # (Auto) 0.13 (0.00-0.50) 10^3/uL Sodium 136 (136-145) mmol/L Potassium 3.7 (3.5-5.1) mmol/L Chloride 100 (98-107) mmol/L Carbon Dioxide 21.6 (21.0-32.0) mmol/L Anion Gap 18.1 H (5-15) mmol/L BUN 20 H (7-18) mg/dL Creatinine 1.08 (0.51-1.17) mg/dL Est Cr Clr Drug Dosing 36.09 mL/min Estimated GFR (MDRD) 49 mL/min Glucose 69 L (70-140) mg/dL Lactic Acid (0.4-2.0) mmol/L Calcium 8.3 L (8.7-10.3) mg/dL Total Bilirubin 0.4 (0.2-1.0) mg/dL AST 35 (15-37) U/L ALT 29 (14-63) U/L Alkaline Phosphatase 91 (46-116) U/L C-Reactive Protein 4.8 H (0.0-0.9) mg/dL Total Protein 6.0 L (6.4-8.2) g/dL Albumin 2.16 L (3.40-5.00) g/dL 11/06/20 Range/Units 07:43 WBC (5.00-10.00) 10^3/uL RBC (3.80-5.50) 10^6/uL Hgb (12.0-16.0) g/dL Hct (37.0-47.0) % MCV (82.0-92.0) fL MCH (27.0-31.0) pg MCHC (32.0-36.0) g/dL RDW (11.5-14.5) % Plt Count (150-400) 10^3/uL MPV (7.4-10.4) fL Immature Gran % (Auto) (0.0-5.0) % Neut % (Auto) (50.0-70.0) % Lymph % (Auto) (20.0-40.0) % Wise % (Auto) (2.0-8.0) % Eos % (Auto) (1.0-3.0) % Baso % (Auto) (0.0-1.0) % Neut # (Auto) (2.50-7.00) 10^3/uL Lymph # (Auto) (1.00-4.00) 10^3/uL Wise # (Auto) (0.10-0.80) 10^3/uL Eos # (Auto) (0.10-0.30) 10^3/uL Baso # (Auto) (0.00-0.10) 10^3/uL Immature Gran # (Auto) (0.00-0.50) 10^3/uL Sodium (136-145) mmol/L Potassium (3.5-5.1) mmol/L Chloride (98-107) mmol/L Carbon Dioxide (21.0-32.0) mmol/L Anion Gap (5-15) mmol/L BUN (7-18) mg/dL Creatinine (0.51-1.17) mg/dL Est Cr Clr Drug Dosing mL/min Estimated GFR (MDRD) mL/min Glucose (70-140) mg/dL Lactic Acid 1.9 (0.4-2.0) mmol/L Calcium (8.7-10.3) mg/dL Total Bilirubin (0.2-1.0) mg/dL AST (15-37) U/L ALT (14-63) U/L Alkaline Phosphatase (46-116) U/L C-Reactive Protein (0.0-0.9) mg/dL Total Protein (6.4-8.2) g/dL Albumin (3.40-5.00) g/dL Result Diagrams: 11/06/20 07:43 11/06/20 07:43 Steven Results Last 24 hrs: Microbiology 11/04/20 21:45 Aerobic Blood Culture - Preliminary Blood - Venous NO GROWTH AFTER 1 DAY Anaerobic Blood Culture - Preliminary NO GROWTH AFTER 1 DAY 11/04/20 16:00 Aerobic Blood Culture - Preliminary Blood - Venous - Lab Draw NO GROWTH AFTER 1 DAY Anaerobic Blood Culture - Preliminary NO GROWTH AFTER 1 DAY Sepsis Event Note - Focused Exam Vital Signs: Vital Signs Temp Pulse Resp BP Pulse Ox 11/06/20 06:29 97.4 F 97 20 109/65 97 11/06/20 03:00 97.3 F 96 20 107/64 95 11/05/20 22:24 97.5 F 96 20 91/43 L 90 L - Problem List Review Problem List Initiated/Reviewed/Updated: Yes - My Orders Last 24 Hours: My Active Orders 11/05/20 14:30 Sodium Chloride 0.9% [Normal Saline] 1,000 ml IV ASDIRECTED 11/05/20 20:17 Ondansetron [Zofran ODT] 4 mg PO Q6H PRN 11/06/20 10:07 Dietary Supplements [RC] WITHMEALSANDBED - Plan Plan:: HPI summary: Ms Bennett is a 75yF directly admitted from [facility] per Cele Isidro PA-C for symptoms suggestive of pneumonia. Patient who is a resident of [facility] in [place] and was seen as follow up of a recent pneumonia. She has completed a 5-day coarse of DUAL antibiotics cephalosporin & doxycycline, as well as lasix, however despite tx has continued to cough with green mucus. Subjectively she complained of ongoing fatigue/SOB/lower extremity edema/weakness/cough. Covid negative prior to admission. Hospital course: 11/05/2020, this morning on rounds patient looks good, oxygen saturations good, improving blood pressure, no fever, alert, green mucus cough with rhonchi, adequate output 11/06/20: No calls overnight. Patient reports feeling somewhat better this morning. Cough with green sputum continues per patient. Vitals stable, no supplemental oxygen requirement. Lung sounds clear, diminished. WBC improving, lactic acid normalized upon recheck this am. Hyperalbuminemia, 2.19 will start protein supplementation. Hospitalization problems and plan: # Leukocytosis - improved this morning; WBC 10.95 (63% neutrophils); procalcitionin 0.23 (11/04). UA negative without concern for infectious process. # Possible pneumonia - CXR not overly impressive for pulmonary etiology, however. # Elevated lactic acid - result yesterday afternoon was 3.8, repeated last night = 3.0, normalized this am to 1.9 - Continue levaquin 750mg IV Q48H due to renal insufficiency - Continue vancomycin - pharmacy to dose - BC NGTD x 1 day - will de-escalate treatment if continues to have no growth - Sputum culture remains uncollected - patient swallowing sputum - Repeat CBC in am # Hypoalbuminemia; 2.19 - Start protein supplementation today Chronic, stable conditions: # HFpEF - chronic, metoprolol tartrate 12.5mg PO BID. Last echo 10/25/16 - EF 75%, grade 1 diastolic dysfunction # COPD - trelegy dejantagisellebs # CKD stage IIIb Avoid NSAID and IV contrast, Low Sodium diet. 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 Follows with oncology, Lotroz[facility] Hospitalization details: # FEN: NS @ 100ml/hr, electrolytes stable, regular diet # PPX: ASA 81mg PO daily # Code status: FULL CODE # Emergency contact: Zeynep Kaiser [phone] # Disposition: Will continue inpatient status due to pending blood cultures and IV antibiotics. Labs improving, vitals stable. Discharge to be determined based on clinical course
[2020-11-06] MEDS: Levofloxacin/Dextrose 5%-Water 250 MG in Premix Bag 1 BAG IV SCH (16:19)
[2020-11-06] MEDS: Levofloxacin/Dextrose 5%-Water 500 MG in Premix Bag 1 BAG IV SCH (17:29)
[2020-11-06] MEDS: atorvaSTATin 10 MG Tab PO SCH ×2 (19:54→20:22)
[2020-11-06] MEDS: LURASIDONE 80 MG PO SCH ×2 (19:55→20:22)
[2020-11-06] MEDS: DIVALPROEX SODIUM 500 MG PO SCH ×2 (19:55→20:22)
[2020-11-06] MEDS: Pantoprazole 40 MG Tab.CR PO SCH (20:15)
[2020-11-07] MEDS: guaiFENesin/Dextromethorphan 100-10 MG/5 ML Soln 5 ML Cup PO PRN (04:08)
[2020-11-07] MEDS: Sodium Chloride 0.9% 1,000 ML IV SCH ×2 (04:17→14:21)
[2020-11-07] MEDS: traMADol 50 MG Tab PO SCH ×2 (07:56→20:45)
[2020-11-07] MEDS: Albuterol/Ipratropium 3.0-0.5 MG/3 ML Neb Soln INH SCH ×4 (07:56→18:02)
[2020-11-07] MEDS: Levothyroxine 88 MCG Tab PO SCH (07:56)
[2020-11-07 08:08] LABS: ANION GAP 12.8 mmol/L (5-15)
[2020-11-07] MEDS: Allopurinol 100 MG Tab PO SCH ×2 (08:18→20:47)
[2020-11-07] MEDS: Sertraline 50 MG Tab PO SCH (08:18)
[2020-11-07] MEDS: Iron Polysaccharides Complex 150 MG Cap PO SCH (08:18)
[2020-11-07] MEDS: Acetaminophen 500 MG Tab PO SCH ×2 (08:18→20:48)
[2020-11-07] MEDS: Docusate Sodium 100 MG Cap PO SCH ×2 (08:18→17:43)
[2020-11-07] MEDS: BUPROPION HCL 300 MG PO SCH (08:24)
[2020-11-07] MEDS: LETROZOLE 2.5 MG PO SCH (08:25)
[2020-11-07] MEDS: TRELEGY ELLIPTA INH SCH (08:26)
[2020-11-07] MEDS: FEXOFENADINE 180 MG PO SCH (08:26)
[2020-11-07] MEDS: methylPREDNISolone Sodium Succinate 125 MG/2 ML SDV IVPUSH SCH ×2 (10:27→17:40)
--- NOTE | 2020-11-07 11:25 | PCM.PN ---
- General Info Date of Service: 11/07/20 Functional Status: Reports: Pain Controlled, Urinating. Denies: New Symptoms - Review of Systems General: Reports: Weakness. Denies: Fever, Chills HEENT: Reports: No Symptoms Pulmonary: Reports: Shortness of Breath, Cough. Denies: Sputum, Wheezing Cardiovascular: Reports: Edema (lower legs) Gastrointestinal: Reports: No Symptoms Genitourinary: Reports: No Symptoms Musculoskeletal: Reports: No Symptoms Skin: Reports: No Symptoms Neurological: Reports: No Symptoms Psychiatric: Reports: No Symptoms - Patient Data Vitals - Most Recent: Last Vital Signs Temp 97.5 F 11/07/20 06:47 Pulse 97 11/07/20 10:26 Resp 20 11/07/20 06:47 BP 129/69 11/07/20 06:47 Pulse Ox 96 11/07/20 10:26 Weight - Most Recent: 185 lb 3.013 oz I&O - Last 24 Hours: Intake & Output 11/06/20 11/07/20 11/07/20 22:59 06:59 14:59 Intake Total 500 1650 Balance 500 1650 Lab Results Last 24 Hours: Laboratory Results - last 24 hr 11/07/20 11/07/20 11/07/20 Range/Units 07:25 07:25 07:25 WBC 12.48 H (5.00-10.00) 10^3/uL RBC 3.33 L (3.80-5.50) 10^6/uL Hgb 9.2 L (12.0-16.0) g/dL Hct 28.5 L (37.0-47.0) % MCV 85.6 (82.0-92.0) fL MCH 27.6 (27.0-31.0) pg MCHC 32.3 (32.0-36.0) g/dL RDW 17.5 H (11.5-14.5) % Plt Count 339 (150-400) 10^3/uL MPV 10.0 (7.4-10.4) fL Immature Gran % (Auto) 0.7 (0.0-5.0) % Neut % (Auto) 60.0 (50.0-70.0) % Lymph % (Auto) 23.6 (20.0-40.0) % [place] % (Auto) 12.8 H (2.0-8.0) % Eos % (Auto) 2.7 (1.0-3.0) % Baso % (Auto) 0.2 (0.0-1.0) % Neut # (Auto) 7.47 H (2.50-7.00) 10^3/uL Lymph # (Auto) 2.95 (1.00-4.00) 10^3/uL [place] # (Auto) 1.60 H (0.10-0.80) 10^3/uL Eos # (Auto) 0.34 H (0.10-0.30) 10^3/uL Baso # (Auto) 0.03 (0.00-0.10) 10^3/uL Immature Gran # (Auto) 0.09 (0.00-0.50) 10^3/uL Sodium 135 L (136-145) mmol/L Potassium 3.7 (3.5-5.1) mmol/L Chloride 104 (98-107) mmol/L Carbon Dioxide 21.9 (21.0-32.0) mmol/L Anion Gap 12.8 (5-15) mmol/L BUN 15 (7-18) mg/dL Creatinine 1.03 (0.51-1.17) mg/dL Est Cr Clr Drug Dosing 37.84 mL/min Estimated GFR (MDRD) 52 mL/min Glucose 75 (70-140) mg/dL Lactic Acid 2.2 H (0.4-2.0) mmol/L Calcium 8.2 L (8.7-10.3) mg/dL Total Bilirubin 0.3 (0.2-1.0) mg/dL AST 21 (15-37) U/L ALT 27 (14-63) U/L Alkaline Phosphatase 100 (46-116) U/L Total Protein 5.7 L (6.4-8.2) g/dL Albumin 2.11 L (3.40-5.00) g/dL Steven Results Last 24 Hours: Microbiology 11/04/20 21:45 Aerobic Blood Culture - Preliminary Blood - Venous NO GROWTH AFTER 2 DAYS Anaerobic Blood Culture - Preliminary NO GROWTH AFTER 2 DAYS 11/04/20 16:00 Aerobic Blood Culture - Preliminary Blood - Venous - Lab Draw NO GROWTH AFTER 2 DAYS Anaerobic Blood Culture - Preliminary NO GROWTH AFTER 2 DAYS Med Orders - Current: Current Medications Acetaminophen (Acetaminophen 500 Mg Tab) 1,000 mg PO BID [facility] Last Admin: 11/07/20 08:18 Dose: 1,000 mg Documented by: Acetaminophen (Acetaminophen 325 Mg Tab) 650 mg PO Q4H PRN PRN Reason: Pain Albuterol/Ipratropium (Albuterol/Ipratropium 3.0-0.5 Mg/3 Ml Neb Soln) 3 ml INH ONETIME PRN PRN Reason: SHORTNESS OF BREATH Albuterol/Ipratropium (Albuterol/Ipratropium 3.0-0.5 Mg/3 Ml Neb Soln) 3 ml INH TIDRT [facility] Last Admin: 11/07/20 10:26 Dose: 3 ml Documented by: Allopurinol (Allopurinol 100 Mg Tab) 100 mg PO BID [facility] Last Admin: 11/07/20 08:18 Dose: 100 mg Documented by: Atorvastatin Calcium (Atorvastatin 10 Mg Tab) 10 mg PO BEDTIME [facility] Last Admin: 11/06/20 20:22 Dose: Not Given Documented by: Cetirizine HCl (Cetirizine 10 Mg Tab) 10 mg PO DAILY [facility] Docusate Sodium (Docusate Sodium 100 Mg Cap) 100 mg PO BID@0800,1800 [facility] Last Admin: 11/07/20 08:18 Dose: 100 mg Documented by: Levofloxacin/Dextrose 500 mg/ (Premix) 100 mls @ 100 mls/hr IV Q48H [facility] Last Admin: 11/06/20 17:29 Dose: 100 mls/hr Documented by: Levofloxacin/Dextrose 250 mg/ (Premix) 50 mls @ 50 mls/hr IV Q48H [facility] Last Admin: 11/06/20 16:19 Dose: 50 mls/hr Documented by: Sodium Chloride (Normal Saline) 1,000 mls @ 100 mls/hr IV ASDIRECTED [facility] Last Admin: 11/07/20 04:17 Dose: 100 mls/hr Documented by: Levothyroxine Sodium (Levothyroxine 88 Mcg Tab) 44 mcg PO Q48H [facility] Last Admin: 11/07/20 07:56 Dose: 44 mcg Documented by: Levothyroxine Sodium (Levothyroxine 88 Mcg Tab) 88 mcg PO Q48H [facility] Last Admin: 11/06/20 06:35 Dose: Not Given Documented by: Methylprednisolone Sodium Succinate (Methylprednisolone Sodium Succinate 125 Mg/2 Ml Sdv) 40 mg IVPUSH Q8H [facility] Last Admin: 11/07/20 10:27 Dose: 40 mg Documented by: Bupropion Hcl 300mg (Er Tablet - Ptom) 300 each PO DAILY [facility] Last Admin: 11/07/20 08:24 Dose: 300 each Documented by: Divalproex Sodium [ Depakote Er] 500 Mg Tab.Er.24h Own Med 1,000 mg PO BEDTIME [facility] Last Admin: 11/06/20 20:22 Dose: Not Given Documented by: Treyuli Ellipta 100mcg/62.5mcg/25mcg -Ptom 1 each INH DAILY [facility] Last Admin: 11/07/20 08:26 Dose: 1 each Documented by: Letrozole 2.5 Mg (Tablet - Ptom) 2.5 mg PO DAILY [facility] Last Admin: 11/07/20 08:25 Dose: 2.5 mg Documented by: Lurasidone 80 Mg (Tablet Own Med ) 80 mg PO BEDTIME [facility] Last Admin: 11/06/20 20:22 Dose: Not Given Documented by: Nystatin (Nystatin Topical Powder 15 Gm Bottle) 15 gm TOP TID PRN PRN Reason: Inflammation Ondansetron HCl (Ondansetron 4 Mg Tab.Dis) 4 mg PO Q6H PRN PRN Reason: Nausea/Vomiting Last Admin: 11/05/20 20:45 Dose: 4 mg Documented by: Pantoprazole Sodium (Pantoprazole 40 Mg Tab.Cr) 40 mg PO BEDTIME [facility] Last Admin: 11/06/20 20:15 Dose: 40 mg Documented by: Polysaccharide Iron Complex (Iron Polysaccharides Complex 150 Mg Cap) 150 mg PO DAILY [facility] Last Admin: 11/07/20 08:18 Dose: 150 mg Documented by: Senna/Docusate Sodium (Docusate Sodium/Sennosides 50-8.6 Mg Tab) 2 tab PO BID [facility] Last Admin: 11/07/20 08:18 Dose: 2 tab Documented by: Sertraline HCl (Sertraline 50 Mg Tab) 100 mg PO DAILY [facility] Last Admin: 11/07/20 08:18 Dose: 100 mg Documented by: Sodium Chloride (Sodium Chloride 0.9% 10 Ml Syringe) 10 ml FLUSH Q8HR PRN PRN Reason: keep vein open Tramadol HCl (Tramadol 50 Mg Tab) 50 mg PO [facility] Last Admin: 11/07/20 07:56 Dose: 50 mg Documented by: Discontinued Medications Albuterol/Ipratropium (Albuterol/Ipratropium 3.0-0.5 Mg/3 Ml Neb Soln) 3 ml INH BIDRT [facility] Last Admin: 11/05/20 10:46 Dose: 3 ml Documented by: Albuterol/Ipratropium (Albuterol/Ipratropium 3.0-0.5 Mg/3 Ml Neb Soln -Ptom) 3 ml INH ONETIME PRN PRN Reason: SHORTNESS OF BREATH Albuterol/Ipratropium (Albuterol/Ipratropium 3.0-0.5 Mg/3 Ml Neb Soln) 3 ml INH BIDRT [facility] Last Admin: 11/07/20 07:56 Dose: 3 ml Documented by: Ceftriaxone Sodium (Ceftriaxone 1 Gm Vial) 1 gm IVPUSH ONETIME ONE Stop: 11/04/20 22:35 Last Admin: 11/04/20 23:03 Dose: Not Given Documented by: Guaifenesin/Phenylephrine HCl (Guaifenesin/Dextromethorphan 100-10 Mg/5 Ml Soln 5 Ml Cup) 10 ml PO Q4H PRN PRN Reason: Cough Last Admin: 11/07/20 04:08 Dose: 10 ml Documented by: Dextrose/Sodium Chloride (Dextrose 5%-1/2 Ns) 1,000 mls @ 200 mls/hr IV ASDIRECTED [facility] Last Admin: 11/05/20 05:15 Dose: 200 mls/hr Documented by: Levofloxacin/Dextrose (Levaquin In D5w 500 Mg/100 Ml) Confirm Administered Dose 100 mls @ as directed IV .STK-MED ONE Stop: 11/04/20 17:20 Last Admin: 11/04/20 17:32 Dose: Not Given Documented by: Sodium Chloride (Normal Saline) 500 mls @ 500 mls/hr IV .BOLUS [facility] Last Admin: 11/04/20 23:12 Dose: 500 mls/hr Documented by: Vancomycin HCl 1.25 gm/ Sodium (Chloride) 250 mls @ 166.667 mls/hr IV Q24H [facility] Last Admin: 11/04/20 23:47 Dose: Not Given Documented by: Vancomycin HCl 1.25 gm/ Sodium (Chloride) 250 mls @ 166.667 mls/hr IV Q24H [facility] Last Admin: 11/05/20 22:45 Dose: 166.667 mls/hr Documented by: Vancomycin HCl 1.75 gm/ Sodium (Chloride) 250 mls @ 100 mls/hr IV ONETIME ONE Stop: 11/05/20 01:29 Last Admin: 11/05/20 00:07 Dose: 100 mls/hr Documented by: Levothyroxine Sodium (Levothyroxine 88 Mcg Tab) 44 mcg PO ONETIME ONE Stop: 11/05/20 12:01 Last Admin: 11/05/20 12:13 Dose: 44 mcg Documented by: Fexofenadine 180 Mg (Tablet - Ptom) 180 mg PO DAILY [facility] Last Admin: 11/07/20 08:26 Dose: 180 mg Documented by: Sertraline HCl (Sertraline 50 Mg Tab - Ptom) 100 mg PO DAILY [facility] Last Admin: 11/05/20 10:45 Dose: 100 mg Documented by: - Exam Quality Assessment: DVT Prophylaxis. No: Supplemental Oxygen General: Alert, Oriented, Cooperative, No Acute Distress HEENT: Pupils Equal, Mucous Membr. Moist/[place] Neck: Supple Lungs: Decreased Breath Sounds, Rhonchi. No: Crackles, Wheezing Cardiovascular: Regular Rate, Regular Rhythm, No Murmurs GI/Abdominal Exam: Normal Bowel Sounds, Soft, Non-Tender, No Distention (Female) Exam: Deferred Back Exam: Normal Inspection Extremities: Non-Tender, Normal Capillary Refill, Pedal Edema (1+ to bilateral lower extremitites) Peripheral Pulses: 2+: Dorsalis Pedis (L), Dorsalis Pedis (R) Skin: Warm, Dry, Intact Neurological: No New Focal Deficit Psy/Mental Status: Alert, Normal Affect, Normal Mood - Patient Data Lab Results Last 24 hrs: Laboratory Results - last 24 hr 11/07/20 11/07/20 11/07/20 Range/Units 07:25 07:25 07:25 WBC 12.48 H (5.00-10.00) 10^3/uL RBC 3.33 L (3.80-5.50) 10^6/uL Hgb 9.2 L (12.0-16.0) g/dL Hct 28.5 L (37.0-47.0) % MCV 85.6 (82.0-92.0) fL MCH 27.6 (27.0-31.0) pg MCHC 32.3 (32.0-36.0) g/dL RDW 17.5 H (11.5-14.5) % Plt Count 339 (150-400) 10^3/uL MPV 10.0 (7.4-10.4) fL Immature Gran % (Auto) 0.7 (0.0-5.0) % Neut % (Auto) 60.0 (50.0-70.0) % Lymph % (Auto) 23.6 (20.0-40.0) % [place] % (Auto) 12.8 H (2.0-8.0) % Eos % (Auto) 2.7 (1.0-3.0) % Baso % (Auto) 0.2 (0.0-1.0) % Neut # (Auto) 7.47 H (2.50-7.00) 10^3/uL Lymph # (Auto) 2.95 (1.00-4.00) 10^3/uL [place] # (Auto) 1.60 H (0.10-0.80) 10^3/uL Eos # (Auto) 0.34 H (0.10-0.30) 10^3/uL Baso # (Auto) 0.03 (0.00-0.10) 10^3/uL Immature Gran # (Auto) 0.09 (0.00-0.50) 10^3/uL Sodium 135 L (136-145) mmol/L Potassium 3.7 (3.5-5.1) mmol/L Chloride 104 (98-107) mmol/L Carbon Dioxide 21.9 (21.0-32.0) mmol/L Anion Gap 12.8 (5-15) mmol/L BUN 15 (7-18) mg/dL Creatinine 1.03 (0.51-1.17) mg/dL Est Cr Clr Drug Dosing 37.84 mL/min Estimated GFR (MDRD) 52 mL/min Glucose 75 (70-140) mg/dL Lactic Acid 2.2 H (0.4-2.0) mmol/L Calcium 8.2 L (8.7-10.3) mg/dL Total Bilirubin 0.3 (0.2-1.0) mg/dL AST 21 (15-37) U/L ALT 27 (14-63) U/L Alkaline Phosphatase 100 (46-116) U/L Total Protein 5.7 L (6.4-8.2) g/dL Albumin 2.11 L (3.40-5.00) g/dL Result Diagrams: 11/07/20 07:25 11/07/20 07:25 Steven Results Last 24 hrs: Microbiology 11/04/20 21:45 Aerobic Blood Culture - Preliminary Blood - Venous NO GROWTH AFTER 2 DAYS Anaerobic Blood Culture - Preliminary NO GROWTH AFTER 2 DAYS 11/04/20 16:00 Aerobic Blood Culture - Preliminary Blood - Venous - Lab Draw NO GROWTH AFTER 2 DAYS Anaerobic Blood Culture - Preliminary NO GROWTH AFTER 2 DAYS Sepsis Event Note - Evaluation Sepsis Screening Result: No Definite Risk - Focused Exam Vital Signs: Vital Signs Temp Pulse Resp BP Pulse Ox Pulse Ox 11/07/20 10:26 97 96 11/07/20 06:47 97.5 F 113 H 20 129/69 90 L 11/07/20 03:07 98.9 F 111 H 20 133/54 L 91 L - Problem List Review Problem List Initiated/Reviewed/Updated: Yes - My Orders Last 24 Hours: My Active Orders 11/07/20 10:00 Albuterol/Ipratropium [DuoNeb 3.0-0.5 MG/3 ML] 3 ml INH TIDRT methylPREDNISolone Sod Succ [Solu-MEDROL] 40 mg IVPUSH Q8H 11/08/20 09:00 Cetirizine [ZyrTEC] 10 mg PO DAILY - Plan Plan:: HPI summary: Ms Bennett is a 75yF directly admitted from [facility] per Cele Isidro PA-C for symptoms suggestive of pneumonia. Patient who is a resident of [facility] in [place] and was seen as follow up of a recent pneumonia. She has completed a 5-day coarse of DUAL antibiotics cephalosporin & doxycycline, as well as lasix, however despite tx has continued to cough with green mucus. Subjectively she complained of ongoing fatigue/SOB/lower extremity edema/weakness/cough. Covid negative prior to admission. Hospital course: 11/05/2020, this morning on rounds patient looks good, oxygen saturations good, improving blood pressure, no fever, alert, green mucus cough with rhonchi, adequate output 11/06/20: No calls overnight. Patient reports feeling somewhat better this morning. Cough with green sputum continues per patient. Vitals stable, no supplemental oxygen requirement. Lung sounds clear, diminished. WBC improving, lactic acid normalized upon recheck this am. Hyperalbuminemia, 2.19 will start protein supplementation. 11/07/20: Persistent coughing overnight, reports her lungs are "crappy." Patient remains on room air. Vitals stable. Lung sounds diminished, rhonchi. Edema to BLE +1. WBC 12.48, elevated monocytes at 12.8%, neutrophils normal - suggestive of inflammatory process. Will continue levaquin to cover for bacterial etiology though this appears less likely. Hospitalization problems and plan: # COPD # Non-small cell lung CA bilaterally # Elevated lactic acid - slight increase to 2.2 today, suspect inflammatory process # Leukocytosis - elevated monocytes today 12.8%, Neutrophils normal # Possible pneumonia - CXR not overly impressive for pulmonary etiology, however. - Continue trelegy - Increase duonebs to TID scheduled today, and PRN - Start solumedrol 40mg IV TID today, will decrease to BID tomorrow (11/08/20) - Continue levaquin 750mg IV Q48H due to renal insufficiency for possible bacterial etiology x 7 day course - DC'd vancomycin last night, BC NGTD x 2 days - Sputum culture remains uncollected - patient swallowing sputum - Incentive spirometry 10x/H while awake - Repeat CBC, CMP, CRP and LA in am # Hypoalbuminemia; 2.11 - Continue protein supplementation Chronic, stable conditions: # HFpEF - chronic, metoprolol tartrate 12.5mg PO BID. Last echo 10/25/16 - EF 75%, grade 1 diastolic dysfunction # CKD stage IIIb Avoid NSAID and IV contrast, Low Sodium diet. 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 Follows with oncology, [facility] Hospitalization details: # FEN: NS @ 100ml/hr, electrolytes stable, regular diet # PPX: Lovenox 40mg subq daily, protonix 40mg PO daily # Code status: FULL CODE # Emergency contact: Zeynep Kaiser [phone] # Disposition: Will continue inpatient status due to pending blood cultures, IV antibiotics and starting IV steroids. Labs improving, vitals stable. Discharge to be determined based on clinical course
[2020-11-07] MEDS: Enoxaparin 40 MG/0.4 ML Syringe SUBCUT SCH (11:57)
[2020-11-07] MEDS: atorvaSTATin 10 MG Tab PO SCH (20:47)
[2020-11-07] MEDS: Pantoprazole 40 MG Tab.CR PO SCH (20:47)
[2020-11-07] MEDS: DIVALPROEX SODIUM 500 MG PO SCH (20:48)
[2020-11-07] MEDS: LURASIDONE 80 MG PO SCH (20:48)
[2020-11-07] MEDS: guaiFENesin 600 MG Tab.ER PO SCH (22:50)
[2020-11-08] MEDS: Sodium Chloride 0.9% 1,000 ML IV SCH (00:24)
[2020-11-08] MEDS: methylPREDNISolone Sodium Succinate 125 MG/2 ML SDV IVPUSH SCH ×3 (02:08→20:02)
[2020-11-08] MEDS: traMADol 50 MG Tab PO SCH ×2 (06:04→20:00)
[2020-11-08] MEDS: Levothyroxine 88 MCG Tab PO SCH ×2 (06:04→06:30)
[2020-11-08] MEDS: Albuterol/Ipratropium 3.0-0.5 MG/3 ML Neb Soln INH SCH ×4 (06:39→18:08)
[2020-11-08] MEDS: Docusate Sodium 100 MG Cap PO SCH ×2 (08:24→17:47)
[2020-11-08] MEDS: Cetirizine 10 MG Tab PO SCH (08:24)
[2020-11-08] MEDS: Sertraline 50 MG Tab PO SCH (08:24)
[2020-11-08] MEDS: Acetaminophen 500 MG Tab PO SCH ×2 (08:24→20:00)
[2020-11-08] MEDS: Iron Polysaccharides Complex 150 MG Cap PO SCH (08:24)
[2020-11-08] MEDS: guaiFENesin 600 MG Tab.ER PO SCH ×2 (08:25→20:00)
[2020-11-08] MEDS: Allopurinol 100 MG Tab PO SCH ×2 (08:25→20:00)
[2020-11-08] MEDS: TRELEGY ELLIPTA INH SCH (08:26)
[2020-11-08] MEDS: LETROZOLE 2.5 MG PO SCH (08:27)
[2020-11-08] MEDS: BUPROPION HCL 300 MG PO SCH (08:29)
[2020-11-08 08:39] LABS: CHLORIDE,CL 107 mmol/L (98-107); SODIUM,NA 139 mmol/L (138-146)
[2020-11-08] MEDS ORDERED: Furosemide 40 MG/4 ML VIAL IVPUSH ONE (11:00)
[2020-11-08] MEDS: Enoxaparin 40 MG/0.4 ML Syringe SUBCUT SCH (11:06)
[2020-11-08] MEDS ORDERED: Sodium Chloride 0.9% 100 ML IV SCH (11:45)
--- NOTE | 2020-11-08 12:51 | PCM.PN ---
- General Info Date of Service: 11/08/20 Functional Status: Reports: Pain Controlled, Urinating, New Symptoms (increased leg swelling), Incentive Spirometry - Review of Systems General: Reports: Weakness, Fatigue. Denies: Fever, Chills HEENT: Reports: No Symptoms Pulmonary: Reports: Shortness of Breath (improving), Cough. Denies: Sputum, Wheezing Cardiovascular: Reports: Edema (increased from yesterday, legs shiny). Denies: Chest Pain, Palpitations Gastrointestinal: Reports: No Symptoms. Denies: Abdominal Pain, Constipation, Diarrhea, Nausea Genitourinary: Reports: No Symptoms Musculoskeletal: Reports: No Symptoms Skin: Reports: No Symptoms Neurological: Reports: No Symptoms Psychiatric: Reports: No Symptoms - Patient Data Vitals - Most Recent: Last Vital Signs Temp 96.8 F L 11/08/20 06:37 Pulse 96 11/08/20 06:39 Resp 20 11/08/20 06:37 BP 112/68 11/08/20 06:37 Pulse Ox 93 L 11/08/20 06:39 Weight - Most Recent: 185 lb 3.013 oz I&O - Last 24 Hours: Intake & Output 11/07/20 11/08/20 11/08/20 22:59 06:59 14:59 Intake Total 1207 1341 Balance 1207 1341 Lab Results Last 24 Hours: Laboratory Results - last 24 hr 11/08/20 11/08/20 11/08/20 Range/Units 08:05 08:05 08:05 WBC 12.19 H (5.00-10.00) 10^3/uL RBC 3.56 L (3.80-5.50) 10^6/uL Hgb 9.6 L (12.0-16.0) g/dL Hct 30.7 L (37.0-47.0) % MCV 86.2 (82.0-92.0) fL MCH 27.0 (27.0-31.0) pg MCHC 31.3 L (32.0-36.0) g/dL RDW 18.1 H (11.5-14.5) % Plt Count 320 (150-400) 10^3/uL MPV 10.0 (7.4-10.4) fL Immature Gran % (Auto) 0.7 (0.0-5.0) % Neut % (Auto) 85.7 H (50.0-70.0) % Lymph % (Auto) 10.9 L (20.0-40.0) % Pope % (Auto) 2.7 (2.0-8.0) % Eos % (Auto) 0.0 L (1.0-3.0) % Baso % (Auto) 0.0 (0.0-1.0) % Neut # (Auto) 10.44 H (2.50-7.00) 10^3/uL Lymph # (Auto) 1.33 (1.00-4.00) 10^3/uL Pope # (Auto) 0.33 (0.10-0.80) 10^3/uL Eos # (Auto) 0.00 L (0.10-0.30) 10^3/uL Baso # (Auto) 0.00 (0.00-0.10) 10^3/uL Immature Gran # (Auto) 0.09 (0.00-0.50) 10^3/uL Sodium 139 (138-146) mmol/L Potassium 4.1 (3.5-4.5) mmol/L Chloride 107 (98-107) mmol/L Carbon Dioxide 20.1 L (21.0-32.0) mmol/L Anion Gap 16.0 H (5-15) mmol/L BUN 14 (7-18) mg/dL Creatinine 0.88 (0.51-1.17) mg/dL Est Cr Clr Drug Dosing 44.29 mL/min Estimated GFR (MDRD) > 60 mL/min Glucose 116 (70-140) mg/dL Lactic Acid 3.5 H (0.4-2.0) mmol/L Calcium 8.1 L (8.7-10.3) mg/dL Total Bilirubin 0.2 (0.2-1.0) mg/dL AST 19 (15-37) U/L ALT 27 (14-63) U/L Alkaline Phosphatase 92 (46-116) U/L B-Natriuretic Peptide (0-100) pg/mL Total Protein 5.8 L (6.4-8.2) g/dL Albumin 2.09 L (3.40-5.00) g/dL 11/08/20 Range/Units 08:05 WBC (5.00-10.00) 10^3/uL RBC (3.80-5.50) 10^6/uL Hgb (12.0-16.0) g/dL Hct (37.0-47.0) % MCV (82.0-92.0) fL MCH (27.0-31.0) pg MCHC (32.0-36.0) g/dL RDW (11.5-14.5) % Plt Count (150-400) 10^3/uL MPV (7.4-10.4) fL Immature Gran % (Auto) (0.0-5.0) % Neut % (Auto) (50.0-70.0) % Lymph % (Auto) (20.0-40.0) % Pope % (Auto) (2.0-8.0) % Eos % (Auto) (1.0-3.0) % Baso % (Auto) (0.0-1.0) % Neut # (Auto) (2.50-7.00) 10^3/uL Lymph # (Auto) (1.00-4.00) 10^3/uL Pope # (Auto) (0.10-0.80) 10^3/uL Eos # (Auto) (0.10-0.30) 10^3/uL Baso # (Auto) (0.00-0.10) 10^3/uL Immature Gran # (Auto) (0.00-0.50) 10^3/uL Sodium (138-146) mmol/L Potassium (3.5-4.5) mmol/L Chloride (98-107) mmol/L Carbon Dioxide (21.0-32.0) mmol/L Anion Gap (5-15) mmol/L BUN (7-18) mg/dL Creatinine (0.51-1.17) mg/dL Est Cr Clr Drug Dosing mL/min Estimated GFR (MDRD) mL/min Glucose (70-140) mg/dL Lactic Acid (0.4-2.0) mmol/L Calcium (8.7-10.3) mg/dL Total Bilirubin (0.2-1.0) mg/dL AST (15-37) U/L ALT (14-63) U/L Alkaline Phosphatase (46-116) U/L B-Natriuretic Peptide 395 H (0-100) pg/mL Total Protein (6.4-8.2) g/dL Albumin (3.40-5.00) g/dL Steven Results Last 24 Hours: Microbiology 11/04/20 21:45 Aerobic Blood Culture - Preliminary Blood - Venous NO GROWTH AFTER 3 DAYS Anaerobic Blood Culture - Preliminary NO GROWTH AFTER 3 DAYS 11/04/20 16:00 Aerobic Blood Culture - Preliminary Blood - Venous - Lab Draw NO GROWTH AFTER 3 DAYS Anaerobic Blood Culture - Preliminary NO GROWTH AFTER 3 DAYS Med Orders - Current: Current Medications Acetaminophen (Acetaminophen 500 Mg Tab) 1,000 mg PO BID [facility] Last Admin: 11/08/20 08:24 Dose: 1,000 mg Documented by: Acetaminophen (Acetaminophen 325 Mg Tab) 650 mg PO Q4H PRN PRN Reason: Pain Albuterol/Ipratropium (Albuterol/Ipratropium 3.0-0.5 Mg/3 Ml Neb Soln) 3 ml INH ONETIME PRN PRN Reason: SHORTNESS OF BREATH Albuterol/Ipratropium (Albuterol/Ipratropium 3.0-0.5 Mg/3 Ml Neb Soln) 3 ml INH TIDRT [facility] Last Admin: 11/08/20 06:39 Dose: 3 ml Documented by: Allopurinol (Allopurinol 100 Mg Tab) 100 mg PO BID [facility] Last Admin: 11/08/20 08:25 Dose: 100 mg Documented by: Atorvastatin Calcium (Atorvastatin 10 Mg Tab) 10 mg PO BEDTIME [facility] Last Admin: 11/07/20 20:47 Dose: 10 mg Documented by: Cetirizine HCl (Cetirizine 10 Mg Tab) 10 mg PO DAILY [facility] Last Admin: 11/08/20 08:24 Dose: 10 mg Documented by: Docusate Sodium (Docusate Sodium 100 Mg Cap) 100 mg PO BID@0800,1800 [facility] Last Admin: 11/08/20 08:24 Dose: 100 mg Documented by: Enoxaparin Sodium (Enoxaparin 40 Mg/0.4 Ml Syringe) 40 mg SUBCUT Q24H [facility] Last Admin: 11/08/20 11:06 Dose: 40 mg Documented by: Guaifenesin (Guaifenesin 600 Mg Tab.Er) 600 mg PO BID [facility] Last Admin: 11/08/20 08:25 Dose: 600 mg Documented by: Levofloxacin/Dextrose 500 mg/ (Premix) 100 mls @ 100 mls/hr IV Q48H [facility] Last Admin: 11/06/20 17:29 Dose: 100 mls/hr Documented by: Levofloxacin/Dextrose 250 mg/ (Premix) 50 mls @ 50 mls/hr IV Q48H [facility] Last Admin: 11/06/20 16:19 Dose: 50 mls/hr Documented by: Sodium Chloride (Normal Saline) 100 mls @ 100 mls/hr IV ASDIRECTED [facility] Levothyroxine Sodium (Levothyroxine 88 Mcg Tab) 44 mcg PO Q48H [facility] Last Admin: 11/07/20 07:56 Dose: 44 mcg Documented by: Levothyroxine Sodium (Levothyroxine 88 Mcg Tab) 88 mcg PO Q48H [facility] Last Admin: 11/08/20 06:30 Dose: Not Given Documented by: Methylprednisolone Sodium Succinate (Methylprednisolone Sodium Succinate 125 Mg/2 Ml Sdv) 40 mg IVPUSH BID [facility] Bupropion Hcl 300mg (Er Tablet - Ptom) 300 each PO DAILY [facility] Last Admin: 11/08/20 08:29 Dose: 300 each Documented by: Divalproex Sodium [ Depakote Er] 500 Mg Tab.Er.24h Own Med 1,000 mg PO BEDTIME [facility] Last Admin: 11/07/20 20:48 Dose: 1,000 mg Documented by: Vu Ellipta 100mcg/62.5mcg/25mcg -Ptom 1 each INH DAILY [facility] Last Admin: 11/08/20 08:26 Dose: 1 each Documented by: Letrozole 2.5 Mg (Tablet - Ptom) 2.5 mg PO DAILY [facility] Last Admin: 11/08/20 08:27 Dose: 2.5 mg Documented by: Lurasidone 80 Mg (Tablet Own Med ) 80 mg PO BEDTIME [facility] Last Admin: 11/07/20 20:48 Dose: 80 mg Documented by: Nystatin (Nystatin Topical Powder 15 Gm Bottle) 15 gm TOP TID PRN PRN Reason: Inflammation Ondansetron HCl (Ondansetron 4 Mg Tab.Dis) 4 mg PO Q6H PRN PRN Reason: Nausea/Vomiting Last Admin: 11/05/20 20:45 Dose: 4 mg Documented by: Pantoprazole Sodium (Pantoprazole 40 Mg Tab.Cr) 40 mg PO BEDTIME [facility] Last Admin: 11/07/20 20:47 Dose: 40 mg Documented by: Polysaccharide Iron Complex (Iron Polysaccharides Complex 150 Mg Cap) 150 mg PO DAILY [facility] Last Admin: 11/08/20 08:24 Dose: 150 mg Documented by: Senna/Docusate Sodium (Docusate Sodium/Sennosides 50-8.6 Mg Tab) 2 tab PO BID [facility] Last Admin: 11/08/20 08:25 Dose: 2 tab Documented by: Sertraline HCl (Sertraline 50 Mg Tab) 100 mg PO DAILY [facility] Last Admin: 11/08/20 08:24 Dose: 100 mg Documented by: Sodium Chloride (Sodium Chloride 0.9% 10 Ml Syringe) 10 ml FLUSH Q8HR PRN PRN Reason: keep vein open Tramadol HCl (Tramadol 50 Mg Tab) 50 mg PO 699,1999 [facility] Last Admin: 11/08/20 06:04 Dose: 50 mg Documented by: Discontinued Medications Albuterol/Ipratropium (Albuterol/Ipratropium 3.0-0.5 Mg/3 Ml Neb Soln) 3 ml INH BIDRT [facility] Last Admin: 11/05/20 10:46 Dose: 3 ml Documented by: Albuterol/Ipratropium (Albuterol/Ipratropium 3.0-0.5 Mg/3 Ml Neb Soln -Ptom) 3 ml INH ONETIME PRN PRN Reason: SHORTNESS OF BREATH Albuterol/Ipratropium (Albuterol/Ipratropium 3.0-0.5 Mg/3 Ml Neb Soln) 3 ml INH BIDRT [facility] Last Admin: 11/07/20 07:56 Dose: 3 ml Documented by: Ceftriaxone Sodium (Ceftriaxone 1 Gm Vial) 1 gm IVPUSH ONETIME ONE Stop: 11/04/20 22:35 Last Admin: 11/04/20 23:03 Dose: Not Given Documented by: Furosemide (Furosemide 40 Mg/4 Ml Vial) 20 mg IVPUSH NOW ONE Stop: 11/08/20 11:01 Last Admin: 11/08/20 11:18 Dose: 20 mg Documented by: Guaifenesin/Phenylephrine HCl (Guaifenesin/Dextromethorphan 100-10 Mg/5 Ml Soln 5 Ml Cup) 10 ml PO Q4H PRN PRN Reason: Cough Last Admin: 11/07/20 04:08 Dose: 10 ml Documented by: Dextrose/Sodium Chloride (Dextrose 5%-1/2 Ns) 1,000 mls @ 200 mls/hr IV ASDIRECTED [facility] Last Admin: 11/05/20 05:15 Dose: 200 mls/hr Documented by: Levofloxacin/Dextrose (Levaquin In D5w 500 Mg/100 Ml) Confirm Administered Dose 100 mls @ as directed IV .STK-MED ONE Stop: 11/04/20 17:20 Last Admin: 11/04/20 17:32 Dose: Not Given Documented by: Sodium Chloride (Normal Saline) 500 mls @ 500 mls/hr IV .BOLUS [facility] Last Admin: 11/04/20 23:12 Dose: 500 mls/hr Documented by: Vancomycin HCl 1.25 gm/ Sodium (Chloride) 250 mls @ 166.667 mls/hr IV Q24H [facility] Last Admin: 11/04/20 23:47 Dose: Not Given Documented by: Vancomycin HCl 1.25 gm/ Sodium (Chloride) 250 mls @ 166.667 mls/hr IV Q24H [facility] Last Admin: 11/05/20 22:45 Dose: 166.667 mls/hr Documented by: Vancomycin HCl 1.75 gm/ Sodium (Chloride) 250 mls @ 100 mls/hr IV ONETIME ONE Stop: 11/05/20 01:29 Last Admin: 11/05/20 00:07 Dose: 100 mls/hr Documented by: Sodium Chloride (Normal Saline) 1,000 mls @ 100 mls/hr IV ASDIRECTED [facility] Last Admin: 11/08/20 00:24 Dose: 100 mls/hr Documented by: Levothyroxine Sodium (Levothyroxine 88 Mcg Tab) 44 mcg PO ONETIME ONE Stop: 11/05/20 12:01 Last Admin: 11/05/20 12:13 Dose: 44 mcg Documented by: Methylprednisolone Sodium Succinate (Methylprednisolone Sodium Succinate 125 Mg/2 Ml Sdv) 40 mg IVPUSH Q8H [facility] Last Admin: 11/08/20 09:39 Dose: 40 mg Documented by: Fexofenadine 180 Mg (Tablet - Ptom) 180 mg PO DAILY [facility] Last Admin: 11/07/20 08:26 Dose: 180 mg Documented by: Sertraline HCl (Sertraline 50 Mg Tab - Ptom) 100 mg PO DAILY [facility] Last Admin: 11/05/20 10:45 Dose: 100 mg Documented by: - Exam Quality Assessment: DVT Prophylaxis. No: Supplemental Oxygen General: Alert, Oriented, Cooperative, No Acute Distress HEENT: Pupils Equal, Mucous Membr. Moist/[place] Neck: Supple Lungs: Decreased Breath Sounds, Rhonchi. No: Crackles, Wheezing Cardiovascular: Regular Rate, Regular Rhythm, No Murmurs GI/Abdominal Exam: Normal Bowel Sounds, Soft, Non-Tender, No Distention (Female) Exam: Deferred Extremities: Pedal Edema (Edema increased from prior +2 to +3 bilaterally, legs shiny in appearance) Peripheral Pulses: 2+: Dorsalis Pedis (L), Dorsalis Pedis (R) Skin: Warm, Dry, Intact Neurological: No New Focal Deficit Psy/Mental Status: Alert, Normal Affect, Normal Mood - Patient Data Lab Results Last 24 hrs: Laboratory Results - last 24 hr 11/08/20 11/08/20 11/08/20 Range/Units 08:05 08:05 08:05 WBC 12.19 H (5.00-10.00) 10^3/uL RBC 3.56 L (3.80-5.50) 10^6/uL Hgb 9.6 L (12.0-16.0) g/dL Hct 30.7 L (37.0-47.0) % MCV 86.2 (82.0-92.0) fL MCH 27.0 (27.0-31.0) pg MCHC 31.3 L (32.0-36.0) g/dL RDW 18.1 H (11.5-14.5) % Plt Count 320 (150-400) 10^3/uL MPV 10.0 (7.4-10.4) fL Immature Gran % (Auto) 0.7 (0.0-5.0) % Neut % (Auto) 85.7 H (50.0-70.0) % Lymph % (Auto) 10.9 L (20.0-40.0) % Pope % (Auto) 2.7 (2.0-8.0) % Eos % (Auto) 0.0 L (1.0-3.0) % Baso % (Auto) 0.0 (0.0-1.0) % Neut # (Auto) 10.44 H (2.50-7.00) 10^3/uL Lymph # (Auto) 1.33 (1.00-4.00) 10^3/uL Pope # (Auto) 0.33 (0.10-0.80) 10^3/uL Eos # (Auto) 0.00 L (0.10-0.30) 10^3/uL Baso # (Auto) 0.00 (0.00-0.10) 10^3/uL Immature Gran # (Auto) 0.09 (0.00-0.50) 10^3/uL Sodium 139 (138-146) mmol/L Potassium 4.1 (3.5-4.5) mmol/L Chloride 107 (98-107) mmol/L Carbon Dioxide 20.1 L (21.0-32.0) mmol/L Anion Gap 16.0 H (5-15) mmol/L BUN 14 (7-18) mg/dL Creatinine 0.88 (0.51-1.17) mg/dL Est Cr Clr Drug Dosing 44.29 mL/min Estimated GFR (MDRD) > 60 mL/min Glucose 116 (70-140) mg/dL Lactic Acid 3.5 H (0.4-2.0) mmol/L Calcium 8.1 L (8.7-10.3) mg/dL Total Bilirubin 0.2 (0.2-1.0) mg/dL AST 19 (15-37) U/L ALT 27 (14-63) U/L Alkaline Phosphatase 92 (46-116) U/L B-Natriuretic Peptide (0-100) pg/mL Total Protein 5.8 L (6.4-8.2) g/dL Albumin 2.09 L (3.40-5.00) g/dL 11/08/20 Range/Units 08:05 WBC (5.00-10.00) 10^3/uL RBC (3.80-5.50) 10^6/uL Hgb (12.0-16.0) g/dL Hct (37.0-47.0) % MCV (82.0-92.0) fL MCH (27.0-31.0) pg MCHC (32.0-36.0) g/dL RDW (11.5-14.5) % Plt Count (150-400) 10^3/uL MPV (7.4-10.4) fL Immature Gran % (Auto) (0.0-5.0) % Neut % (Auto) (50.0-70.0) % Lymph % (Auto) (20.0-40.0) % Pope % (Auto) (2.0-8.0) % Eos % (Auto) (1.0-3.0) % Baso % (Auto) (0.0-1.0) % Neut # (Auto) (2.50-7.00) 10^3/uL Lymph # (Auto) (1.00-4.00) 10^3/uL Pope # (Auto) (0.10-0.80) 10^3/uL Eos # (Auto) (0.10-0.30) 10^3/uL Baso # (Auto) (0.00-0.10) 10^3/uL Immature Gran # (Auto) (0.00-0.50) 10^3/uL Sodium (138-146) mmol/L Potassium (3.5-4.5) mmol/L Chloride (98-107) mmol/L Carbon Dioxide (21.0-32.0) mmol/L Anion Gap (5-15) mmol/L BUN (7-18) mg/dL Creatinine (0.51-1.17) mg/dL Est Cr Clr Drug Dosing mL/min Estimated GFR (MDRD) mL/min Glucose (70-140) mg/dL Lactic Acid (0.4-2.0) mmol/L Calcium (8.7-10.3) mg/dL Total Bilirubin (0.2-1.0) mg/dL AST (15-37) U/L ALT (14-63) U/L Alkaline Phosphatase (46-116) U/L B-Natriuretic Peptide 395 H (0-100) pg/mL Total Protein (6.4-8.2) g/dL Albumin (3.40-5.00) g/dL Result Diagrams: 11/08/20 08:05 11/08/20 08:05 Steven Results Last 24 hrs: Microbiology 11/04/20 21:45 Aerobic Blood Culture - Preliminary Blood - Venous NO GROWTH AFTER 3 DAYS Anaerobic Blood Culture - Preliminary NO GROWTH AFTER 3 DAYS 11/04/20 16:00 Aerobic Blood Culture - Preliminary Blood - Venous - Lab Draw NO GROWTH AFTER 3 DAYS Anaerobic Blood Culture - Preliminary NO GROWTH AFTER 3 DAYS Sepsis Event Note - Evaluation Sepsis Screening Result: Possible Sepsis Risk - Focused Exam Vital Signs: Vital Signs Temp Pulse Resp BP Pulse Ox Pulse Ox 11/08/20 06:39 96 93 L 11/08/20 06:37 96.8 F L 102 H 20 112/68 96 11/08/20 03:34 96.9 F 89 20 99/59 L 92 L - Problem List Review Problem List Initiated/Reviewed/Updated: Yes - My Orders Last 24 Hours: My Active Orders 11/07/20 22:30 guaiFENesin [Mucinex] 600 mg PO BID 11/08/20 08:05 CRP, HIGH SENSITIVITY [REF] Routine 11/08/20 09:00 Cetirizine [ZyrTEC] 10 mg PO DAILY 11/08/20 11:45 Sodium Chloride 0.9% [Normal Saline] 100 ml IV ASDIRECTED 11/08/20 21:00 methylPREDNISolone Sod Succ [Solu-MEDROL] 40 mg IVPUSH BID 11/09/20 05:11 CBC WITH AUTO DIFF [HEME] AM CMP [COMPREHENSIVE METABOLIC PN,CMP] [CHEM] AM CRP [C-REACTIVE PROTEIN] [CHEM] AM - Plan Plan:: HPI summary: Ms Bennett is a 75yF directly admitted from [facility] per Cele Isidro PA-C for symptoms suggestive of pneumonia. Patient who is a resident of [facility] in [place] and was seen as follow up of a recent pneumonia. She has completed a 5-day coarse of DUAL antibiotics cephalosporin & doxycycline, as well as lasix, however despite tx has continued to cough with green mucus. Subjectively she complained of ongoing fatigue/SOB/lower extremity edema/weakness/cough. Covid negative prior to admission. Hospital course: 11/05/2020, this morning on rounds patient looks good, oxygen saturations good, improving blood pressure, no fever, alert, green mucus cough with rhonchi, adequate output 11/06/20: No calls overnight. Patient reports feeling somewhat better this morning. Cough with green sputum continues per patient. Vitals stable, no aguero pplemental oxygen requirement. Lung sounds clear, diminished. WBC improving, lactic acid normalized upon recheck this am. Hyperalbuminemia, 2.19 will start protein supplementation. 11/07/20: Persistent coughing overnight, reports her lungs are "crappy." Patient remains on room air. Vitals stable. Lung sounds diminished, rhonchi. Edema to BLE +1. WBC 12.48, elevated monocytes at 12.8%, neutrophils normal - suggestive of inflammatory process. Will continue levaquin to cover for bacteri al etiology though this appears less likely. 11/08/20: Patient slept better last night with less coughing. Patient was up to the recliner for breakfast. Reports SOB improved from yesterday, she continues to cough. Vitals stable, oxygen normal on room air. Rhonchi on auscultation. Increased leg swelling noted on exam, legs rather shiny in appearance. Stopped IV fluids, obtained BNP = 395. Lasix IV given today. Hospitalization problems and plan: # HFpEF - chronic, metoprolol tartrate 12.5mg PO BID. Last echo 10/25/16 - EF 75%, grade 1 diastolic dysfunction - BNP elevated today 395 (was 60 on 10/28/20) - IV fluids stopped - Lasix 20mg IV today - Plan for repeat echo after discharge # COPD # Non-small cell lung CA bilaterally # Elevated lactic acid - suspect inflammatory process vs CHF # Leukocytosis - neutrophils increased today, suspect likely related to solumedrol # Possible pneumonia - CXR not overly impressive for pulmonary etiology, however. Suspect bronchitis - Continue trelegy - Increase duonebs to TID scheduled today, and PRN - Continue solumedrol 40mg IV BID today, will plan for oral steroid taper on DC - Continue levaquin 750mg IV Q48H due to renal insufficiency for possible bacterial etiology x 7 day course - Mucinex 600mg PO BID cough - Sputum culture remains uncollected - patient swallowing sputum - Incentive spirometry 10x/H while awake - Repeat CBC, CMP, CRP and LA in am # Hypoalbuminemia; 2.09 - Continue protein supplementation Chronic, stable conditions: # CKD stage IIIb Avoid NSAID and IV contrast, Low Sodium diet. 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 Follows with oncology, [facility] Hospitalization details: # FEN: Stopped IVF due to lower extremity edema, increase in BNP; electrolytes stable, regular diet # PPX: Lovenox 40mg subq daily, protonix 40mg PO daily # Code status: FULL CODE # Emergency contact: Zeynep Kaiser [phone] # Disposition: Will continue inpatient status today for additional IV antibiotics and IV steroids. [facility] based on clinical course.
[2020-11-08] MEDS: Levofloxacin/Dextrose 5%-Water 250 MG in Premix Bag 1 BAG IV SCH (15:20)
[2020-11-08] MEDS: Levofloxacin/Dextrose 5%-Water 500 MG in Premix Bag 1 BAG IV SCH (16:40)
[2020-11-08] MEDS: atorvaSTATin 10 MG Tab PO SCH (20:00)
[2020-11-08] MEDS: Pantoprazole 40 MG Tab.CR PO SCH (20:00)
[2020-11-08] MEDS: DIVALPROEX SODIUM 500 MG PO SCH (20:01)
[2020-11-08] MEDS: LURASIDONE 80 MG PO SCH (20:02)
[2020-11-09] MEDS: traMADol 50 MG Tab PO SCH (06:27)
[2020-11-09] MEDS: Levothyroxine 88 MCG Tab PO SCH (06:30)
[2020-11-09] MEDS: Albuterol/Ipratropium 3.0-0.5 MG/3 ML Neb Soln INH SCH ×2 (06:54→13:18)
[2020-11-09] MEDS: guaiFENesin 600 MG Tab.ER PO SCH (08:23)
[2020-11-09] MEDS: Docusate Sodium 100 MG Cap PO SCH (08:23)
[2020-11-09] MEDS: Iron Polysaccharides Complex 150 MG Cap PO SCH (08:23)
[2020-11-09] MEDS: Acetaminophen 500 MG Tab PO SCH (08:24)
[2020-11-09] MEDS: Allopurinol 100 MG Tab PO SCH (08:24)
[2020-11-09] MEDS: Cetirizine 10 MG Tab PO SCH (08:24)
[2020-11-09] MEDS: Sertraline 50 MG Tab PO SCH (08:24)
[2020-11-09] MEDS: methylPREDNISolone Sodium Succinate 125 MG/2 ML SDV IVPUSH SCH (08:58)
[2020-11-09] MEDS: TRELEGY ELLIPTA INH SCH (09:16)
[2020-11-09] MEDS: BUPROPION HCL 300 MG PO SCH (09:17)
[2020-11-09] MEDS: LETROZOLE 2.5 MG PO SCH (09:18)
[2020-11-09 09:44] LABS: ANION GAP 12.9 mmol/L (5-15)
--- NOTE | 2020-11-09 10:07 | PCM.DCSUM1 ---
Discharge Summary - Hospital Course Free Text/Narrative:: Date of admission: 11/04/20 Date of discharge: 11/09/20 Admission diagnoses: # HFpEF - chronic, metoprolol tartrate 12.5mg PO BID. Last echo 10/25/16 - EF 75%, grade 1 diastolic dysfunction - BNP elevated today 395 (was 60 on 10/28/20) - Lasix 20mg daily - Plan for repeat echo after discharge # COPD # Non-small cell lung CA bilaterally # Elevated lactic acid - suspect inflammatory process vs CHF # Leukocytosis - neutrophils increased today, suspect likely related to solumedrol # Possible pneumonia - CXR not overly impressive for pulmonary etiology, however. Suspect bronchitis - Continue trelegy - Increase duonebs to TID scheduled today, and PRN - plan for oral steroid taper on DC - Complete 7 day course of levaquin with Q48H dosing orally upon discharge - Mucinex 600mg PO BID cough - Incentive spirometry 10x/H while awake # Hypoalbuminemia; 2.09 - Continue protein supplementation Chronic, stable conditions: # CKD stage IIIb Avoid NSAID and IV contrast, Low Sodium diet. 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 Follows with oncology, Lotrozole HPI summary: Ms Bennett is a 75yF directly admitted from [facility] per Cele Isidro PA-C for symptoms suggestive of pneumonia. Patient who is a resident of [facility] in [place] and was seen as follow up of a recent pneumonia. She has completed a 5-day course of DUAL antibiotics cephalosporin & doxycycline, as well as lasix, however despite tx has continued to cough with green mucus. Subjectively she complained of ongoing fatigue/SOB/lower extremity edema/weakness/cough. Covid negative prior to admission. Hospital course: 11/05/2020, this morning on rounds patient looks good, oxygen saturations good, improving blood pressure, no fever, alert, green mucus cough with rhonchi, adequate output 11/06/20: No calls overnight. Patient reports feeling somewhat better this morning. Cough with green sputum continues per patient. Vitals stable, no supplemental oxygen requirement. Lung sounds clear, diminished. WBC improving, lactic acid normalized upon recheck this am. Hyperalbuminemia, 2.19 will start protein supplementation. 11/07/20: Persistent coughing overnight, reports her lungs are "crappy." Patient remains on room air. Vitals stable. Lung sounds diminished, rhonchi. Edema to BLE +1. WBC 12.48, elevated monocytes at 12.8%, neutrophils normal - suggestive of inflammatory process. Will continue levaquin to cover for bacterial etiology though this appears less likely. 11/08/20: Patient slept better last night with less coughing. Patient was up to the recliner for breakfast. Reports SOB improved from yesterday, she continues to cough. Vitals stable, oxygen normal on room air. Rhonchi on auscultation. Increased leg swelling noted on exam, legs rather shiny in appearance. Stopped IV fluids, obtained BNP = 395. Lasix IV given today. 11/09/20: Slept well last night, cough improving. Patient states she feels better today. Lung sounds improved today, decreased swelling with loop diuretics given yesterday. Patient tachycardic today with slightly irregular rhythm. EKG obtained today indicating sinus tachycardia, suspect this may be related to IV steroids. Patient is not ill appearing and labs improved today. Will plan to [facility] [place] today with tapering dose of oral steroids and lasix daily. Plan to complete repeat echocardiogram on outpatient basis as last echo was 4 years ago. Chronic, stable conditions: # CKD stage IIIb Avoid NSAID and IV contrast, Low Sodium diet. 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 Follows with oncology, Lotrozole Discharge and follow-up recommendations: - Discharge to [facility] in [place] as prior to hospitalization - New medications at discharge: Prednisone oral taper of 40mg PO daily x3 days, 30mg PO daily x 3 days, 20mg PO daily x 3 days and 10mg PO daily x 3 days, then stop; mucinex 600mg PO BID cough, levaquin 750mg x 1 more dose on 11/10/20 to complete course; lasix 20mg PO daily. - Follow-up with Dr Xiong/Rula Ramirez on next senior living rounds. - Plan for repeat echocardiogram on outpatient basis (last echo 2016) - Discharge Data Discharge Date: 11/09/20 Discharge Disposition: DC/Tfer to SNF 03 Condition: Good - Referral to Home Health Primary Care Physician: Inga Molina MD - Patient Instructions Diet: Heart Healthy Diet Driving: Do Not Drive Showering/Bathing: May Shower - Discharge Plan *PRESCRIPTION DRUG MONITORING PROGRAM REVIEWED*: Not Applicable *COPY OF PRESCRIPTION DRUG MONITORING REPORT IN PATIENT TARAN: Not Applicable Prescriptions/Med Rec: Furosemide 20 mg PO DAILY #30 tablet levoFLOXacin [Levaquin] 750 mg PO Q48H 1 Days #1 guaiFENesin [Mucinex] 600 mg PO BID #14 tab.er predniSONE [Prednisone] 10 mg PO DAILY 12 Days tab.ds.pk Cetirizine [ZyrTEC] 10 mg PO DAILY 30 Days tablet Home Medications: Home Meds Docusate Sodium [Colace] 100 mg PO BID@0800,1800 01/12/14 [History] Allopurinol [Zyloprim] 100 mg PO BID 07/26/16 [History] Iron Aspgly&PS/B12/C/Ca/FA/Suc [Niferex-150 Forte] 150 mg PO DAILY 07/26/16 [History] Multivit-Min/FA/Lycopene/Lut [Senior Tabs] 1 tab PO DAILY@1800 07/26/16 [History] Sennosides 17.2 mg PO BID 07/26/16 [History] atorvaSTATin [Lipitor] 10 mg PO BEDTIME 11/09/16 [History] Aspirin [Halfprin] 81 mg PO WITHBREAKFAST 01/23/17 [History] Levothyroxine [Synthroid] 88 mcg PO Q2D 01/23/17 [History] Letrozole 2.5 mg PO DAILY 05/09/17 [History] Levothyroxine [Synthroid] 44 mcg PO Q2D 12/13/17 [History] Nystatin 15 gm TOP TID PRN 11/09/18 [History] buPROPion HCL [Wellbutrin Xl] 300 mg PO DAILY 11/09/18 [History] traMADol HCl [Tramadol HCl] 50 mg PO 0700,199911/09/18 [History] Divalproex Sodium [Depakote ER] 1,000 mg PO BEDTIME 07/16/20 [History] Fluticasone/Umeclidin/Vilanter [Trelegy Ellipta 100-62.5-25] 1 each INH DAILY 07/16/20 [History] Ipratropium/Albuterol Sulfate [Iprat-Albut 0.5-3(2.5) MG/3 ML] 3 ml IH ASDIRECTED PRN 07/16/20 [History] Ipratropium/Albuterol Sulfate [Iprat-Albut 0.5-3(2.5) MG/3 ML] 3 ml IH BID 07/16/20 [History] Menthol [Cough Drops] 5 mg MM ASDIRECTED PRN 07/16/20 [History] Metoprolol Tartrate 12.5 mg PO BID 07/16/20 [History] Pantoprazole Sodium [Protonix] 40 mg PO BEDTIME 07/16/20 [History] Acetaminophen 1,000 mg PO BID #0 07/18/20 [Rx] Cholecalciferol (Vitamin D3) [Vitamin D3] 2,000 units PO DAILY 11/04/20 [History] Lurasidone [Latuda] 80 mg PO BEDTIME 11/04/20 [History] Sertraline [Zoloft] 100 mg PO DAILY 11/04/20 [History] estradioL [Estrace 0.01% Vaginal Crm] 0.5 - 1 g VAG ASDIRECTED 11/04/20 [History] Albuterol/Ipratropium [DuoNeb 3.0-0.5 MG/3 ML] 3 ml INH ONETIME PRN neb 11/09/20 [Rx] Cetirizine [ZyrTEC] 10 mg PO DAILY 30 Days tablet 11/09/20 [Rx] Furosemide 20 mg PO DAILY #30 tablet 11/09/20 [Rx] Levothyroxine [Synthroid] 88 mcg PO Q48H tablet 11/09/20 [Rx] guaiFENesin [Mucinex] 600 mg PO BID #14 tab.er 11/09/20 [Rx] levoFLOXacin [Levaquin] 750 mg PO Q48H 1 Days #1 11/09/20 [Rx] predniSONE [Prednisone] 10 mg PO DAILY 12 Days tab.ds.pk 11/09/20 [Rx] - Discharge Summary/Plan Comment DC Time >30 min.: Yes Total # of Minutes for Discharge Time: 40 - General Info Date of Service: 11/09/20 Functional Status: Reports: Pain Controlled, Tolerating Diet, Urinating, Incentive Spirometry. Denies: New Symptoms - Review of Systems General: Reports: Weakness HEENT: Reports: No Symptoms Pulmonary: Reports: Cough, Sputum (swallowed). Denies: Shortness of Breath, Wheezing Cardiovascular: Reports: Edema (improved from prior). Denies: Chest Pain, Palpitations Gastrointestinal: Reports: No Symptoms Genitourinary: Reports: Incontinence Musculoskeletal: Reports: No Symptoms Skin: Reports: No Symptoms Neurological: Reports: No Symptoms Psychiatric: Reports: No Symptoms - Patient Data Vitals - Most Recent: Last Vital Signs Temp 96.7 F L 11/09/20 06:51 Pulse 108 H 11/09/20 06:54 Resp 20 11/09/20 06:51 BP 121/76 11/09/20 06:51 Pulse Ox 96 11/09/20 06:54 Weight - Most Recent: 185 lb 3.013 oz I&O - Last 24 hours: Intake & Output 11/08/20 11/09/20 11/09/20 22:59 06:59 14:59 Intake Total 941 240 Balance 941 240 Lab Results - Last 24 hrs: Laboratory Results - last 24 hr 11/08/20 11/08/20 11/09/20 Range/Units 08:05 08:05 07:40 WBC 16.86 H (5.00-10.00) 10^3/uL RBC 3.59 L (3.80-5.50) 10^6/uL Hgb 9.9 L (12.0-16.0) g/dL Hct 30.7 L (37.0-47.0) % MCV 85.5 (82.0-92.0) fL MCH 27.6 (27.0-31.0) pg MCHC 32.2 (32.0-36.0) g/dL RDW 18.3 H (11.5-14.5) % Plt Count 329 (150-400) 10^3/uL MPV 9.8 (7.4-10.4) fL Immature Gran % (Auto) 0.7 (0.0-5.0) % Neut % (Auto) 77.3 H (50.0-70.0) % Lymph % (Auto) 13.8 L (20.0-40.0) % [place] % (Auto) 8.1 H (2.0-8.0) % Eos % (Auto) 0.0 L (1.0-3.0) % Baso % (Auto) 0.1 (0.0-1.0) % Neut # (Auto) 13.06 H (2.50-7.00) 10^3/uL Lymph # (Auto) 2.32 (1.00-4.00) 10^3/uL [place] # (Auto) 1.36 H (0.10-0.80) 10^3/uL Eos # (Auto) 0.00 L (0.10-0.30) 10^3/uL Baso # (Auto) 0.01 (0.00-0.10) 10^3/uL Immature Gran # (Auto) 0.11 (0.00-0.50) 10^3/uL Sodium (136-145) mmol/L Potassium (3.5-5.1) mmol/L Chloride (98-107) mmol/L Carbon Dioxide (21.0-32.0) mmol/L Anion Gap (5-15) mmol/L BUN (7-18) mg/dL Creatinine (0.51-1.17) mg/dL Est Cr Clr Drug Dosing mL/min Estimated GFR (MDRD) mL/min Glucose (70-140) mg/dL Lactic Acid (0.4-2.0) mmol/L Calcium (8.7-10.3) mg/dL Total Bilirubin (0.2-1.0) mg/dL AST (15-37) U/L ALT (14-63) U/L Alkaline Phosphatase (46-116) U/L C-Reactive Protein (0.0-0.9) mg/dL C-React Prot High Sens 33.25 mg/L B-Natriuretic Peptide 395 H (0-100) pg/mL Total Protein (6.4-8.2) g/dL Albumin (3.40-5.00) g/dL 11/09/20 11/09/20 Range/Units 07:40 07:40 WBC (5.00-10.00) 10^3/uL RBC (3.80-5.50) 10^6/uL Hgb (12.0-16.0) g/dL Hct (37.0-47.0) % MCV (82.0-92.0) fL MCH (27.0-31.0) pg MCHC (32.0-36.0) g/dL RDW (11.5-14.5) % Plt Count (150-400) 10^3/uL MPV (7.4-10.4) fL Immature Gran % (Auto) (0.0-5.0) % Neut % (Auto) (50.0-70.0) % Lymph % (Auto) (20.0-40.0) % [place] % (Auto) (2.0-8.0) % Eos % (Auto) (1.0-3.0) % Baso % (Auto) (0.0-1.0) % Neut # (Auto) (2.50-7.00) 10^3/uL Lymph # (Auto) (1.00-4.00) 10^3/uL [place] # (Auto) (0.10-0.80) 10^3/uL Eos # (Auto) (0.10-0.30) 10^3/uL Baso # (Auto) (0.00-0.10) 10^3/uL Immature Gran # (Auto) (0.00-0.50) 10^3/uL Sodium 136 (136-145) mmol/L Potassium 3.7 (3.5-5.1) mmol/L Chloride 102 (98-107) mmol/L Carbon Dioxide 24.8 (21.0-32.0) mmol/L Anion Gap 12.9 (5-15) mmol/L BUN 21 H (7-18) mg/dL Creatinine 1.08 (0.51-1.17) mg/dL Est Cr Clr Drug Dosing 36.09 mL/min Estimated GFR (MDRD) 49 mL/min Glucose 85 (70-140) mg/dL Lactic Acid 1.9 (0.4-2.0) mmol/L Calcium 8.8 (8.7-10.3) mg/dL Total Bilirubin 0.3 (0.2-1.0) mg/dL AST 22 (15-37) U/L ALT 28 (14-63) U/L Alkaline Phosphatase 90 (46-116) U/L C-Reactive Protein 1.7 H (0.0-0.9) mg/dL C-React Prot High Sens mg/L B-Natriuretic Peptide (0-100) pg/mL Total Protein 6.1 L (6.4-8.2) g/dL Albumin 2.20 L (3.40-5.00) g/dL JESUS Results - Last 24 hrs: Microbiology 11/04/20 21:45 Aerobic Blood Culture - Preliminary Blood - Venous NO GROWTH AFTER 4 DAYS Anaerobic Blood Culture - Preliminary NO GROWTH AFTER 4 DAYS 11/04/20 16:00 Aerobic Blood Culture - Preliminary Blood - Venous - Lab Draw NO GROWTH AFTER 4 DAYS Anaerobic Blood Culture - Preliminary NO GROWTH AFTER 4 DAYS Med Orders - Current: Current Medications Acetaminophen (Acetaminophen 500 Mg Tab) 1,000 mg PO BID TOMMY Last Admin: 11/09/20 08:24 Dose: 1,000 mg Documented by: Acetaminophen (Acetaminophen 325 Mg Tab) 650 mg PO Q4H PRN PRN Reason: Pain Albuterol/Ipratropium (Albuterol/Ipratropium 3.0-0.5 Mg/3 Ml Neb Soln) 3 ml INH ONETIME PRN PRN Reason: SHORTNESS OF BREATH Albuterol/Ipratropium (Albuterol/Ipratropium 3.0-0.5 Mg/3 Ml Neb Soln) 3 ml INH TIDRT [facility] Last Admin: 11/09/20 06:54 Dose: 3 ml Documented by: Allopurinol (Allopurinol 100 Mg Tab) 100 mg PO BID [facility] Last Admin: 11/09/20 08:24 Dose: 100 mg Documented by: Atorvastatin Calcium (Atorvastatin 10 Mg Tab) 10 mg PO BEDTIME [facility] Last Admin: 11/08/20 20:00 Dose: 10 mg Documented by: Cetirizine HCl (Cetirizine 10 Mg Tab) 10 mg PO DAILY [facility] Last Admin: 11/09/20 08:24 Dose: 10 mg Documented by: Docusate Sodium (Docusate Sodium 100 Mg Cap) 100 mg PO BID@0800,1800 [facility] Last Admin: 11/09/20 08:23 Dose: 100 mg Documented by: Enoxaparin Sodium (Enoxaparin 40 Mg/0.4 Ml Syringe) 40 mg SUBCUT Q24H [facility] Last Admin: 11/08/20 11:06 Dose: 40 mg Documented by: Guaifenesin (Guaifenesin 600 Mg Tab.Er) 600 mg PO BID [facility] Last Admin: 11/09/20 08:23 Dose: 600 mg Documented by: Levofloxacin/Dextrose 500 mg/ (Premix) 100 mls @ 100 mls/hr IV Q48H [facility] Last Admin: 11/08/20 16:40 Dose: 100 mls/hr Documented by: Levofloxacin/Dextrose 250 mg/ (Premix) 50 mls @ 50 mls/hr IV Q48H [facility] Last Admin: 11/08/20 15:20 Dose: 50 mls/hr Documented by: Sodium Chloride (Normal Saline) 100 mls @ 100 mls/hr IV ASDIRECTED [facility] Last Admin: 11/08/20 16:42 Dose: 100 mls/hr Documented by: Levothyroxine Sodium (Levothyroxine 88 Mcg Tab) 44 mcg PO Q48H [facility] Last Admin: 11/09/20 06:30 Dose: 44 mcg Documented by: Levothyroxine Sodium (Levothyroxine 88 Mcg Tab) 88 mcg PO Q48H [facility] Last Admin: 11/08/20 06:30 Dose: Not Given Documented by: Methylprednisolone Sodium Succinate (Methylprednisolone Sodium Succinate 125 Mg/2 Ml Sdv) 40 mg IVPUSH BID [facility] Last Admin: 11/09/20 08:58 Dose: 40 mg Documented by: Bupropion Hcl 300mg (Er Tablet - Ptom) 300 each PO DAILY [facility] Last Admin: 11/09/20 09:17 Dose: 300 each Documented by: Divalproex Sodium [ Depakote Er] 500 Mg Tab.Er.24h Own Med 1,000 mg PO BEDTIME [facility] Last Admin: 11/08/20 20:01 Dose: 1,000 mg Documented by: Vu Ellipta 100mcg/62.5mcg/25mcg -Ptom 1 each INH DAILY [facility] Last Admin: 11/09/20 09:16 Dose: 1 each Documented by: Letrozole 2.5 Mg (Tablet - Ptom) 2.5 mg PO DAILY [facility] Last Admin: 11/09/20 09:18 Dose: 2.5 mg Documented by: Lurasidone 80 Mg (Tablet Own Med ) 80 mg PO BEDTIME [facility] Last Admin: 11/08/20 20:02 Dose: 80 mg Documented by: Nystatin (Nystatin Topical Powder 15 Gm Bottle) 15 gm TOP TID PRN PRN Reason: Inflammation Ondansetron HCl (Ondansetron 4 Mg Tab.Dis) 4 mg PO Q6H PRN PRN Reason: Nausea/Vomiting Last Admin: 11/05/20 20:45 Dose: 4 mg Documented by: Pantoprazole Sodium (Pantoprazole 40 Mg Tab.Cr) 40 mg PO BEDTIME [facility] Last Admin: 11/08/20 20:00 Dose: 40 mg Documented by: Polysaccharide Iron Complex (Iron Polysaccharides Complex 150 Mg Cap) 150 mg PO DAILY [facility] Last Admin: 11/09/20 08:23 Dose: 150 mg Documented by: Senna/Docusate Sodium (Docusate Sodium/Sennosides 50-8.6 Mg Tab) 2 tab PO BID [facility] Last Admin: 11/09/20 08:23 Dose: 2 tab Documented by: Sertraline HCl (Sertraline 50 Mg Tab) 100 mg PO DAILY [facility] Last Admin: 11/09/20 08:24 Dose: 100 mg Documented by: Sodium Chloride (Sodium Chloride 0.9% 10 Ml Syringe) 10 ml FLUSH Q8HR PRN PRN Reason: keep vein open Tramadol HCl (Tramadol 50 Mg Tab) 50 mg PO [facility] Last Admin: 11/09/20 06:27 Dose: 50 mg Documented by: Discontinued Medications Albuterol/Ipratropium (Albuterol/Ipratropium 3.0-0.5 Mg/3 Ml Neb Soln) 3 ml INH BIDRT [facility] Last Admin: 11/05/20 10:46 Dose: 3 ml Documented by: Albuterol/Ipratropium (Albuterol/Ipratropium 3.0-0.5 Mg/3 Ml Neb Soln -Ptom) 3 ml INH ONETIME PRN PRN Reason: SHORTNESS OF BREATH Albuterol/Ipratropium (Albuterol/Ipratropium 3.0-0.5 Mg/3 Ml Neb Soln) 3 ml INH BIDRT [facility] Last Admin: 11/07/20 07:56 Dose: 3 ml Documented by: Ceftriaxone Sodium (Ceftriaxone 1 Gm Vial) 1 gm IVPUSH ONETIME ONE Stop: 11/04/20 22:35 Last Admin: 11/04/20 23:03 Dose: Not Given Documented by: Furosemide (Furosemide 40 Mg/4 Ml Vial) 20 mg IVPUSH NOW ONE Stop: 11/08/20 11:01 Last Admin: 11/08/20 11:18 Dose: 20 mg Documented by: Guaifenesin/Phenylephrine HCl (Guaifenesin/Dextromethorphan 100-10 Mg/5 Ml Soln 5 Ml Cup) 10 ml PO Q4H PRN PRN Reason: Cough Last Admin: 11/07/20 04:08 Dose: 10 ml Documented by: Dextrose/Sodium Chloride (Dextrose 5%-1/2 Ns) 1,000 mls @ 200 mls/hr IV ASDIRECTED [facility] Last Admin: 11/05/20 05:15 Dose: 200 mls/hr Documented by: Levofloxacin/Dextrose (Levaquin In D5w 500 Mg/100 Ml) Confirm Administered Dose 100 mls @ as directed IV .STK-MED ONE Stop: 11/04/20 17:20 Last Admin: 11/04/20 17:32 Dose: Not Given Documented by: Sodium Chloride (Normal Saline) 500 mls @ 500 mls/hr IV .BOLUS [facility] Last Admin: 11/04/20 23:12 Dose: 500 mls/hr Documented by: Vancomycin HCl 1.25 gm/ Sodium (Chloride) 250 mls @ 166.667 mls/hr IV Q24H [facility] Last Admin: 11/04/20 23:47 Dose: Not Given Documented by: Vancomycin HCl 1.25 gm/ Sodium (Chloride) 250 mls @ 166.667 mls/hr IV Q24H [facility] Last Admin: 11/05/20 22:45 Dose: 166.667 mls/hr Documented by: Vancomycin HCl 1.75 gm/ Sodium (Chloride) 250 mls @ 100 mls/hr IV ONETIME ONE Stop: 11/05/20 01:29 Last Admin: 11/05/20 00:07 Dose: 100 mls/hr Documented by: Sodium Chloride (Normal Saline) 1,000 mls @ 100 mls/hr IV ASDIRECTED [facility] Last Admin: 11/08/20 00:24 Dose: 100 mls/hr Documented by: Levothyroxine Sodium (Levothyroxine 88 Mcg Tab) 44 mcg PO ONETIME ONE Stop: 11/05/20 12:01 Last Admin: 11/05/20 12:13 Dose: 44 mcg Documented by: Methylprednisolone Sodium Succinate (Methylprednisolone Sodium Succinate 125 Mg/2 Ml Sdv) 40 mg IVPUSH Q8H [facility] Last Admin: 11/08/20 09:39 Dose: 40 mg Documented by: Fexofenadine 180 Mg (Tablet - Ptom) 180 mg PO DAILY [facility] Last Admin: 11/07/20 08:26 Dose: 180 mg Documented by: Sertraline HCl (Sertraline 50 Mg Tab - Ptom) 100 mg PO DAILY [facility] Last Admin: 11/05/20 10:45 Dose: 100 mg Documented by: - Exam Quality Assessment: Reports: DVT Prophylaxis. Denies: Supplemental Oxygen, Skin Breakdown General: Reports: Alert, Oriented, Cooperative, No Acute Distress HEENT: Reports: Pupils Equal, Mucous Membr. Moist/[place]: Reports: Supple, Trachea Midline Lungs: Reports: Decreased Breath Sounds, Rhonchi Cardiovascular: Reports: Irregular Rhythm, Tachycardia (slightly tachy 100s), Murmurs (Female) Exam: Deferred Rectal (Female) Exam: Deferred Back Exam: Reports: Normal Inspection, Full Range of Motion Extremities: Normal Inspection, Non-Tender, Pedal Edema (+1 BLE) Skin: Reports: Warm, Dry, Intact Neurological: Reports: No New Focal Deficit Psy/Mental Status: Reports: Alert, Normal Affect, Normal Mood #1 Interpretation EKG Date: 11/09/20 Time: 11:17 Rhythm: NSR [place]: Normal P-Wave: Present QRS: Normal ST-T: Normal QT: Normal Comparison: Change From Previous EKG EKG Interpretation Comments: Sinus tachycardia with premature supraventricular complexes
[2020-11-09 10:33] VITALS: BP 121/76; PULSE 108
[2020-11-09] MEDS: Enoxaparin 40 MG/0.4 ML Syringe SUBCUT SCH (11:50)
== END 2020-11-09 12:23 | DRG 193 ==
LOC: KA.MS 10:49 → OBSVTOIN 11-05 10:49
PROVIDERS: ADMIT Nurse Practitioner Family; ATTEND Nurse Practitioner Family
DX: J18.9 Pneumonia, unspecified organism (principal); I50.33 Acute on chronic diastolic (congestive) heart failure; R60.9 Edema, unspecified; R06.02 Shortness of breath; J44.0 Chronic obstructive pulmonary disease with (acute) lower respiratory infection; C34.91 Malignant neoplasm of unspecified part of right bronchus or lung; C34.92 Malignant neoplasm of unspecified part of left bronchus or lung; I13.0 Hypertensive heart and chronic kidney disease with heart failure and stage 1 through stage 4 chronic kidney disease, or unspecified chronic kidney disease; Z88.1 Allergy status to other antibiotic agents; J40 Bronchitis, not specified as acute or chronic; Z91.018 Allergy to other foods; Z20.822 Contact with and (suspected) exposure to COVID-19; I50.9 Heart failure, unspecified; T38.0X5A Adverse effect of glucocorticoids and synthetic analogues, initial encounter; N18.32 Chronic kidney disease, stage 3b; E78.5 Hyperlipidemia, unspecified; E03.9 Hypothyroidism, unspecified; D63.1 Anemia in chronic kidney disease; F31.9 Bipolar disorder, unspecified; N18.30 Chronic kidney disease, stage 3 unspecified; E55.9 Vitamin D deficiency, unspecified; C54.1 Malignant neoplasm of endometrium; E79.0 Hyperuricemia without signs of inflammatory arthritis and tophaceous disease; E66.9 Obesity, unspecified; C50.919 Malignant neoplasm of unspecified site of unspecified female breast; R73.03 Prediabetes; Z90.49 Acquired absence of other specified parts of digestive tract; Z79.899 Other long term (current) drug therapy; Z79.890 Hormone replacement therapy; Z79.82 Long term (current) use of aspirin; Z88.0 Allergy status to penicillin; Z88.8 Allergy status to other drugs, medicaments and biological substances; C50.419 Malignant neoplasm of upper-outer quadrant of unspecified female breast; Z17.0 Estrogen receptor positive status [ER+]; K57.30 Diverticulosis of large intestine without perforation or abscess without bleeding; G89.4 Chronic pain syndrome; Z87.891 Personal history of nicotine dependence
CPT/HCPCS: 36415; 71045; 80053; 81001; 83605; 83880; 85025; 86140; 86141; 87040; 93005; 94640; 96365; 96375; 96376; A9270-GY; G0378; G0379; J1650; J1940; J1956; J2930; J3370; J7030; J7040; J7042; J7050; J7620-GY